=== PATIENT | male | born 1960 | race Caucasian/White ===

== ENCOUNTER 2022-12-20 10:49 | Emergency (ER) | payer MEDICAID ==
--- NOTE | 2022-12-20 10:59 | ERPHSYRPT ---
- History of Present Illness Time Seen by Provider: 12/20/22 10:59 Source: patient, EMS Exam Limitations: no limitations Physician History: This is a 62-year-old white male patient who has chronic back pain and degenerative disc disease as well as osteoarthritis in his back and presents with worsening back pain in the last 2 days. It is low back pain and there was no traumatic injury. Patient is on extended release morphine, Valium and gabapentin. He took those medications between 5 AM and 6 AM this morning. He does not have any urinary or bowel incontinence. He has no constipation and he has no numbness in his feet. He denies chest pain and he denies shortness of breath. He has no abdominal pain. Patient states that his pain in the last 2 days have worsened despite his treatment at home. Patient is an insulin- dependent diabetic, has hypertension, has hyperlipidemia, gastroesophageal reflux disease, COPD, and is taking Plavix. Timing/Duration: day(s) (2) Method of Injury: other (No acute traumatic injury) Quality: sharp, stabbing Back Pain Location: lumbar spine Severity of Pain-Max: moderate Severity of Pain-Current: moderate Modifying Factors: Improves With: movement Associated Symptoms: lower back pain, muscle spasms, No loss of bowel control, No constipation, No nausea, No vomiting, No numbness in legs/feet Previous symptoms: same symptoms as today, no recent treatment Allergies/Adverse Reactions: amitriptyline HCl [From Elavil] Allergy (Severe, Verified 12/20/22 11:08) Rapid Heart Beat hallucination tramadol HCl [From Ultram] Allergy (Severe, Verified 12/20/22 11:08) double vision alprazolam [From Xanax] Adverse Reaction (Severe, Verified 12/20/22 11:08) makes me aggitated Home Medications: Aspirin 81 mg PO HS 01/04/16 [History] Atorvastatin Calcium [Lipitor] 10 mg PO DAILY 01/04/16 [History] Bupropion HCl Xl 150 mg [Wellbutrin XL 150 MG] 150 mg PO HS 01/04/16 [History] Cholecalciferol (Vitamin D3) [Vitamin D3] 5,000 unit PO DAILY 01/04/16 [History] Clopidogrel Bisulfate [PLAVIX 75 MG Tablet] 75 mg PO DAILY 01/04/16 [History] Clorazepate Dipotassium 15 mg PO TID 01/04/16 [History] Dextran 70/Hypromellose [Artificial Tears Eye Drops] 1 drop OP BID 01/04/16 [History] Famotidine 40 mg PO BID 01/04/16 [History] Fluticasone/Salmeterol [Advair 250-50 Diskus] 1 each IH BID 01/04/16 [History] Gabapentin [Neurontin] 300 mg PO TID 01/04/16 [History] Insulin Aspart [NovoLOG Insulin] 5 unit SQ QPM 01/04/16 [History] Insulin Glargine [Lantus Insulin] 50 unit SQ DAILY 01/04/16 [History] Ipratropium [place] 0.5 mg [Atrovent 0.5MG NEBULE] 0.5 mg IH BID 01/04/16 [History] Meloxicam 15 mg [Meloxicam 15 MG] 15 mg PO DAILY 01/04/16 [History] Morphine Sulfate [Morphine Sulfate ER] 60 mg PO TID 01/04/16 [History] Nebivolol HCl [Bystolic] 5 mg PO QAM 01/04/16 [History] Nebivolol HCl [Bystolic] 10 mg PO HS 01/04/16 [History] Omeprazole 20 MG [Prilosec 20 mg] 40 mg PO BID 01/04/16 [History] Ranolazine 500 MG [Ranexa 500 MG] 1,000 mg PO BID 01/04/16 [History] Theophylline Anhydrous [Dmitriy-24] 300 mg PO BID 01/04/16 [History] Tizanidine HCl 4 mg [Zanaflex 4 MG] 4 mg PO TID 01/04/16 [History] raNITIdine HCl [Zantac] 300 mg PO DAILY 01/04/16 [History] Hx Tetanus, Diphtheria Vaccination/Date Given: (unknown) Hx Influenza Vaccination/Date Given: Yes Hx Pneumococcal Vaccination/Date Given: Yes Travel Risk - International Travel Have you traveled outside of the country in past 3 weeks: No - Coronavirus Screening Are you exhibiting any of the following symptoms?: No Close contact with a COVID-19 positive Pt in past 14-21 Days: No - Review of Systems Constitutional: No Symptoms Eyes: No Symptoms Ears, Nose, & Throat: No Symptoms Respiratory: No Symptoms Cardiac: No Symptoms Abdominal/Gastrointestinal: No Symptoms Genitourinary Symptoms: No Symptoms Musculoskeletal: Back Pain, No Fall Skin: No Symptoms Neurological: No Symptoms Psychological: No Symptoms Endocrine: No Symptoms Hematologic/Lymphatic: No Symptoms Immunological/Allergic: No Symptoms All Other Systems: Reviewed and Negative - Past Medical History Pertinent Past Medical History: Yes Neurological History: Migraines, Peripheral Neuropathy ENT History: Cataracts Cardiac History: Coronary Artery Disease, Hypertension Respiratory History: Asthma, COPD, Emphysema Endocrine Medical History: Diabetes Type II Musculoskeletal History: Arthritis, Degenerative Disk Disease, Osteoarthritis, Other GI Medical History: GERD History: No Pertinent History Psycho-Social History: Anxiety, Depression Male Reproductive Disorders: No Pertinent History Other Medical History: carpel tunnel - Past Surgical History Past Surgical History: Yes Neuro Surgical History: No Pertinent History Cardiac: Cardiac Stent Respiratory: Other Gastrointestinal: No Pertinent History Genitourinary: No Pertinent History Musculoskeletal: Other Male Surgical History: No Pertinent History Other Surgical History: finger surgery, - Social History Smoking Status: Former smoker How long have you smoked: 40 years Exposure to second hand smoke: No Alcohol Use: None Drug Use: none Patient Lives Alone: No Significant Family History: heart disease, diabetes, hypertension - Nursing Vital Signs Nursing Vital Signs: Initial Vital Signs Temperature 98.3 F 12/20/22 10:51 Pulse Rate 70 12/20/22 10:51 Blood Pressure 133/82 12/20/22 10:51 O2 Sat by Pulse Oximetry 97 12/20/22 10:51 Pain Scale Pain Intensity 4 - Physical Exam General Appearance: no apparent distress, alert, anxiety, other (Patient arrives by paramedics 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) Eye Exam: PERRL/EOMI, eyes nml inspection Ears, Nose, Throat Exam: normal ENT inspection, moist mucous membranes Neck Exam: normal inspection, non-tender, full range of motion Respiratory Exam: normal breath sounds, lungs clear, airway intact, No chest tenderness, No respiratory distress Cardiovascular Exam: regular rate/rhythm, normal heart sounds, normal peripheral pulses Gastrointestinal Exam: soft, normal bowel sounds, No tenderness Rectal Exam: not done Back Exam: normal inspection, normal range of motion, vertebral tenderness (Lumbar level), muscle spasm (Lumbar level), other (When I asked him to show me where his back pain is he was able to quickly and swiftly flex his back forward. He did not appear to be in severe discomfort while performing that maneuver), No CVA tenderness Extremity Exam: normal inspection, normal range of motion, pelvis stable Neurologic Exam: alert, oriented x 3, cooperative, rn care transition II-XII nml as tested, normal mood/affect Skin Exam: normal color, warm, dry Lymphatic Exam: No adenopathy SpO2 Interpretation: normal O2 Delivery: Room Air - Course Nursing assessment & vital signs reviewed: Yes Ordered Tests: Active Orders 24 hr Category Date Time Status LUMBAR SPINE W/O [CT] Stat Exams 12/20/22 11:08 Completed Medication Summary Discontinued Medications Generic Name Dose Route Start Last Admin Trade Name Freq PRN Reason Stop Dose Admin Methylprednisolone Sodium 0 mg 12/20/22 12:43 Succinate 125 mg/ Sterile IM 12/20/22 12:44 Water 2 ml STAT ONE Diazepam 2.5 mg 12/20/22 12:44 Diazepam 5 Mg Tablet PO 12/20/22 12:45 STAT ONE Hydromorphone HCl 1 mg 12/20/22 12:43 Hydromorphone 1 Mg/1ml Inj IM 12/20/22 12:44 STAT ONE Ondansetron HCl 4 mg 12/20/22 12:45 Zofran 4 Mg/Udtablet Orally Disintegrating PO 12/20/22 12:46 STAT ONE - Progress Progress: improved, pain not gone completely Progress Note: 12/20/22 11:51 CT scan of the lumbar spine was compared to a CT scan of the lumbar spine performed in 2013. There is worsening moderate to advanced multilevel degenerative disc changes/disease better evaluated by MRI. There is also interval worsening of markedly advanced bilateral hip degenerative changes. There are no acute compression fractures, dislocations or subluxations present. This patient's medical issue is 1 of low complexity. The level of complexity and the work-up performed is based on review of the patient's past medical history, review of the patient's medication list, review of the patient's drug allergy list, history present illness and physical findings on examination. ct scan lumbar spine contrast. I Reviewed the results of the studies. No acute, emergent medical issue. Will discuss with him how we can help him the best in the ED today. 12/20/22 11:59 07/03/23 12:47 The patient is focused on nerve pain control. The patient needs to get an outpatient referral from his primary care physician to a pain management physician. Today, I told him I would give him an injection of steroid 125 mg intramuscularly x1, Dilaudid 1 mg intramuscularly x1, oral Valium 2.5 mg x 1 and Zofran 4 mg ODT. Patient states that he is allergic to amitriptyline and he states that high-dose steroids and long-term steroids give him steroid rage and so we will avoid that long-term. Counseled pt/family regarding: diagnosis, need for follow-up, rad results Medical Desision Making - Independent Historian Additional History obtained from: [employer]/[facility] - Diagnostic Testing Diagnostic test were ordered, analyzed, and reviewed by me: Yes Radiological Interpretation: Reviewed by me, Teleradiologist Report - Risk of complications Low Risk: Low risk of morbidity from additional dx testing or treatment - Departure Departure Disposition: Home Clinical Impression: Acute exacerbation of chronic low back pain Condition: Stable Critical Care Time: No Referrals: DESIREE NGUYEN [ACTIVE STAFF] - Follow up/PCP as directed Additional Instructions: Call your primary care physician today and make arrangements for follow-up appointment and discuss possible referral to a pain specialist. Continue your other medication as prescribed
[2022-12-20 11:36] VITALS: PULSE 70
--- NOTE | 2022-12-20 11:42 | XRAY ---
Indication: Severe low back pain. No known injury. Multiple contiguous axial images obtained through the lumbar spine. Sagittal and coronal reformatted images obtained. Comparison: December 12, 2013 Osseous structures remain demineralized consistent with patient's age. Again moderate L4-S1 annular disc osteophyte complex with degenerative vacuum disc phenomena producing spinal canal narrowing and bilateral foraminal stenosis grossly unchanged. New L1-L4 broad-based disc bulge producing spinal canal narrowing and bilateral foraminal stenosis greatest at L3-L4. Also new L1-L2 degenerative vacuum disc phenomena. Facets remain symmetric. Again incidental 5 mm left sacral ala bone island. Visualized SI joints bilaterally symmetric. Sagittal and coronal reformatted images again demonstrate normal lumbar alignment/lordosis with L4-S1 disc space loss. New L1-L2 disc space narrowing. No acute compression fracture or subluxation. Visualized noncontrasted soft tissues now demonstrates minimal aortoiliac calcifications. Initial jonny scan demonstrates worsening markedly advanced bilateral hip degenerative changes, right greater than left. Impression: 1. Interval worsening moderate/advanced multilevel degenerative disc disease better evaluated with outpatient MRI. 2. Also interval worsening markedly advanced bilateral hip degenerative changes. 3. Chronic findings including osteopenia, tiny left sacral bone island, and arteriosclerotic disease.
[2022-12-20] MEDS ORDERED: solu-MEDROL 125 MG, Sterile H2O 10 ml 2 ML IM ONE ×2 (12:43)
[2022-12-20] MEDS ORDERED: Hydromorphone 1 mg/ml Injection IM ONE (12:43)
[2022-12-20] MEDS ORDERED: Valium 5 MG PO ONE (12:44)
[2022-12-20] MEDS ORDERED: ZOFRAN ODT 4 MG PO ONE (12:45)
[2022-12-20] MEDS ORDERED: Valium 5 MG ONE (12:55)
[2022-12-20] MEDS ORDERED: Sterile H2O 10 ml IJ ONE (12:55)
[2022-12-20] MEDS ORDERED: solu-MEDROL ONE (12:56)
[2022-12-20] MEDS ORDERED: ZOFRAN ODT 4 MG ONE (12:56)
[2022-12-20] MEDS ORDERED: Hydromorphone 1 mg/ml Injection ONE (12:56)
[2022-12-20 13:10] VITALS: BP 120/73; O2SAT 97
== END 2022-12-20 13:37 | disposition home or self-care (01) ==
LOC: ED 10:49
DX: G89.29 Other chronic pain (principal); M54.50 Low back pain, unspecified; E11.42 Type 2 diabetes mellitus with diabetic polyneuropathy; I10 Essential (primary) hypertension; E78.5 Hyperlipidemia, unspecified; Z79.02 Long term (current) use of antithrombotics/antiplatelets; Z79.4 Long term (current) use of insulin; Z79.891 Long term (current) use of opiate analgesic; Z79.899 Other long term (current) drug therapy
CPT/HCPCS: 72131; 96372; 99284; J1170; J2930; Q0162; A9270-GY

== ENCOUNTER 2023-08-24 09:00 | Observation (INO) | payer MEDICAID ==
--- NOTE | 2023-08-24 09:05 | ERPHSYRPT ---
- History of Present Illness Time Seen by Provider: 08/24/23 09:04 Source: patient, EMS, old records Exam Limitations: no limitations Physician History: This is an obese 63-year-old white male patient of Dr. Sanderson who is a resident from [facility] brought to us by the paramedics who provided additional, independent history secondary to the patient's confusion. In addition I reviewed the senior living notes. Patient was brought to us because of worsening shortness of breath over the last few days. Patient has a history of COPD and wears 4 L of oxygen via nasal cannula. In addition, the patient was not tracking well and is confused. He presents with a low-grade fever. His room air oxygen saturation levels on room air were 94%. Patient has a history of osteoarthritis and chronic low back pain. In addition he has a history of insulin-dependent diabetes, hypertension, hyperlipidemia, gastroesophageal reflux disease, coronary disease and peripheral neuropathy. Patient is on Plavix daily. Patient denies chest pain and he denies abdominal pain. He is mildly confused. Severity of Dyspnea-Max: mild Severity of Dyspnea-Current: mild Possible Cause: occasional episodes Modifying Factors: Improves With: activity Associated Symptoms: cough, No chest pain/discomfort Allergies/Adverse Reactions: amitriptyline HCl [From Elavil] Allergy (Severe, Verified 08/24/23 09:24) Rapid Heart Beat hallucination tramadol HCl [From Ultram] Allergy (Severe, Verified 08/24/23 09:24) double vision divalproex sodium [From Depakote] Allergy (Verified 08/24/23 09:24) alprazolam [From Xanax] Adverse Reaction (Severe, Verified 08/24/23 09:24) makes me aggitated Home Medications: Cholecalciferol (Vitamin D3) [Vitamin D3] 5,000 unit PO DAILY 01/04/16 [History] Clopidogrel Bisulfate [PLAVIX 75 MG Tablet] 75 mg PO DAILY 01/04/16 [History] Famotidine 40 mg PO BID 01/04/16 [History] Insulin Aspart [NovoLOG Insulin] 10 unit SQ AC 01/04/16 [History] Morphine Sulfate [Morphine Sulfate ER] 60 mg PO TID 01/04/16 [History] Ranolazine 500 MG [Ranexa 500 MG] 500 mg PO BID 01/04/16 [History] Baclofen 10 mg [Lioresal 10 mg] 10 mg PO BID 12/20/22 [History] Calcium Carbonate/Vitamin D3 [Calcium 600-Vit D3 200 Tablet] 1 each PO DAILY 12/20/22 [History] Diazepam [Valium] 2 mg PO BID 12/20/22 [History] Fluticasone Propionate [Flovent Diskus] 1 spray NS DAILY 12/20/22 [History] Fluticasone/Umeclidin/Vilanter [Trelegy Ellipta 200-62.5-25] 1 inh PO DAILY 12/20/22 [History] Folic Acid 1 mg [Folate 1 mg] 1 mg PO DAILY 12/20/22 [History] Linagliptin [Tradjenta] 5 mg PO DAILY 12/20/22 [History] Montelukast Sodium 10 mg [Singulair 10 MG] 10 mg PO QHS 12/20/22 [History] PANTOPRAZOLE 40 mg Tablet [Protonix 40MG Tablet] 40 mg PO BID 12/20/22 [History] Sertraline HCl 50 mg PO DAILY 12/20/22 [History] Sucralfate 1 gm [Carafate 1 GM] 1 gm PO BID 12/20/22 [History] guaiFENesin [Mucus ER] 600 mg PO Q12H 12/20/22 [History] Acetaminophen 325 mg [Tylenol 325 mg] 650 mg PO Q4H PRN PRN 08/24/23 [History] Albuterol Common Canister [Ventolin Common Canister] 2 puff IH Q4H PRN PRN 08/24/23 [History] Calcium Carbonate [Alexis-Gest] 400 mg PO Q6H PRN PRN 08/24/23 [History] Carboxymethylcellulose Sodium [Refresh Liquigel] 2 drop OP QID 08/24/23 [History] Gabapentin 400 mg PO QID 08/24/23 [History] Insulin Aspart [Insulin Aspart Flexpen] 1 unit SQ UD 08/24/23 [History] Insulin Detemir [Levemir] 60 unit SQ BID 08/24/23 [History] Latanoprost [Xalatan] 1 drop OP QHS 08/24/23 [History] Loperamide HCl 2 mg [Imodium 2 mg] 2 mg PO Q6H PRN PRN 08/24/23 [History] Mag Hydrox/Aluminum Hyd/Simeth [Mylanta Maximum Strength Liq] 10 ml PO QID 08/24/23 [History] Melatonin 10 mg PO QHS 08/24/23 [History] Metoclopramide HCl 5 mg PO BID 08/24/23 [History] Mineral Oil/Hydrophil Petrolat [Aquaphor Healing Ointment] 1 applic TOP Q12H PRN PRN 08/24/23 [History] Nitroglycerin 0.4 mg Tablet [Nitrostat 0.4 MG Tablet] 0.4 mg SL UD 08/24/23 [History] Non-Formulary Drug [Non-Formulary Item] 1 applic TOP TID 08/24/23 [History] Propranolol HCl 60 mg PO BID 08/24/23 [History] Rosuvastatin Calcium 20 mg PO QHS 08/24/23 [History] Sodium Chloride Nasal Gateway [OCEAN Nasal Gateway] 2 spray NS Q4H PRN PRN 08/24/23 [History] Sodium Chloride/Aloe Vera [Saline Nasal Gel] 1 applic NS Q2H/PRN PRN 08/24/23 [History] Topiramate [Topamax] 75 mg PO BID 08/24/23 [History] Zinc Gluconate [Zinc] 50 mg PO DAILY 08/24/23 [History] levalbuterol HCl [Xopenex 1.25 MG/0.5 ML UD NEBULE] 2 puff IH QID 08/24/23 [History] Hx Tetanus, Diphtheria Vaccination/Date Given: (unknown) Hx Influenza Vaccination/Date Given: Yes Hx Pneumococcal Vaccination/Date Given: Yes Travel Risk - International Travel Have you traveled outside of the country in past 3 weeks: No - Coronavirus Screening Are you exhibiting any of the following symptoms?: Yes Symptoms: Fever, Shortness of Breath Close contact with a COVID-19 positive Pt in past 14-21 Days: No - Vaccine Status Have you recieved a Covid-19 vaccination: No - Review of Systems Constitutional: Fever Eyes: No Symptoms Ears, Nose, & Throat: No Symptoms Respiratory: Dyspnea Cardiac: No Symptoms Abdominal/Gastrointestinal: No Symptoms Genitourinary Symptoms: No Symptoms Musculoskeletal: No Symptoms Skin: No Symptoms Neurological: Other (Mild confusion) Psychological: No Symptoms Endocrine: No Symptoms Hematologic/Lymphatic: No Symptoms Immunological/Allergic: No Symptoms All Other Systems: Reviewed and Negative - Past Medical History Pertinent Past Medical History: Yes Neurological History: Migraines, Peripheral Neuropathy ENT History: Cataracts Cardiac History: Coronary Artery Disease, Hypertension Respiratory History: Asthma, COPD, Emphysema Endocrine Medical History: Diabetes Type II Musculoskeletal History: Arthritis, Degenerative Disk Disease, Osteoarthritis, Other GI Medical History: GERD History: No Pertinent History Psycho-Social History: Anxiety, Depression Male Reproductive Disorders: No Pertinent History Other Medical History: carpel tunnel - Past Surgical History Past Surgical History: Yes Neuro Surgical History: No Pertinent History Cardiac: Cardiac Stent Respiratory: Other Gastrointestinal: No Pertinent History Genitourinary: No Pertinent History Musculoskeletal: Other Male Surgical History: No Pertinent History Other Surgical History: finger surgery, - Social History Smoking Status: Former smoker How long have you smoked: 40 years Exposure to second hand smoke: No Alcohol Use: None Drug Use: none Patient Lives Alone: No Significant Family History: heart disease, diabetes, hypertension - Nursing Vital Signs Nursing Vital Signs: Initial Vital Signs Temperature 101 F 08/24/23 09:06 Pulse Rate 95 H 08/24/23 09:06 Respiratory Rate 18 08/24/23 09:06 Blood Pressure 100/64 08/24/23 09:06 O2 Sat by Pulse Oximetry 93 L 08/24/23 09:06 Pain Scale Pain Intensity 0 - Physical Exam General Appearance: no apparent distress, alert, obese, other (Mildly confused) Eye Exam: PERRL/EOMI, eyes nml inspection Ears, Nose, Throat Exam: hearing grossly normal, normal ENT inspection, normal pharynx Neck Exam: normal inspection, non-tender, supple, full range of motion Respiratory Exam: airway intact, rhonchi (Mild on the left side), No respiratory distress, No wheezing Cardiovascular/Chest Exam: normal heart sounds, regular rate/rhythm, normal peripheral pulses Abdominal/Gastrointestinal Exam: soft, normal bowel sounds, No tenderness Rectal Exam: not done Extremity Exam: no pedal edema, pelvis stable Neurologic Exam: alert, cooperative, 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 Oriented to self and location. However not oriented to time) Skin Exam: normal color, warm, dry Lymphatic Exam: No adenopathy SpO2 Interpretation: borderline oxygenation O2 Delivery: Room Air - Course Nursing assessment & vital signs reviewed: Yes EKG Interpreted by Me: RATE (98), Sinus Rhythm, NORMAL AXIS, NORMAL INTERVALS, NORMAL QRS, NORMAL ST-T, Other (No acute ischemia on today's twelve-lead EKG.) Ordered Tests: Active Orders 24 hr Category Date Time Status New Accounts Banking Representative STAT Care 08/24/23 09:14 Active EKG-ER Only STAT Care 08/24/23 09:13 Active IV Insertion STAT Care 08/24/23 09:13 Active Oxygen-ED Only Nasal Cannula 4 lpm Care 08/24/23 09:13 Active CHEST 1 VIEW (PORTABLE) Stat Exams 08/24/23 09:14 Completed HEAD WITHOUT CONTRAST [CT] Stat Exams 08/24/23 09:15 Completed BLOOD CULTURE Stat Lab 08/24/23 10:05 Received CBC W DIFF Stat Lab 08/24/23 09:45 Completed CMP Stat Lab 08/24/23 09:45 Completed Lactic Acid Stat Lab 08/24/23 09:30 Completed MONO SCREEN Stat Lab 08/24/23 09:45 Completed NT PRO BNPII Stat Lab 08/24/23 09:45 Completed PROTIME WITH INR Stat Lab 08/24/23 09:45 Completed TROPONIN Q4H Lab 08/24/23 09:45 Completed TROPONIN Q4H Lab 08/24/23 13:15 Ordered TROPONIN Q4H Lab 08/24/23 17:15 Ordered UA W/RFX UR CULTURE Stat Lab 08/24/23 11:28 Completed Respiratory Therapy Assessment DAILY RT 08/24/23 09:26 Active Medication Summary Generic Name Dose Route Start Last Admin Trade Name Freq PRN Reason Stop Dose Admin Sodium Chloride 1,000 mls @ 100 mls/hr 08/24/23 09:15 08/24/23 10:00 Sodium Chloride 0.9% 1000 Ml IV 09/23/23 09:14 100 mls/hr .Q10H BRADLEY Administration Ceftriaxone Sodium 1 gm in 100 mls @ 200 mls/hr 08/24/23 11:55 08/24/23 12:00 Rocephin 1 Gm / 100 Ml Nacl IV 08/24/23 12:24 200 mls/hr STAT ONE 200 mls/hr Administration Discontinued Medications Generic Name Dose Route Start Last Admin Trade Name Mac PRN Reason Stop Dose Admin Acetaminophen 650 mg 08/24/23 12:00 Acetaminophen 325 Mg Tablet PO 08/24/23 12:01 STAT ONE Albuterol Sulfate 2.5 mg 08/24/23 09:13 08/24/23 09:23 Albuterol Sulfate 2.5 Mg/3 Ml Neb IH 08/24/23 09:14 2.5 mg STAT ONE Administration Albuterol Sulfate Confirm 08/24/23 09:21 Albuterol Sulfate 2.5 Mg/3 Ml Neb Administered 08/24/23 09:22 Dose 2.5 mg IH .STK-MED ONE Methylprednisolone Sodium 0 mg 08/24/23 09:13 08/24/23 10:00 Succinate 125 mg/ Sterile IV 08/24/23 09:14 125 mg Water 2 ml STAT ONE Administration Ceftriaxone Sodium Confirm 08/24/23 11:59 Rocephin 1 Gm / 100 Ml Nacl Administered 08/24/23 12:00 Dose 1 gm in 100 mls @ ud IV .STK-MED ONE Methylprednisolone Sodium Succinate Confirm 08/24/23 09:59 Methylprednis Sod Succ 125 Mg/2 Ml Vial Administered 08/24/23 10:00 Dose 125 mg .ROUTE .STK-MED ONE Sterile Water Confirm 08/24/23 09:59 Water For Injection,Sterile 10 Ml Vial Administered 08/24/23 10:00 Dose 10 ml IJ .STK-MED ONE Lab/Rad Data: Laboratory Result Diagrams 08/24/23 09:45 08/24/23 09:45 Laboratory Results 08/24/23 08/24/23 08/24/23 Range/Units 11:28 10:08 10:08 WBC (4.0-10.5) x10^3/uL RBC (4.1-5.6) x10^6/uL Hgb (12.5-18.0) g/dL Hct (42-50) % MCV (78-100) fL MCH (26-32) pg MCHC (32-36) g/dL RDW (11.5-14.0) % Plt Count (150-450) x10^3/uL MPV (7.5-11.0) fL Gran % (36.0-66.0) % Immature Gran % (Auto) (0.00-0.4) % Nucleat RBC Rel Count (0.00-0.1) % Eos # (Auto) (0-0.5) x10^3/uL Immature Gran # (Auto) (0.00-0.03) x10^3u/L Absolute Lymphs (auto) (1.0-4.6) x10^3/uL Absolute Monos (auto) (0.0-1.3) x10^3/uL Absolute Nucleated RBC (0.00-0.01) x10^3u/L Lymphocytes % (24.0-44.0) % Monocytes % (0.0-12.0) % Eosinophils % (0.00-5.0) % Basophils % (0.0-0.4) % Absolute Granulocytes (1.4-6.9) x10^3/uL Basophils # (0-0.4) x10^3/uL PT (9.4-12.5) SECONDS INR (0.8-3.0) Sodium (135-145) mmol/L Potassium (3.5-5.1) mmol/L Chloride (98-107) mmol/L Carbon Dioxide (22-30) mmol/L Anion Gap (5-15) MEQ/L BUN (9-20) mg/dL Creatinine (0.66-1.25) mg/dL Estimated GFR ML/MIN Glucose (74-106) mg/dL Lactic Acid (0.4-2.0) Calcium (8.4-10.2) mg/dL Total Bilirubin (0.2-1.3) mg/dL AST (17-59) U/L ALT (0-50) U/L Alkaline Phosphatase (38-126) U/L Ammonia (9-30) umol/L Troponin I (0.000-0.034) ng/mL NT-Pro-B Natriuret Pep (<300) pg/mL Serum Total Protein (6.3-8.2) g/dL Albumin (3.5-5.0) g/dL Urine Color Yellow (Yellow) Urine Appearance Clear (Clear) Urine pH 7.5 (4.6-8.0) Ur Specific Nucla 1.020 (1.005-1.030) Urine Protein Negative (Negative) Urine Glucose (UA) Negative (Negative) mg/dL Urine Ketones Negative (Negative) Urine Blood Negative (Negative) Urine Nitrite Negative (Negative) Urine Bilirubin Negative (Negative) Urine Urobilinogen 0.2 (0.2) mg/dL Ur Leukocyte Esterase Negative (Negative) U Hyaline Cast (Auto) NONE SEEN (0-2) /LPF Urine Microscopic RBC 0-2 (0-5) /HPF Urine Microscopic WBC 0-2 (0-5) /HPF Ur Epithelial Cells None Seen (None Seen) /HPF Urine Bacteria None Seen (None Seen) /HPF Urine Culture Reflexed NO (NO) Monoscreen (NEGATIVE) Influenza Type A Ag NEGATIVE (NEGATIVE) Influenza Type B Ag NEGATIVE (NEGATIVE) RSV (PCR) NEGATIVE (NEGATIVE) SARS-CoV-2 (PCR) NEGATIVE (NEGATIVE) Group A Strep Antibody NOT DETECTED (NEGATIVE) 08/24/23 08/24/23 08/24/23 Range/Units 09:45 09:45 09:45 WBC (4.0-10.5) x10^3/uL RBC (4.1-5.6) x10^6/uL Hgb (12.5-18.0) g/dL Hct (42-50) % MCV (78-100) fL MCH (26-32) pg MCHC (32-36) g/dL RDW (11.5-14.0) % Plt Count (150-450) x10^3/uL MPV (7.5-11.0) fL Gran % (36.0-66.0) % Immature Gran % (Auto) (0.00-0.4) % Nucleat RBC Rel Count (0.00-0.1) % Eos # (Auto) (0-0.5) x10^3/uL Immature Gran # (Auto) (0.00-0.03) x10^3u/L Absolute Lymphs (auto) (1.0-4.6) x10^3/uL Absolute Monos (auto) (0.0-1.3) x10^3/uL Absolute Nucleated RBC (0.00-0.01) x10^3u/L Lymphocytes % (24.0-44.0) % Monocytes % (0.0-12.0) % Eosinophils % (0.00-5.0) % Basophils % (0.0-0.4) % Absolute Granulocytes (1.4-6.9) x10^3/uL Basophils # (0-0.4) x10^3/uL PT (9.4-12.5) SECONDS INR (0.8-3.0) Sodium (135-145) mmol/L Potassium (3.5-5.1) mmol/L Chloride (98-107) mmol/L Carbon Dioxide (22-30) mmol/L Anion Gap (5-15) MEQ/L BUN (9-20) mg/dL Creatinine (0.66-1.25) mg/dL Estimated GFR ML/MIN Glucose (74-106) mg/dL Lactic Acid (0.4-2.0) Calcium (8.4-10.2) mg/dL Total Bilirubin (0.2-1.3) mg/dL AST (17-59) U/L ALT (0-50) U/L Alkaline Phosphatase (38-126) U/L Ammonia 9 (9-30) umol/L Troponin I < 0.012 (0.000-0.034) ng/mL NT-Pro-B Natriuret Pep (<300) pg/mL Serum Total Protein (6.3-8.2) g/dL Albumin (3.5-5.0) g/dL Urine Color (Yellow) Urine Appearance (Clear) Urine pH (4.6-8.0) Ur Specific Nucla (1.005-1.030) Urine Protein (Negative) Urine Glucose (UA) (Negative) mg/dL Urine Ketones (Negative) Urine Blood (Negative) Urine Nitrite (Negative) Urine Bilirubin (Negative) Urine Urobilinogen (0.2) mg/dL Ur Leukocyte Esterase (Negative) U Hyaline Cast (Auto) (0-2) /LPF Urine Microscopic RBC (0-5) /HPF Urine Microscopic WBC (0-5) /HPF Ur Epithelial Cells (None Seen) /HPF Urine Bacteria (None Seen) /HPF Urine Culture Reflexed (NO) Monoscreen NEGATIVE (NEGATIVE) Influenza Type A Ag (NEGATIVE) Influenza Type B Ag (NEGATIVE) RSV (PCR) (NEGATIVE) SARS-CoV-2 (PCR) (NEGATIVE) Group A Strep Antibody (NEGATIVE) 08/24/23 08/24/23 08/24/23 Range/Units 09:45 09:45 09:45 WBC 9.3 (4.0-10.5) x10^3/uL RBC 3.77 L (4.1-5.6) x10^6/uL Hgb 11.0 L (12.5-18.0) g/dL Hct 35.0 L (42-50) % MCV 92.8 (78-100) fL MCH 29.2 (26-32) pg MCHC 31.4 L (32-36) g/dL RDW 13.3 (11.5-14.0) % Plt Count 171 (150-450) x10^3/uL MPV 9.0 (7.5-11.0) fL Gran % 76.2 H (36.0-66.0) % Immature Gran % (Auto) 0.4 (0.00-0.4) % Nucleat RBC Rel Count 0.0 (0.00-0.1) % Eos # (Auto) 0.06 (0-0.5) x10^3/uL Immature Gran # (Auto) 0.04 H (0.00-0.03) x10^3u/L Absolute Lymphs (auto) 1.28 (1.0-4.6) x10^3/uL Absolute Monos (auto) 0.80 (0.0-1.3) x10^3/uL Absolute Nucleated RBC 0.00 (0.00-0.01) x10^3u/L Lymphocytes % 13.7 L (24.0-44.0) % Monocytes % 8.6 (0.0-12.0) % Eosinophils % 0.6 (0.00-5.0) % Basophils % 0.5 (0.0-0.4) % Absolute Granulocytes 7.09 H (1.4-6.9) x10^3/uL Basophils # 0.05 (0-0.4) x10^3/uL PT 11.4 (9.4-12.5) SECONDS INR 1.05 (0.8-3.0) Sodium 138 (135-145) mmol/L Potassium 4.0 (3.5-5.1) mmol/L Chloride 106 (98-107) mmol/L Carbon Dioxide 24 (22-30) mmol/L Anion Gap 12.6 (5-15) MEQ/L BUN 17 (9-20) mg/dL Creatinine 0.93 (0.66-1.25) mg/dL Estimated GFR 92.3 ML/MIN Glucose 109 H (74-106) mg/dL Lactic Acid (0.4-2.0) Calcium 8.4 (8.4-10.2) mg/dL Total Bilirubin 0.30 (0.2-1.3) mg/dL AST 23 (17-59) U/L ALT 20 (0-50) U/L Alkaline Phosphatase 86 (38-126) U/L Ammonia (9-30) umol/L Troponin I (0.000-0.034) ng/mL NT-Pro-B Natriuret Pep 205 (<300) pg/mL Serum Total Protein 6.4 (6.3-8.2) g/dL Albumin 3.6 (3.5-5.0) g/dL Urine Color (Yellow) Urine Appearance (Clear) Urine pH (4.6-8.0) Ur Specific Nucla (1.005-1.030) Urine Protein (Negative) Urine Glucose (UA) (Negative) mg/dL Urine Ketones (Negative) Urine Blood (Negative) Urine Nitrite (Negative) Urine Bilirubin (Negative) Urine Urobilinogen (0.2) mg/dL Ur Leukocyte Esterase (Negative) U Hyaline Cast (Auto) (0-2) /LPF Urine Microscopic RBC (0-5) /HPF Urine Microscopic WBC (0-5) /HPF Ur Epithelial Cells (None Seen) /HPF Urine Bacteria (None Seen) /HPF Urine Culture Reflexed (NO) Monoscreen (NEGATIVE) Influenza Type A Ag (NEGATIVE) Influenza Type B Ag (NEGATIVE) RSV (PCR) (NEGATIVE) SARS-CoV-2 (PCR) (NEGATIVE) Group A Strep Antibody (NEGATIVE) 08/24/23 Range/Units 09:30 WBC (4.0-10.5) x10^3/uL RBC (4.1-5.6) x10^6/uL Hgb (12.5-18.0) g/dL Hct (42-50) % MCV (78-100) fL MCH (26-32) pg MCHC (32-36) g/dL RDW (11.5-14.0) % Plt Count (150-450) x10^3/uL MPV (7.5-11.0) fL Gran % (36.0-66.0) % Immature Gran % (Auto) (0.00-0.4) % Nucleat RBC Rel Count (0.00-0.1) % Eos # (Auto) (0-0.5) x10^3/uL Immature Gran # (Auto) (0.00-0.03) x10^3u/L Absolute Lymphs (auto) (1.0-4.6) x10^3/uL Absolute Monos (auto) (0.0-1.3) x10^3/uL Absolute Nucleated RBC (0.00-0.01) x10^3u/L Lymphocytes % (24.0-44.0) % Monocytes % (0.0-12.0) % Eosinophils % (0.00-5.0) % Basophils % (0.0-0.4) % Absolute Granulocytes (1.4-6.9) x10^3/uL Basophils # (0-0.4) x10^3/uL PT (9.4-12.5) SECONDS INR (0.8-3.0) Sodium (135-145) mmol/L Potassium (3.5-5.1) mmol/L Chloride (98-107) mmol/L Carbon Dioxide (22-30) mmol/L Anion Gap (5-15) MEQ/L BUN (9-20) mg/dL Creatinine (0.66-1.25) mg/dL Estimated GFR ML/MIN Glucose (74-106) mg/dL Lactic Acid 1.3 (0.4-2.0) Calcium (8.4-10.2) mg/dL Total Bilirubin (0.2-1.3) mg/dL AST (17-59) U/L ALT (0-50) U/L Alkaline Phosphatase (38-126) U/L Ammonia (9-30) umol/L Troponin I (0.000-0.034) ng/mL NT-Pro-B Natriuret Pep (<300) pg/mL Serum Total Protein (6.3-8.2) g/dL Albumin (3.5-5.0) g/dL Urine Color (Yellow) Urine Appearance (Clear) Urine pH (4.6-8.0) Ur Specific Nucla (1.005-1.030) Urine Protein (Negative) Urine Glucose (UA) (Negative) mg/dL Urine Ketones (Negative) Urine Blood (Negative) Urine Nitrite (Negative) Urine Bilirubin (Negative) Urine Urobilinogen (0.2) mg/dL Ur Leukocyte Esterase (Negative) U Hyaline Cast (Auto) (0-2) /LPF Urine Microscopic RBC (0-5) /HPF Urine Microscopic WBC (0-5) /HPF Ur Epithelial Cells (None Seen) /HPF Urine Bacteria (None Seen) /HPF Urine Culture Reflexed (NO) Monoscreen (NEGATIVE) Influenza Type A Ag (NEGATIVE) Influenza Type B Ag (NEGATIVE) RSV (PCR) (NEGATIVE) SARS-CoV-2 (PCR) (NEGATIVE) Group A Strep Antibody (NEGATIVE) - Progress Progress: improved Air Movement: fair Progress Note: 08/24/23 09:21 This patient's medical issue is 1 of moderate to high complexity. Level complexity in the workup performed is based on review of the patient's past medical history, review of patient's medication list, review of patient drug allergy list, history present illness and physical findings on examination. Workup in this patient includes placement of intravenous line, obtaining twelve- lead EKG, obtaining a urine specimen for urinalysis, infusion of low rate and normal saline, BNP, troponin level, ammonia level, CBC, CMP, lactic acid level, and chest x-ray. We will also have respiratory therapy evaluate the patient and provide nebulizer with albuterol. I will also provide the patient with 125 mg intravenous Solu-Medrol. 08/24/23 11:56 I interpreted the patient's laboratory data results. The patient has no laboratory evidence to suggest an acute, emergent medical issue. However, the radiologist interpreted the patient's chest x-ray which shows new diffuse right lung and new left base infiltrates with small bibasilar effusions. The radiologist also interpreted the CT scan of the head without contrast. His interpretation is that this is a normal study. 08/24/23 12:[address] Chavez, the telehospitalist. I reviewed the patient history, I reviewed the patient's chief complaint, I reviewed the results of the laboratory data and radiographic studies. We agree that we will admit this patient in the hospital provide him with respiratory therapy care, intravenous antibiotics, antipyretics, low-dose IV fluids. Blood Culture(s) Obtained: Yes Antibiotics given: Yes Counseled pt/family regarding: lab results, diagnosis, rad results Medical Desision Making - Independent Historian Additional History obtained from: Wireline Operator/EMT - Discussion of managment Reviewed:: Test results, Need for additional workup Agreed on:: decision to admit Will see patient: in hospital - Diagnostic Testing Diagnostic test were ordered, analyzed, and reviewed by me: Yes Radiological Interpretation: Reviewed by me, Teleradiologist Report - Risk of complications The pt has a high risk of morbidity or mortality based on: Decision regarding hospitilization or escalation of hosp level of care - Departure Departure Disposition: In-patient Admission Clinical Impression: Pneumonia, Bilateral pleural effusion, Altered mental status, Fever Condition: Fair Critical Care Time: No Referrals: TERENCE SANDERSON MD [Primary Care Provider] - Follow up/PCP as directed
[2023-08-24] MEDS ORDERED: PROVENTIL 2.5 MG/3 ML NEB IH ONE ×2 (09:21→17:33)
[2023-08-24] MEDS: PROVENTIL 2.5 MG/3 ML NEB IH ONE (09:23)
[2023-08-24] MEDS ORDERED: Sterile H2O 10 ml IJ ONE (09:59)
[2023-08-24] MEDS ORDERED: solu-MEDROL ONE (09:59)
[2023-08-24] MEDS: Sodium Chloride 0.9% 1000 ML 1,000 ML IV SCH ×2 (10:00→17:44)
[2023-08-24] MEDS: solu-MEDROL 125 MG, Sterile H2O 10 ml 2 ML IV ONE (10:00)
--- NOTE | 2023-08-24 10:10 | XRAY ---
Indication: Fever and confusion. Comparison: January 04, 2016 Portable chest rotated demonstrating new diffuse right lung and new left base infiltrates/atelectasis with small bibasilar effusions. Heart not enlarged. Bony thorax intact again with osteopenia and degenerative changes.
[2023-08-24 10:20] LABS: Absolute Neutrophil Ct (ANC) 7.09 x10^3/uL (1.4-6.9); BASOPHIL % 0.5 % (0.0-0.4); Basophil (Absolute #) 0.05 x10^3/uL (0-0.4); Eosinophil % 0.6 % (0.00-5.0); Eosinophil (Absolute #) 0.06 x10^3/uL (0-0.5); IMMATURE GRAN # 0.04 x10^3u/L (0.00-0.03); IMMATURE GRAN % 0.4 % (0.00-0.4); Lymphocyte (Absolute #) 1.28 x10^3/uL (1.0-4.6); Lymphocytes % 13.7 % (24.0-44.0); Mean Cell Volume 92.8 fL (78-100); Mean Corpuscular Hemoglobin 29.2 pg (26-32); Mean Corpuscular Hgb Concent. 31.4 g/dL (32-36); Monocytes % 8.6 % (0.0-12.0); Neutrophil % 76.2 % (36.0-66.0); Platelet Count 171 x10^3/uL (150-450); Red Blood Count 3.77 x10^6/uL (4.1-5.6); Red Cell Distribution Width 13.3 % (11.5-14.0); White Blood Count 9.3 x10^3/uL (4.0-10.5)
[2023-08-24 10:31] LABS: INR 1.05 (0.8-3.0); PROTIME 11.4 SECONDS (9.4-12.5)
--- NOTE | 2023-08-24 10:41 | XRAY ---
Indication: Confusion, short of breath, and fever. Multiple contiguous axial images obtained through the head without contrast. Comparison: July 17, 2014. Normal appearing brain parenchyma, ventricles, and bony calvarium for patient's age. Visualized paranasal sinuses and mastoid air cells are clear. Impression: Continued normal CT head without contrast exam.
[2023-08-24 10:42] LABS: ALBUMIN 3.6 g/dL (3.5-5.0); ANION GAP 12.6 MEQ/L (5-15); BILIRUBIN,TOTAL 0.3 mg/dL (0.2-1.3); Calcium 8.4 mg/dL (8.4-10.2); Creatinine 1 0.93 mg/dL (0.66-1.25); EST GLOMERULAR FILTRATION RATE 92.3 ML/MIN; Total Protein 6.4 g/dL (6.3-8.2)
[2023-08-24 11:02] LABS: INFLUENZA A NEGATIVE (NEGATIVE); INFLUENZA B NEGATIVE (NEGATIVE); RESPIRATORY SYNCTIAL VIRUS NEGATIVE (NEGATIVE); SARS-CoV-2 Xpert Express NEGATIVE (NEGATIVE)
[2023-08-24 11:39] LABS: Appearance Clear (Clear); Bacteria None Seen /HPF (None Seen); Bilirubin Negative (Negative); Blood Negative (Negative); Epithelial Cells None Seen /HPF (None Seen); Glucose, Urine Negative (Negative); Hyaline Casts NONE SEEN /LPF (0-2); Ketones Negative (Negative); Leukocyte Esterase Negative (Negative); Nitrite Negative (Negative); Ph 7.5 (4.6-8.0); Protein,Urine Dip Negative (Negative); RBC 0-2 /HPF (0-5); Urobilinogen 0.2 mg/dL (0.2); WBC 0-2 /HPF (0-5)
[2023-08-24 11:40] LABS: ADD URINE CULTURE? NO (NO)
[2023-08-24] MEDS ORDERED: ROCEPHIN 1 GM / 100 ML NaCl 0 GM/0 ML IVPB IV ONE (11:59)
[2023-08-24] MEDS: ROCEPHIN 1 GM / 100 ML NaCl 1 GM/100 ML IVPB IV ONE (12:00)
[2023-08-24] MEDS ORDERED: ROCEPHIN 1 GM / 100 ML NaCl 1 GM/100 ML IVPB IV ONE (12:02)
[2023-08-24] MEDS ORDERED: TYLENOL 325 MG ONE (12:02)
[2023-08-24] MEDS: TYLENOL 325 MG PO ONE (12:07)
[2023-08-24] MEDS ORDERED: MORPHINE SULFATE 2 MG INJ ONE (12:22)
[2023-08-24] MEDS ORDERED: Zofran 4 MG/2 ML VIAL ONE (12:22)
[2023-08-24] MEDS: MORPHINE SULFATE 2 MG INJ IV ONE (12:23)
[2023-08-24] MEDS: Zofran 4 MG/2 ML VIAL IV ONE (12:23)
[2023-08-24] MEDS ORDERED: TYLENOL 325 MG PO PRN (13:20)
[2023-08-24] MEDS ORDERED: Zofran 4 MG/2 ML VIAL IV PRN (13:20)
--- NOTE | 2023-08-24 13:39 | PCM.HP ---
History of Present Illness - Chief Complaint Chief Complaint: Hypoxia/AMS Date: 08/24/23 History of Present Illness: is a 63 year old male pmhx of COPD (4L baseline oxygen), IDDM, HTN, DDD, OA, Depression, HLD, GERD, CAD, [place], emphysema, and peripheral neuropathy who presented to ED 08/24/23 via EMS from his nursing facility with complaints of fever TMax 101, increased shortness of breath, productive cough with green sputum, and reported confusion. He is A&O x 4 during interview. Patient states onset was approximately two weeks ago but his cough and shortness of breath have progressed. At baseline he is at 4L oxygen, he is now requiring 5L. He also has chronic back pain and reports that he is coughing so much this has increased his pain. Denies cp, abdominal pain, VANN, dizziness, N/V/D. In ED, patient febrile at 101, hypotensive, with spo2 @ 93% on 4L oxygen. EKG NS with no ST elevations/deviations. CXR demonstrating right and left lung infiltrates with small bibasilar effusions. Head CT with no acute findings. Lab findings remarkable for normocytic anemia with hgb at 11, BNP at 205. Urine and viral panel negative. Patient given ceftriaxone/solu-medrol/proventil in ED. Admitted for acute respiratory failure with hypoxia secondary to pneumonia/COPD exacerbation. Plan for treatment with IV abx/ steroids/ supportive care. - Review of Systems Constitutional: Fever, Weakness Respiratory: Cough, Short Of Breath Abdominal/Gastrointestinal: No Symptoms Genitourinary Symptoms: No Symptoms Musculoskeletal: Back Pain Neurological: No Symptoms Psychological: No Symptoms Endocrine: No Symptoms Hematologic/Lymphatic: No Symptoms Immunological/Allergic: No Symptoms Medications & Allergies Home Medications: Home Medication List Cholecalciferol (Vitamin D3) [Vitamin D3] 5,000 unit PO DAILY 01/04/16 [History Confirmed 08/24/23] Clopidogrel Bisulfate [PLAVIX 75 MG Tablet] 75 mg PO DAILY 01/04/16 [History Confirmed 08/24/23] Famotidine 40 mg PO BID 01/04/16 [History Confirmed 08/24/23] Insulin Aspart [NovoLOG Insulin] 10 unit SQ AC 01/04/16 [History Confirmed 08/24/23] Morphine Sulfate [Morphine Sulfate ER] 60 mg PO TID 01/04/16 [History Confirmed 08/24/23] Ranolazine 500 MG [Ranexa 500 MG] 500 mg PO BID 01/04/16 [History Confirmed 08/24/23] Baclofen 10 mg [Lioresal 10 mg] 10 mg PO BID 12/20/22 [History Confirmed 08/24/23] Calcium Carbonate/Vitamin D3 [Calcium 600-Vit D3 200 Tablet] 1 each PO DAILY 12/20/22 [History Confirmed 08/24/23] Diazepam [Valium] 2 mg PO BID 12/20/22 [History Confirmed 08/24/23] Fluticasone Propionate [Flovent Diskus] 1 spray NS DAILY 12/20/22 [History Confirmed 08/24/23] Fluticasone/Umeclidin/Vilanter [Trelegy Ellipta 200-62.5-25] 1 inh PO DAILY 12/20/22 [History Confirmed 08/24/23] Folic Acid 1 mg [Folate 1 mg] 1 mg PO DAILY 12/20/22 [History Confirmed 08/24/23] Linagliptin [Tradjenta] 5 mg PO DAILY 12/20/22 [History Confirmed 08/24/23] Montelukast Sodium 10 mg [Singulair 10 MG] 10 mg PO QHS 12/20/22 [History Confirmed 08/24/23] PANTOPRAZOLE 40 mg Tablet [Protonix 40MG Tablet] 40 mg PO BID 12/20/22 [History Confirmed 08/24/23] Sertraline HCl 50 mg PO DAILY 12/20/22 [History Confirmed 08/24/23] Sucralfate 1 gm [Carafate 1 GM] 1 gm PO BID 12/20/22 [History Confirmed 08/24/23] guaiFENesin [Mucus ER] 600 mg PO Q12H 12/20/22 [History Confirmed 08/24/23] Acetaminophen 325 mg [Tylenol 325 mg] 650 mg PO Q4H PRN PRN 08/24/23 [History Confirmed 08/24/23] Albuterol Common Canister [Ventolin Common Canister] 2 puff IH Q4H PRN PRN 08/24/23 [History Confirmed 08/24/23] Calcium Carbonate [Alexis-Gest] 400 mg PO Q6H PRN PRN 08/24/23 [History Confirmed 08/24/23] Carboxymethylcellulose Sodium [Refresh Liquigel] 2 drop OP QID 08/24/23 [History Confirmed 08/24/23] Gabapentin 400 mg PO QID 08/24/23 [History Confirmed 08/24/23] Insulin Aspart [Insulin Aspart Flexpen] 1 unit SQ UD 08/24/23 [History Confirmed 08/24/23] Insulin Detemir [Levemir] 60 unit SQ BID 08/24/23 [History Confirmed 08/24/23] Latanoprost [Xalatan] 1 drop OP QHS 08/24/23 [History Confirmed 08/24/23] Loperamide HCl 2 mg [Imodium 2 mg] 2 mg PO Q6H PRN PRN 08/24/23 [History Confirmed 08/24/23] Mag Hydrox/Aluminum Hyd/Simeth [Mylanta Maximum Strength Liq] 10 ml PO QID 08/24/23 [History Confirmed 08/24/23] Melatonin 10 mg PO QHS 08/24/23 [History Confirmed 08/24/23] Metoclopramide HCl 5 mg PO BID 08/24/23 [History Confirmed 08/24/23] Mineral Oil/Hydrophil Petrolat [Aquaphor Healing Ointment] 1 applic TOP Q12H PRN PRN 08/24/23 [History Confirmed 08/24/23] Nitroglycerin 0.4 mg Tablet [Nitrostat 0.4 MG Tablet] 0.4 mg UD 08/24/23 [History Confirmed 08/24/23] Non-Formulary Drug [Non-Formulary Item] 1 applic TOP TID 08/24/23 [History Confirmed 08/24/23] Propranolol HCl 60 mg PO BID 08/24/23 [History Confirmed 08/24/23] Rosuvastatin Calcium 20 mg PO QHS 08/24/23 [History Confirmed 08/24/23] Sodium Chloride Nasal [place] [OCEAN Nasal [place]] 2 spray NS Q4H PRN PRN 08/24/23 [History Confirmed 08/24/23] Sodium Chloride/Aloe Vera [Saline Nasal Gel] 1 applic NS Q2H/PRN PRN 08/24/23 [History Confirmed 08/24/23] Topiramate [Topamax] 75 mg PO BID 08/24/23 [History Confirmed 08/24/23] Zinc Gluconate [Zinc] 50 mg PO DAILY 08/24/23 [History Confirmed 08/24/23] levalbuterol HCl [Xopenex 1.25 MG/0.5 ML UD [place]BU[place]] 2 puff IH QID 08/24/23 [History Confirmed 08/24/23] Allergies/Adverse Reactions: Allergies Allergy/AdvReac Type Severity Reaction Status Date / Time amitriptyline HCl Allergy Severe Rapid Verified 08/24/23 09:24 [From Elavil] Heart Beat tramadol HCl [From Ultram] Allergy Severe Verified 08/24/23 09:24 divalproex sodium Allergy Verified 08/24/23 09:24 [From Depakote] alprazolam [From Xanax] AdvReac Severe Verified 08/24/23 09:24 - Past Medical History Past Medical History: Yes Neurological History: Migraines, Peripheral Neuropathy ENT History: Cataracts Cardiac History: Coronary Artery Disease, Hypertension, Myocardial Infarction ([place]) (x 3) Respiratory History: Asthma, COPD, Emphysema Endocrine Medical History: Diabetes Type II Musculoskelatal History: Arthritis, Degenerative Disk Disease, Osteoarthritis, Other GI Medical History: GERD History: No Pertinent History Pyscho-Social History: Anxiety, Depression Male Reproductive Disorders: No Pertinent History Comment: carpel tunnel - Past Surgical History Past Surgical History: Yes Neuro Surgical History: No Pertinent History Cardiac History: Cardiac Stent Respiratory Surgery: Other GI Surgical History: No Pertinent History Genitourinary Surgical Hx: No Pertinent History Musculskeletal Surgical Hx: Other Male Surgical History: No Pertinent History Other Surgical History: finger surgery, Significant Family History: heart disease, diabetes, hypertension - Social History Smoking Status: Former smoker How long have you smoked: 40 years Exposure to second hand smoke: No Alcohol: None Drug Use: none - Physical Exam Vital Signs: Vital Signs - 24 hr Temp Pulse Resp BP Pulse Ox 08/24/23 12:45 83 15 103/76 97 08/24/23 12:30 89 23 103/63 97 08/24/23 12:15 81 16 111/60 100 08/24/23 12:00 84 15 88/60 98 08/24/23 11:45 99.4 F 87 14 93/56 96 08/24/23 11:31 88 13 122/59 97 08/24/23 11:18 93 H 22 88/55 97 08/24/23 11:16 89 17 76/46 96 08/24/23 11:08 87 10 L 84/48 97 08/24/23 10:00 93 H 14 95/59 08/24/23 09:30 91 H 13 99/60 08/24/23 09:26 95 H 20 92 L 08/24/23 09:06 101 F 95 H 18 100/64 93 L General Appearance: no apparent distress Neurologic Exam: alert, oriented x 3, cooperative Eye Exam: PERRL/EOMI Ears, Nose, Throat Exam: normal ENT inspection Neck Exam: normal inspection Respiratory Exam: diminished breath sounds Cardiovascular Exam: regular rate/rhythm, normal heart sounds Rectal Exam: deferred Back Exam: normal inspection Extremity Exam: normal inspection Skin Exam: normal color Results - Labs Lab/Micro Results: Lab Results-Last 24 Hours 08/24/23 08/24/23 08/24/23 Range/Units 09:30 09:45 09:45 WBC 9.3 (4.0-10.5) x10^3/uL RBC 3.77 L (4.1-5.6) x10^6/uL Hgb 11.0 L (12.5-18.0) g/dL Hct 35.0 L (42-50) % MCV 92.8 (78-100) fL MCH 29.2 (26-32) pg MCHC 31.4 L (32-36) g/dL RDW 13.3 (11.5-14.0) % Plt Count 171 (150-450) x10^3/uL MPV 9.0 (7.5-11.0) fL Gran % 76.2 H (36.0-66.0) % Immature Gran % (Auto) 0.4 (0.00-0.4) % Nucleat RBC Rel Count 0.0 (0.00-0.1) % Eos # (Auto) 0.06 (0-0.5) x10^3/uL Immature Gran # (Auto) 0.04 H (0.00-0.03) x10^3u/L Absolute Lymphs (auto) 1.28 (1.0-4.6) x10^3/uL Absolute Monos (auto) 0.80 (0.0-1.3) x10^3/uL Absolute Nucleated RBC 0.00 (0.00-0.01) x10^3u/L Lymphocytes % 13.7 L (24.0-44.0) % Monocytes % 8.6 (0.0-12.0) % Eosinophils % 0.6 (0.00-5.0) % Basophils % 0.5 (0.0-0.4) % Absolute Granulocytes 7.09 H (1.4-6.9) x10^3/uL Basophils # 0.05 (0-0.4) x10^3/uL PT (9.4-12.5) SECONDS INR (0.8-3.0) Sodium 138 (135-145) mmol/L Potassium 4.0 (3.5-5.1) mmol/L Chloride 106 (98-107) mmol/L Carbon Dioxide 24 (22-30) mmol/L Anion Gap 12.6 (5-15) MEQ/L BUN 17 (9-20) mg/dL Creatinine 0.93 (0.66-1.25) mg/dL Estimated GFR 92.3 ML/MIN Glucose 109 H (74-106) mg/dL POC Glucometer (74 to 106) mg/dL Lactic Acid 1.3 (0.4-2.0) Calcium 8.4 (8.4-10.2) mg/dL Total Bilirubin 0.30 (0.2-1.3) mg/dL AST 23 (17-59) U/L ALT 20 (0-50) U/L Alkaline Phosphatase 86 (38-126) U/L Ammonia (9-30) umol/L Troponin I (0.000-0.034) ng/mL NT-Pro-B Natriuret Pep 205 (<300) pg/mL Serum Total Protein 6.4 (6.3-8.2) g/dL Albumin 3.6 (3.5-5.0) g/dL Urine Color (Yellow) Urine Appearance (Clear) Urine pH (4.6-8.0) Ur Specific [place] (1.005-1.030) Urine Protein (Negative) Urine Glucose (UA) (Negative) mg/dL Urine Ketones (Negative) Urine Blood (Negative) Urine Nitrite (Negative) Urine Bilirubin (Negative) Urine Urobilinogen (0.2) mg/dL Ur Leukocyte Esterase (Negative) U Hyaline Cast (Auto) (0-2) /LPF Urine Microscopic RBC (0-5) /HPF Urine Microscopic WBC (0-5) /HPF Ur Epithelial Cells (None Seen) /HPF Urine Bacteria (None Seen) /HPF Urine Culture Reflexed (NO) Monoscreen (NEGATIVE) Influenza Type A Ag (NEGATIVE) Influenza Type B Ag (NEGATIVE) RSV (PCR) (NEGATIVE) SARS-CoV-2 (PCR) (NEGATIVE) Group A Strep Antibody (NEGATIVE) 08/24/23 08/24/23 08/24/23 Range/Units 09:45 09:45 09:45 WBC (4.0-10.5) x10^3/uL RBC (4.1-5.6) x10^6/uL Hgb (12.5-18.0) g/dL Hct (42-50) % MCV (78-100) fL MCH (26-32) pg MCHC (32-36) g/dL RDW (11.5-14.0) % Plt Count (150-450) x10^3/uL MPV (7.5-11.0) fL Gran % (36.0-66.0) % Immature Gran % (Auto) (0.00-0.4) % Nucleat RBC Rel Count (0.00-0.1) % Eos # (Auto) (0-0.5) x10^3/uL Immature Gran # (Auto) (0.00-0.03) x10^3u/L Absolute Lymphs (auto) (1.0-4.6) x10^3/uL Absolute Monos (auto) (0.0-1.3) x10^3/uL Absolute Nucleated RBC (0.00-0.01) x10^3u/L Lymphocytes % (24.0-44.0) % Monocytes % (0.0-12.0) % Eosinophils % (0.00-5.0) % Basophils % (0.0-0.4) % Absolute Granulocytes (1.4-6.9) x10^3/uL Basophils # (0-0.4) x10^3/uL PT 11.4 (9.4-12.5) SECONDS INR 1.05 (0.8-3.0) Sodium (135-145) mmol/L Potassium (3.5-5.1) mmol/L Chloride (98-107) mmol/L Carbon Dioxide (22-30) mmol/L Anion Gap (5-15) MEQ/L BUN (9-20) mg/dL Creatinine (0.66-1.25) mg/dL Estimated GFR ML/MIN Glucose (74-106) mg/dL POC Glucometer (74 to 106) mg/dL Lactic Acid (0.4-2.0) Calcium (8.4-10.2) mg/dL Total Bilirubin (0.2-1.3) mg/dL AST (17-59) U/L ALT (0-50) U/L Alkaline Phosphatase (38-126) U/L Ammonia 9 (9-30) umol/L Troponin I < 0.012 (0.000-0.034) ng/mL NT-Pro-B Natriuret Pep (<300) pg/mL Serum Total Protein (6.3-8.2) g/dL Albumin (3.5-5.0) g/dL Urine Color (Yellow) Urine Appearance (Clear) Urine pH (4.6-8.0) Ur Specific [place] (1.005-1.030) Urine Protein (Negative) Urine Glucose (UA) (Negative) mg/dL Urine Ketones (Negative) Urine Blood (Negative) Urine Nitrite (Negative) Urine Bilirubin (Negative) Urine Urobilinogen (0.2) mg/dL Ur Leukocyte Esterase (Negative) U Hyaline Cast (Auto) (0-2) /LPF Urine Microscopic RBC (0-5) /HPF Urine Microscopic WBC (0-5) /HPF Ur Epithelial Cells (None Seen) /HPF Urine Bacteria (None Seen) /HPF Urine Culture Reflexed (NO) Monoscreen (NEGATIVE) Influenza Type A Ag (NEGATIVE) Influenza Type B Ag (NEGATIVE) RSV (PCR) (NEGATIVE) SARS-CoV-2 (PCR) (NEGATIVE) Group A Strep Antibody (NEGATIVE) 08/24/23 08/24/2324 Range/Units 09:45 10:08 10:08 WBC (4.0-10.5) x10^3/uL RBC (4.1-5.6) x10^6/uL Hgb (12.5-18.0) g/dL Hct (42-50) % MCV (78-100) fL MCH (26-32) pg MCHC (32-36) g/dL RDW (11.5-14.0) % Plt Count (150-450) x10^3/uL MPV (7.5-11.0) fL Gran % (36.0-66.0) % Immature Gran % (Auto) (0.00-0.4) % Nucleat RBC Rel Count (0.00-0.1) % Eos # (Auto) (0-0.5) x10^3/uL Immature Gran # (Auto) (0.00-0.03) x10^3u/L Absolute Lymphs (auto) (1.0-4.6) x10^3/uL Absolute Monos (auto) (0.0-1.3) x10^3/uL Absolute Nucleated RBC (0.00-0.01) x10^3u/L Lymphocytes % (24.0-44.0) % Monocytes % (0.0-12.0) % Eosinophils % (0.00-5.0) % Basophils % (0.0-0.4) % Absolute Granulocytes (1.4-6.9) x10^3/uL Basophils # (0-0.4) x10^3/uL PT (9.4-12.5) SECONDS INR (0.8-3.0) Sodium (135-145) mmol/L Potassium (3.5-5.1) mmol/L Chloride (98-107) mmol/L Carbon Dioxide (22-30) mmol/L Anion Gap (5-15) MEQ/L BUN (9-20) mg/dL Creatinine (0.66-1.25) mg/dL Estimated GFR ML/MIN Glucose (74-106) mg/dL POC Glucometer (74 to 106) mg/dL Lactic Acid (0.4-2.0) Calcium (8.4-10.2) mg/dL Total Bilirubin (0.2-1.3) mg/dL AST (17-59) U/L ALT (0-50) U/L Alkaline Phosphatase (38-126) U/L Ammonia (9-30) umol/L Troponin I (0.000-0.034) ng/mL NT-Pro-B Natriuret Pep (<300) pg/mL Serum Total Protein (6.3-8.2) g/dL Albumin (3.5-5.0) g/dL Urine Color (Yellow) Urine Appearance (Clear) Urine pH (4.6-8.0) Ur Specific [place] (1.005-1.030) Urine Protein (Negative) Urine Glucose (UA) (Negative) mg/dL Urine Ketones (Negative) Urine Blood (Negative) Urine Nitrite (Negative) Urine Bilirubin (Negative) Urine Urobilinogen (0.2) mg/dL Ur Leukocyte Esterase (Negative) U Hyaline Cast (Auto) (0-2) /LPF Urine Microscopic RBC (0-5) /HPF Urine Microscopic WBC (0-5) /HPF Ur Epithelial Cells (None Seen) /HPF Urine Bacteria (None Seen) /HPF Urine Culture Reflexed (NO) Monoscreen NEGATIVE (NEGATIVE) Influenza Type A Ag NEGATIVE (NEGATIVE) Influenza Type B Ag NEGATIVE (NEGATIVE) RSV (PCR) NEGATIVE (NEGATIVE) SARS-CoV-2 (PCR) NEGATIVE (NEGATIVE) Group A Strep Antibody NOT DETECTED (NEGATIVE) 08/24/23 08/24/23 Range/Units 11:28 13:28 WBC (4.0-10.5) x10^3/uL RBC (4.1-5.6) x10^6/uL Hgb (12.5-18.0) g/dL Hct (42-50) % MCV (78-100) fL MCH (26-32) pg MCHC (32-36) g/dL RDW (11.5-14.0) % Plt Count (150-450) x10^3/uL MPV (7.5-11.0) fL Gran % (36.0-66.0) % Immature Gran % (Auto) (0.00-0.4) % Nucleat RBC Rel Count (0.00-0.1) % Eos # (Auto) (0-0.5) x10^3/uL Immature Gran # (Auto) (0.00-0.03) x10^3u/L Absolute Lymphs (auto) (1.0-4.6) x10^3/uL Absolute Monos (auto) (0.0-1.3) x10^3/uL Absolute Nucleated RBC (0.00-0.01) x10^3u/L Lymphocytes % (24.0-44.0) % Monocytes % (0.0-12.0) % Eosinophils % (0.00-5.0) % Basophils % (0.0-0.4) % Absolute Granulocytes (1.4-6.9) x10^3/uL Basophils # (0-0.4) x10^3/uL PT (9.4-12.5) SECONDS INR (0.8-3.0) Sodium (135-145) mmol/L Potassium (3.5-5.1) mmol/L Chloride (98-107) mmol/L Carbon Dioxide (22-30) mmol/L Anion Gap (5-15) MEQ/L BUN (9-20) mg/dL Creatinine (0.66-1.25) mg/dL Estimated GFR ML/MIN Glucose (74-106) mg/dL POC Glucometer 137 H (74 to 106) mg/dL Lactic Acid (0.4-2.0) Calcium (8.4-10.2) mg/dL Total Bilirubin (0.2-1.3) mg/dL AST (17-59) U/L ALT (0-50) U/L Alkaline Phosphatase (38-126) U/L Ammonia (9-30) umol/L Troponin I (0.000-0.034) ng/mL NT-Pro-B Natriuret Pep (<300) pg/mL Serum Total Protein (6.3-8.2) g/dL Albumin (3.5-5.0) g/dL Urine Color Yellow (Yellow) Urine Appearance Clear (Clear) Urine pH 7.5 (4.6-8.0) Ur Specific [place] 1.020 (1.005-1.030) Urine Protein Negative (Negative) Urine Glucose (UA) Negative (Negative) mg/dL Urine Ketones Negative (Negative) Urine Blood Negative (Negative) Urine Nitrite Negative (Negative) Urine Bilirubin Negative (Negative) Urine Urobilinogen 0.2 (0.2) mg/dL Ur Leukocyte Esterase Negative (Negative) U Hyaline Cast (Auto) NONE SEEN (0-2) /LPF Urine Microscopic RBC 0-2 (0-5) /HPF Urine Microscopic WBC 0-2 (0-5) /HPF Ur Epithelial Cells None Seen (None Seen) /HPF Urine Bacteria None Seen (None Seen) /HPF Urine Culture Reflexed NO (NO) Monoscreen (NEGATIVE) Influenza Type A Ag (NEGATIVE) Influenza Type B Ag (NEGATIVE) RSV (PCR) (NEGATIVE) SARS-CoV-2 (PCR) (NEGATIVE) Group A Strep Antibody (NEGATIVE) - Radiology Impressions Radiology Exams & Impressions: Radiology Procedures Category Date Time Status CHEST 1 VIEW (PORTABLE) Stat Exams 08/24/23 09:14 Completed HEAD WITHOUT CONTRAST [CT] Stat Exams 08/24/23 09:15 Completed - Other Procedures and Tests Respiratory Therapy 08/24/23 13:20 EKG REPEAT IN AM Respiratory Therapy Consult ONCE Assessment/Plan (1) Acute respiratory failure with hypoxia Current Visit: Yes Status: Acute Assessment & Plan: -2/2 to pneumonia/copd exacerbation - continue ceftriaxone/azithromycin -CXR reviewed demonstrating right and left lung infiltrates with small bibasilar effusions. -RT consult -4L at baseline -Supplemental oxygen with goal spo2 88-92% -ABG PRN if significant hypoxia or lethargy Code(s): J96.01 - ACUTE RESPIRATORY FAILURE WITH HYPOXIA (2) Pneumonia Current Visit: Yes Status: Acute Assessment & Plan: -Supplemental oxygen with goal spo2 88-92% -ABG PRN if significant hypoxia or lethargy -LA - WNL -PCT, sputum culture, blood cultures pending -Resp viral panel negative -Ceftriaxone/azithromycin given in ED, will continue -Tylenol for fever Code(s): J18.9 - PNEUMONIA, UNSPECIFIED ORGANISM (3) COPD exacerbation Current Visit: Yes Status: Acute Assessment & Plan: -Supplemental oxygen with goal spo2 88-92% -ABG/BIPAP PRN -DuoNebs/INH -Solumedrol 40mg Q12H -titrate per clinical response -Consider CT/ pulm consult if no improvement Code(s): J44.1 - CHRONIC OBSTRUCTIVE PULMONARY DISEASE W (ACUTE) EXACERBATION (4) Altered mental status Current Visit: Yes Status: Acute Assessment & Plan: -Most likely secondary to pneumonia -UA negative/LA negative/blood glucose level stable/ ammonia level WNL -CXR showing pneumonia -TSH, B12, fol, coritisol-Blood cultures pending -CT head negative for acute findings -Consider MRI/neuro consult if no improvement /suspicion of central cause -minimize narcotics -Orientation protocol Code(s): R41.82 - ALTERED MENTAL STATUS, UNSPECIFIED (5) Coronary artery disease Current Visit: No Status: Chronic Assessment & Plan: -Noted, continue home medications Code(s): I25.10 - ATHSCL HEART DISEASE OF [place] CORONARY ARTERY W/O ANG PCTRS (6) Diabetes mellitus Current Visit: No Status: Chronic Assessment & Plan: -ADA diet -A1c -SSI/glargine, meal time insulin VTE: lovenox PPI: Protonix Dispo: 1-2 days Code(s): E11.9 - TYPE 2 DIABETES MELLITUS WITHOUT COMPLICATIONS
[2023-08-24] MEDS ORDERED: Robitussin-Dm Syrup PO PRN (14:42)
[2023-08-24] MEDS ORDERED: Nitrostat 0.4 MG Tablet SL PRN (14:45)
[2023-08-24 15:18] LABS: Hematocrit 35.7 % (42-50); Hemoglobin 11.2 g/dL (12.5-18.0); Mean Cell Volume 92.5 fL (78-100); Mean Corpuscular Hgb Concent. 31.4 g/dL (32-36); Platelet Count 186 x10^3/uL (150-450); Red Blood Count 3.86 x10^6/uL (4.1-5.6); Red Cell Distribution Width 13.5 % (11.5-14.0); White Blood Count 11.8 x10^3/uL (4.0-10.5)
[2023-08-24] MEDS ORDERED: Tums EX 750 MG PO PRN (15:18)
[2023-08-24 15:34] LABS: Folate (Folic Acid) > 20.0 ng/mL (2.76 - >20); PROCALCITONIN 0.379 ng/mL (0.030-0.080); TSH, 3RD Generation 0.527 mIU/L (0.47-4.68); Vitamin B12 766 pg/mL (239-931)
[2023-08-24 15:35] LABS: ANION GAP 13.4 MEQ/L (5-15); Calcium 8.6 mg/dL (8.4-10.2); Creatinine 1 0.84 mg/dL (0.66-1.25); PREALBUMIN 13.47 mg/dL (17.6-36.0); Potassium 4.3 mmol/L (3.5-5.1)
[2023-08-24] MEDS: Protonix 40MG Tablet PO SCH (15:37)
[2023-08-24] MEDS: ENOXAPARIN SODIUM SQ SCH (15:37)
[2023-08-24] MEDS: Ms Contin 15 MG PO SCH (15:38)
[2023-08-24] MEDS: PIPERACILLIN/TAZOBACTAM 3.375 GM in Sodium Chloride 100ML MINI-BAG PLUS 100 ML IV SCH (17:12)
[2023-08-24] MEDS: Artificial Tears 15 ML OP SCH (17:14)
[2023-08-24] MEDS: Reglan 10 MG PO SCH (17:14)
[2023-08-24] MEDS: Carafate 1 GM PO SCH (17:15)
[2023-08-24] MEDS: HUMALOG SQ SCH (17:16)
[2023-08-24] MEDS: Neurontin PO SCH (17:16)
[2023-08-24] MEDS: Zithromax 500 MG/ 250 ML NaCl Premix 500 MG/250 ML IVPB IV SCH (17:45)
[2023-08-24] MEDS: Advair Hfa 115/21 Common canister IH SCH (17:45)
[2023-08-24] MEDS: PROVENTIL 2.5 MG/3 ML NEB IH SCH (17:46)
[2023-08-24] MEDS: MORPHINE SULFATE ER PO SCH (17:47)
[2023-08-24] MEDS: Ranexa 500 MG PO SCH (21:34)
[2023-08-24] MEDS: Lantus Insulin SQ SCH (21:34)
[2023-08-24] MEDS: TOPIRAMATE PO SCH (21:35)
[2023-08-24] MEDS: Singulair 10 MG PO SCH (21:35)
[2023-08-24] MEDS: Inderal PO SCH (21:35)
[2023-08-24] MEDS: Xalatan OP SCH (21:38)
[2023-08-24] MEDS: LIORESAL 10 MG PO SCH (21:39)
[2023-08-24] MEDS: Pepcid 20 MG PO SCH (21:39)
[2023-08-24] MEDS: ZOCOR 20MG PO SCH (21:39)
[2023-08-24] MEDS: solu-MEDROL 20 MG, Sterile H2O 10 ml 1 ML IV SCH (21:42)
[2023-08-24] MEDS ORDERED: NON-FORMULARY ITEM (Insulin Detemir [Levemir] 100 UNIT/ML Vial) SQ SCH (22:00)
[2023-08-24] MEDS ORDERED: NON-FORMULARY ITEM (Insulin Detemir [Levemir] 40 UNIT) SQ SCH (22:00)
[2023-08-24] MEDS ORDERED: solu-MEDROL 40 MG, Sterile H2O 10 ml 1 ML IV SCH (22:00)
--- NOTE | 2023-08-25 05:10 | PCM.NOTE ---
Date and Time: 08/25/23 0505 Subjective Assessment: HPI: is a 63 year old male pmhx of COPD (4L baseline oxygen), IDDM, HTN, DDD, OA, Depression, HLD, GERD, CAD, [place], emphysema, and peripheral neuropathy who presented to ED 08/24/23 via EMS from his nursing facility with complaints of fever TMax 101, increased shortness of breath, productive cough with green sputum, and reported confusion. Admitted for acute respiratory failure with hypoxia secondary to pneumonia/COPD exacerbation. Plan for treatment with IV abx/ steroids/ supportive care. In ED, patient febrile at 101, hypotensive, with spo2 @ 93% on 4L oxygen. EKG NS with no ST elevations/deviations. CXR demonstrating right and left lung infiltrates with small bibasilar effusions. Head CT with no acute findings. Lab findings remarkable for normocytic anemia with hgb at 11, BNP at 205. Urine and viral panel negative. Patient given ceftriaxone/solu-medrol/proventil in ED. Started on Zosyn due to concern for aspiration and risk factors of COPD and residing in a nursing facility. 08/25/23: Met with patient bedside. A&O x 4 on exam. No overnight events or further episodes of confusion noted. Endorses improvement in shortness of breath. Does continue to have cough, states sputum was green this morning. On baseline oxygen of 4L. Plan to continue treatment with abx/steroids, most likely will discharge tomorrow. - Review of Systems Constitutional: No Symptoms Eyes: No Symptoms Ears, Nose, & Throat: No Symptoms Respiratory: Cough, Short Of Breath Cardiac: No Symptoms Abdominal/Gastrointestinal: No Symptoms Genitourinary Symptoms: No Symptoms Musculoskeletal: Back Pain (chronic) Skin: No Symptoms Neurological: No Symptoms Psychological: No Symptoms Endocrine: No Symptoms Hematologic/Lymphatic: No Symptoms Immunological/Allergic: No Symptoms Objective Exam General Appearance: no apparent distress Neurologic Exam: alert, oriented x 3, cooperative Skin Exam: pale Wound Assessment: Skin/Wound Assessment Wound/Incision Assessment Start: 08/24/23 1 4:26 Text: Status: Active Freq: Q6H Protocol: Document 08/25/23 02:00 MP (Rec: 08/25/23 02:31 MP [id number]) Wound/Incision Assessment Right Posterior Buttock Wound Assessment Shift Assessment Wound Stage Stage I Dressing Status Dry & Intact Drainage Amount None Comment PT HAS REDDENED BUTTOCK, DOES NOT JACKIE, NOT OPEN AREAS, WILL APPLY BARRIER CREAM Wound Photo Photo Taken No Eye Exam: PERRL Ears, Nose, Throat Exam: normal ENT inspection Neck Exam: normal inspection Respiratory Exam: diminished breath sounds Cardiovascular Exam: regular rate/rhythm, normal heart sounds Gastrointestinal/Abdomen Exam: soft, normal bowel sounds Extremity Exam: normal inspection Back Exam: normal inspection Male Genitalia Exam: deferred Rectal Exam: deferred OBJECTIVE DATA Vital Signs: Vital Signs - 24 hr Temp Pulse Resp BP BP Pulse Ox 08/25/23 04:00 97.1 F 38 L 20 104/59 97 08/25/23 00:00 98.6 F 81 19 108/57 97 08/24/23 19:50 97.8 F 96 H 19 114/57 98 08/24/23 17:50 80 16 97 08/24/23 16:22 98.0 F 77 18 124/59 94 L 08/24/23 13:55 97 08/24/23 13:50 80 22 97 08/24/23 13:32 98.3 F 83 17 125/56 97 08/24/23 13:20 97 08/24/23 12:45 83 15 103/76 97 08/24/23 12:30 89 23 103/63 97 08/24/23 12:15 81 16 111/60 100 08/24/23 12:00 84 15 88/60 98 08/24/23 11:45 99.4 F 87 14 93/56 96 08/24/23 11:31 88 13 122/59 97 08/24/23 11:18 93 H 22 88/55 97 08/24/23 11:16 89 17 76/46 96 08/24/23 11:08 87 10 L 84/48 97 08/24/23 10:00 93 H 14 95/59 08/24/23 09:30 91 H 13 99/60 08/24/23 09:26 95 H 20 92 L 08/24/23 09:06 101 F 95 H 18 100/64 93 L Pain Assessment - Last Documented Pain Intensity 8 Pain Scale Used 0-10 Pain Scale Intake and Output: Intake & Output 08/22/23 08/23/23 08/24/23 08/25/23 11:59 11:59 11:59 11:59 Intake Total 720 Output Total 650 Balance 70 Weight 108.7 kg 109 kg Lab Results: Lab Results-Last 24 Hours 08/24/23 08/24/23 08/24/23 Range/Units 09:30 09:30 09:45 WBC 9.3 (4.0-10.5) x10^3/uL RBC 3.77 L (4.1-5.6) x10^6/uL Hgb 11.0 L (12.5-18.0) g/dL Hct 35.0 L (42-50) % MCV 92.8 (78-100) fL MCH 29.2 (26-32) pg MCHC 31.4 L (32-36) g/dL RDW 13.3 (11.5-14.0) % Plt Count 171 (150-450) x10^3/uL MPV 9.0 (7.5-11.0) fL Gran % 76.2 H (36.0-66.0) % Immature Gran % (Auto) 0.4 (0.00-0.4) % Nucleat RBC Rel Count 0.0 (0.00-0.1) % Eos # (Auto) 0.06 (0-0.5) x10^3/uL Immature Gran # (Auto) 0.04 H (0.00-0.03) x10^3u/L Absolute Lymphs (auto) 1.28 (1.0-4.6) x10^3/uL Absolute Monos (auto) 0.80 (0.0-1.3) x10^3/uL Absolute Nucleated RBC 0.00 (0.00-0.01) x10^3u/L Lymphocytes % 13.7 L (24.0-44.0) % Monocytes % 8.6 (0.0-12.0) % Eosinophils % 0.6 (0.00-5.0) % Basophils % 0.5 (0.0-0.4) % Absolute Granulocytes 7.09 H (1.4-6.9) x10^3/uL Basophils # 0.05 (0-0.4) x10^3/uL PT (9.4-12.5) SECONDS INR (0.8-3.0) Sodium (135-145) mmol/L Potassium (3.5-5.1) mmol/L Chloride (98-107) mmol/L Carbon Dioxide (22-30) mmol/L Anion Gap (5-15) MEQ/L BUN (9-20) mg/dL Creatinine (0.66-1.25) mg/dL Estimated GFR ML/MIN Glucose (74-106) mg/dL POC Glucometer (74 to 106) mg/dL Hemoglobin A1c (4.5-6.0) % Lactic Acid 1.3 (0.4-2.0) Calcium (8.4-10.2) mg/dL Total Bilirubin (0.2-1.3) mg/dL AST (17-59) U/L ALT (0-50) U/L Alkaline Phosphatase (38-126) U/L Ammonia (9-30) umol/L Troponin I (0.000-0.034) ng/mL NT-Pro-B Natriuret Pep (<300) pg/mL Serum Total Protein (6.3-8.2) g/dL Albumin (3.5-5.0) g/dL Prealbumin (17.6-36.0) mg/dL Vitamin B12 766 (239-931) pg/mL Folic Acid > 20.0 (2.76 - >20) ng/mL Procalcitonin 0.379 H (0.030-0.080) ng/mL TSH 3rd Generation 0.527 (0.47-4.68) mIU/L Urine Color (Yellow) Urine Appearance (Clear) Urine pH (4.6-8.0) Ur Specific [place] (1.005-1.030) Urine Protein (Negative) Urine Glucose (UA) (Negative) mg/dL Urine Ketones (Negative) Urine Blood (Negative) Urine Nitrite (Negative) Urine Bilirubin (Negative) Urine Urobilinogen (0.2) mg/dL Ur Leukocyte Esterase (Negative) U Hyaline Cast (Auto) (0-2) /LPF Urine Microscopic RBC (0-5) /HPF Urine Microscopic WBC (0-5) /HPF Ur Epithelial Cells (None Seen) /HPF Urine Bacteria (None Seen) /HPF Urine Culture Reflexed (NO) Monoscreen (NEGATIVE) Influenza Type A Ag (NEGATIVE) Influenza Type B Ag (NEGATIVE) RSV (PCR) (NEGATIVE) SARS-CoV-2 (PCR) (NEGATIVE) Group A Strep Antibody (NEGATIVE) 08/24/23 08/24/23 08/24/23 Range/Units 09:45 09:45 09:45 WBC (4.0-10.5) x10^3/uL RBC (4.1-5.6) x10^6/uL Hgb (12.5-18.0) g/dL Hct (42-50) % MCV (78-100) fL MCH (26-32) pg MCHC (32-36) g/dL RDW (11.5-14.0) % Plt Count (150-450) x10^3/uL MPV (7.5-11.0) fL Gran % (36.0-66.0) % Immature Gran % (Auto) (0.00-0.4) % Nucleat RBC Rel Count (0.00-0.1) % Eos # (Auto) (0-0.5) x10^3/uL Immature Gran # (Auto) (0.00-0.03) x10^3u/L Absolute Lymphs (auto) (1.0-4.6) x10^3/uL Absolute Monos (auto) (0.0-1.3) x10^3/uL Absolute Nucleated RBC (0.00-0.01) x10^3u/L Lymphocytes % (24.0-44.0) % Monocytes % (0.0-12.0) % Eosinophils % (0.00-5.0) % Basophils % (0.0-0.4) % Absolute Granulocytes (1.4-6.9) x10^3/uL Basophils # (0-0.4) x10^3/uL PT 11.4 (9.4-12.5) SECONDS INR 1.05 (0.8-3.0) Sodium 138 (135-145) mmol/L Potassium 4.0 (3.5-5.1) mmol/L Chloride 106 (98-107) mmol/L Carbon Dioxide 24 (22-30) mmol/L Anion Gap 12.6 (5-15) MEQ/L BUN 17 (9-20) mg/dL Creatinine 0.93 (0.66-1.25) mg/dL Estimated GFR 92.3 ML/MIN Glucose 109 H (74-106) mg/dL POC Glucometer (74 to 106) mg/dL Hemoglobin A1c (4.5-6.0) % Lactic Acid (0.4-2.0) Calcium 8.4 (8.4-10.2) mg/dL Total Bilirubin 0.30 (0.2-1.3) mg/dL AST 23 (17-59) U/L ALT 20 (0-50) U/L Alkaline Phosphatase 86 (38-126) U/L Ammonia (9-30) umol/L Troponin I < 0.012 (0.000-0.034) ng/mL NT-Pro-B Natriuret Pep 205 (<300) pg/mL Serum Total Protein 6.4 (6.3-8.2) g/dL Albumin 3.6 (3.5-5.0) g/dL Prealbumin (17.6-36.0) mg/dL Vitamin B12 (239-931) pg/mL Folic Acid (2.76 - >20) ng/mL Procalcitonin (0.030-0.080) ng/mL TSH 3rd Generation (0.47-4.68) mIU/L Urine Color (Yellow) Urine Appearance (Clear) Urine pH (4.6-8.0) Ur Specific [place] (1.005-1.030) Urine Protein (Negative) Urine Glucose (UA) (Negative) mg/dL Urine Ketones (Negative) Urine Blood (Negative) Urine Nitrite (Negative) Urine Bilirubin (Negative) Urine Urobilinogen (0.2) mg/dL Ur Leukocyte Esterase (Negative) U Hyaline Cast (Auto) (0-2) /LPF Urine Microscopic RBC (0-5) /HPF Urine Microscopic WBC (0-5) /HPF Ur Epithelial Cells (None Seen) /HPF Urine Bacteria (None Seen) /HPF Urine Culture Reflexed (NO) Monoscreen (NEGATIVE) Influenza Type A Ag (NEGATIVE) Influenza Type B Ag (NEGATIVE) RSV (PCR) (NEGATIVE) SARS-CoV-2 (PCR) (NEGATIVE) Group A Strep Antibody (NEGATIVE) 08/24/23 08/24/23 08/24/23 Range/Units 09:45 09:45 10:08 WBC (4.0-10.5) x10^3/uL RBC (4.1-5.6) x10^6/uL Hgb (12.5-18.0) g/dL Hct (42-50) % MCV (78-100) fL MCH (26-32) pg MCHC (32-36) g/dL RDW (11.5-14.0) % Plt Count (150-450) x10^3/uL MPV (7.5-11.0) fL Gran % (36.0-66.0) % Immature Gran % (Auto) (0.00-0.4) % Nucleat RBC Rel Count (0.00-0.1) % Eos # (Auto) (0-0.5) x10^3/uL Immature Gran # (Auto) (0.00-0.03) x10^3u/L Absolute Lymphs (auto) (1.0-4.6) x10^3/uL Absolute Monos (auto) (0.0-1.3) x10^3/uL Absolute Nucleated RBC (0.00-0.01) x10^3u/L Lymphocytes % (24.0-44.0) % Monocytes % (0.0-12.0) % Eosinophils % (0.00-5.0) % Basophils % (0.0-0.4) % Absolute Granulocytes (1.4-6.9) x10^3/uL Basophils # (0-0.4) x10^3/uL PT (9.4-12.5) SECONDS INR (0.8-3.0) Sodium (135-145) mmol/L Potassium (3.5-5.1) mmol/L Chloride (98-107) mmol/L Carbon Dioxide (22-30) mmol/L Anion Gap (5-15) MEQ/L BUN (9-20) mg/dL Creatinine (0.66-1.25) mg/dL Estimated GFR ML/MIN Glucose (74-106) mg/dL POC Glucometer (74 to 106) mg/dL Hemoglobin A1c (4.5-6.0) % Lactic Acid (0.4-2.0) Calcium (8.4-10.2) mg/dL Total Bilirubin (0.2-1.3) mg/dL AST (17-59) U/L ALT (0-50) U/L Alkaline Phosphatase (38-126) U/L Ammonia 9 (9-30) umol/L Troponin I (0.000-0.034) ng/mL NT-Pro-B Natriuret Pep (<300) pg/mL Serum Total Protein (6.3-8.2) g/dL Albumin (3.5-5.0) g/dL Prealbumin (17.6-36.0) mg/dL Vitamin B12 (239-931) pg/mL Folic Acid (2.76 - >20) ng/mL Procalcitonin (0.030-0.080) ng/mL TSH 3rd Generation (0.47-4.68) mIU/L Urine Color (Yellow) Urine Appearance (Clear) Urine pH (4.6-8.0) Ur Specific [place] (1.005-1.030) Urine Protein (Negative) Urine Glucose (UA) (Negative) mg/dL Urine Ketones (Negative) Urine Blood (Negative) Urine Nitrite (Negative) Urine Bilirubin (Negative) Urine Urobilinogen (0.2) mg/dL Ur Leukocyte Esterase (Negative) U Hyaline Cast (Auto) (0-2) /LPF Urine Microscopic RBC (0-5) /HPF Urine Microscopic WBC (0-5) /HPF Ur Epithelial Cells (None Seen) /HPF Urine Bacteria (None Seen) /HPF Urine Culture Reflexed (NO) Monoscreen NEGATIVE (NEGATIVE) Influenza Type A Ag (NEGATIVE) Influenza Type B Ag (NEGATIVE) RSV (PCR) (NEGATIVE) SARS-CoV-2 (PCR) (NEGATIVE) Group A Strep Antibody NOT DETECTED (NEGATIVE) 08/24/23 08/24/23 08/24/23 Range/Units 10:08 11:28 13:20 WBC (4.0-10.5) x10^3/uL RBC (4.1-5.6) x10^6/uL Hgb (12.5-18.0) g/dL Hct (42-50) % MCV (78-100) fL MCH (26-32) pg MCHC (32-36) g/dL RDW (11.5-14.0) % Plt Count (150-450) x10^3/uL MPV (7.5-11.0) fL Gran % (36.0-66.0) % Immature Gran % (Auto) (0.00-0.4) % Nucleat RBC Rel Count (0.00-0.1) % Eos # (Auto) (0-0.5) x10^3/uL Immature Gran # (Auto) (0.00-0.03) x10^3u/L Absolute Lymphs (auto) (1.0-4.6) x10^3/uL Absolute Monos (auto) (0.0-1.3) x10^3/uL Absolute Nucleated RBC (0.00-0.01) x10^3u/L Lymphocytes % (24.0-44.0) % Monocytes % (0.0-12.0) % Eosinophils % (0.00-5.0) % Basophils % (0.0-0.4) % Absolute Granulocytes (1.4-6.9) x10^3/uL Basophils # (0-0.4) x10^3/uL PT (9.4-12.5) SECONDS INR (0.8-3.0) Sodium (135-145) mmol/L Potassium (3.5-5.1) mmol/L Chloride (98-107) mmol/L Carbon Dioxide (22-30) mmol/L Anion Gap (5-15) MEQ/L BUN (9-20) mg/dL Creatinine (0.66-1.25) mg/dL Estimated GFR ML/MIN Glucose (74-106) mg/dL POC Glucometer (74 to 106) mg/dL Hemoglobin A1c (4.5-6.0) % Lactic Acid (0.4-2.0) Calcium (8.4-10.2) mg/dL Total Bilirubin (0.2-1.3) mg/dL AST (17-59) U/L ALT (0-50) U/L Alkaline Phosphatase (38-126) U/L Ammonia (9-30) umol/L Troponin I < 0.012 (0.000-0.034) ng/mL NT-Pro-B Natriuret Pep (<300) pg/mL Serum Total Protein (6.3-8.2) g/dL Albumin (3.5-5.0) g/dL Prealbumin (17.6-36.0) mg/dL Vitamin B12 (239-931) pg/mL Folic Acid (2.76 - >20) ng/mL Procalcitonin (0.030-0.080) ng/mL TSH 3rd Generation (0.47-4.68) mIU/L Urine Color Yellow (Yellow) Urine Appearance Clear (Clear) Urine pH 7.5 (4.6-8.0) Ur Specific [place] 1.020 (1.005-1.030) Urine Protein Negative (Negative) Urine Glucose (UA) Negative (Negative) mg/dL Urine Ketones Negative (Negative) Urine Blood Negative (Negative) Urine Nitrite Negative (Negative) Urine Bilirubin Negative (Negative) Urine Urobilinogen 0.2 (0.2) mg/dL Ur Leukocyte Esterase Negative (Negative) U Hyaline Cast (Auto) NONE SEEN (0-2) /LPF Urine Microscopic RBC 0-2 (0-5) /HPF Urine Microscopic WBC 0-2 (0-5) /HPF Ur Epithelial Cells None Seen (None Seen) /HPF Urine Bacteria None Seen (None Seen) /HPF Urine Culture Reflexed NO (NO) Monoscreen (NEGATIVE) Influenza Type A Ag NEGATIVE (NEGATIVE) Influenza Type B Ag NEGATIVE (NEGATIVE) RSV (PCR) NEGATIVE (NEGATIVE) SARS-CoV-2 (PCR) NEGATIVE (NEGATIVE) Group A Strep Antibody (NEGATIVE) 08/24/23 08/24/23 08/24/23 Range/Units 13:28 15:00 15:00 WBC 11.8 H (4.0-10.5) x10^3/uL RBC 3.86 L (4.1-5.6) x10^6/uL Hgb 11.2 L (12.5-18.0) g/dL Hct 35.7 L (42-50) % MCV 92.5 (78-100) fL MCH 29.0 (26-32) pg MCHC 31.4 L (32-36) g/dL RDW 13.5 (11.5-14.0) % Plt Count 186 (150-450) x10^3/uL MPV 9.0 (7.5-11.0) fL Gran % (36.0-66.0) % Immature Gran % (Auto) (0.00-0.4) % Nucleat RBC Rel Count (0.00-0.1) % Eos # (Auto) (0-0.5) x10^3/uL Immature Gran # (Auto) (0.00-0.03) x10^3u/L Absolute Lymphs (auto) (1.0-4.6) x10^3/uL Absolute Monos (auto) (0.0-1.3) x10^3/uL Absolute Nucleated RBC (0.00-0.01) x10^3u/L Lymphocytes % (24.0-44.0) % Monocytes % (0.0-12.0) % Eosinophils % (0.00-5.0) % Basophils % (0.0-0.4) % Absolute Granulocytes (1.4-6.9) x10^3/uL Basophils # (0-0.4) x10^3/uL PT (9.4-12.5) SECONDS INR (0.8-3.0) Sodium (135-145) mmol/L Potassium (3.5-5.1) mmol/L Chloride (98-107) mmol/L Carbon Dioxide (22-30) mmol/L Anion Gap (5-15) MEQ/L BUN (9-20) mg/dL Creatinine (0.66-1.25) mg/dL Estimated GFR ML/MIN Glucose (74-106) mg/dL POC Glucometer 137 H (74 to 106) mg/dL Hemoglobin A1c 7.25 H (4.5-6.0) % Lactic Acid (0.4-2.0) Calcium (8.4-10.2) mg/dL Total Bilirubin (0.2-1.3) mg/dL AST (17-59) U/L ALT (0-50) U/L Alkaline Phosphatase (38-126) U/L Ammonia (9-30) umol/L Troponin I (0.000-0.034) ng/mL NT-Pro-B Natriuret Pep (<300) pg/mL Serum Total Protein (6.3-8.2) g/dL Albumin (3.5-5.0) g/dL Prealbumin (17.6-36.0) mg/dL Vitamin B12 (239-931) pg/mL Folic Acid (2.76 - >20) ng/mL Procalcitonin (0.030-0.080) ng/mL TSH 3rd Generation (0.47-4.68) mIU/L Urine Color (Yellow) Urine Appearance (Clear) Urine pH (4.6-8.0) Ur Specific [place] (1.005-1.030) Urine Protein (Negative) Urine Glucose (UA) (Negative) mg/dL Urine Ketones (Negative) Urine Blood (Negative) Urine Nitrite (Negative) Urine Bilirubin (Negative) Urine Urobilinogen (0.2) mg/dL Ur Leukocyte Esterase (Negative) U Hyaline Cast (Auto) (0-2) /LPF Urine Microscopic RBC (0-5) /HPF Urine Microscopic WBC (0-5) /HPF Ur Epithelial Cells (None Seen) /HPF Urine Bacteria (None Seen) /HPF Urine Culture Reflexed (NO) Monoscreen (NEGATIVE) Influenza Type A Ag (NEGATIVE) Influenza Type B Ag (NEGATIVE) RSV (PCR) (NEGATIVE) SARS-CoV-2 (PCR) (NEGATIVE) Group A Strep Antibody (NEGATIVE) 08/24/23 08/24/23 08/24/23 Range/Units 15:00 16:08 17:20 WBC (4.0-10.5) x10^3/uL RBC (4.1-5.6) x10^6/uL Hgb (12.5-18.0) g/dL Hct (42-50) % MCV (78-100) fL MCH (26-32) pg MCHC (32-36) g/dL RDW (11.5-14.0) % Plt Count (150-450) x10^3/uL MPV (7.5-11.0) fL Gran % (36.0-66.0) % Immature Gran % (Auto) (0.00-0.4) % Nucleat RBC Rel Count (0.00-0.1) % Eos # (Auto) (0-0.5) x10^3/uL Immature Gran # (Auto) (0.00-0.03) x10^3u/L Absolute Lymphs (auto) (1.0-4.6) x10^3/uL Absolute Monos (auto) (0.0-1.3) x10^3/uL Absolute Nucleated RBC (0.00-0.01) x10^3u/L Lymphocytes % (24.0-44.0) % Monocytes % (0.0-12.0) % Eosinophils % (0.00-5.0) % Basophils % (0.0-0.4) % Absolute Granulocytes (1.4-6.9) x10^3/uL Basophils # (0-0.4) x10^3/uL PT (9.4-12.5) SECONDS INR (0.8-3.0) Sodium 138 (135-145) mmol/L Potassium 4.3 (3.5-5.1) mmol/L Chloride 105 (98-107) mmol/L Carbon Dioxide 23 (22-30) mmol/L Anion Gap 13.4 (5-15) MEQ/L BUN 18 (9-20) mg/dL Creatinine 0.84 (0.66-1.25) mg/dL Estimated GFR 98.0 ML/MIN Glucose 162 H (74-106) mg/dL POC Glucometer 179 H (74 to 106) mg/dL Hemoglobin A1c (4.5-6.0) % Lactic Acid (0.4-2.0) Calcium 8.6 (8.4-10.2) mg/dL Total Bilirubin (0.2-1.3) mg/dL AST (17-59) U/L ALT (0-50) U/L Alkaline Phosphatase (38-126) U/L Ammonia (9-30) umol/L Troponin I < 0.012 (0.000-0.034) ng/mL NT-Pro-B Natriuret Pep (<300) pg/mL Serum Total Protein (6.3-8.2) g/dL Albumin (3.5-5.0) g/dL Prealbumin 13.47 L (17.6-36.0) mg/dL Vitamin B12 (239-931) pg/mL Folic Acid (2.76 - >20) ng/mL Procalcitonin (0.030-0.080) ng/mL TSH 3rd Generation (0.47-4.68) mIU/L Urine Color (Yellow) Urine Appearance (Clear) Urine pH (4.6-8.0) Ur Specific [place] (1.005-1.030) Urine Protein (Negative) Urine Glucose (UA) (Negative) mg/dL Urine Ketones (Negative) Urine Blood (Negative) Urine Nitrite (Negative) Urine Bilirubin (Negative) Urine Urobilinogen (0.2) mg/dL Ur Leukocyte Esterase (Negative) U Hyaline Cast (Auto) (0-2) /LPF Urine Microscopic RBC (0-5) /HPF Urine Microscopic WBC (0-5) /HPF Ur Epithelial Cells (None Seen) /HPF Urine Bacteria (None Seen) /HPF Urine Culture Reflexed (NO) Monoscreen (NEGATIVE) Influenza Type A Ag (NEGATIVE) Influenza Type B Ag (NEGATIVE) RSV (PCR) (NEGATIVE) SARS-CoV-2 (PCR) (NEGATIVE) Group A Strep Antibody (NEGATIVE) 08/24/23 Range/Units 20:30 WBC (4.0-10.5) x10^3/uL RBC (4.1-5.6) x10^6/uL Hgb (12.5-18.0) g/dL Hct (42-50) % MCV (78-100) fL MCH (26-32) pg MCHC (32-36) g/dL RDW (11.5-14.0) % Plt Count (150-450) x10^3/uL MPV (7.5-11.0) fL Gran % (36.0-66.0) % Immature Gran % (Auto) (0.00-0.4) % Nucleat RBC Rel Count (0.00-0.1) % Eos # (Auto) (0-0.5) x10^3/uL Immature Gran # (Auto) (0.00-0.03) x10^3u/L Absolute Lymphs (auto) (1.0-4.6) x10^3/uL Absolute Monos (auto) (0.0-1.3) x10^3/uL Absolute Nucleated RBC (0.00-0.01) x10^3u/L Lymphocytes % (24.0-44.0) % Monocytes % (0.0-12.0) % Eosinophils % (0.00-5.0) % Basophils % (0.0-0.4) % Absolute Granulocytes (1.4-6.9) x10^3/uL Basophils # (0-0.4) x10^3/uL PT (9.4-12.5) SECONDS INR (0.8-3.0) Sodium (135-145) mmol/L Potassium (3.5-5.1) mmol/L Chloride (98-107) mmol/L Carbon Dioxide (22-30) mmol/L Anion Gap (5-15) MEQ/L BUN (9-20) mg/dL Creatinine (0.66-1.25) mg/dL Estimated GFR ML/MIN Glucose (74-106) mg/dL POC Glucometer 247 H (74 to 106) mg/dL Hemoglobin A1c (4.5-6.0) % Lactic Acid (0.4-2.0) Calcium (8.4-10.2) mg/dL Total Bilirubin (0.2-1.3) mg/dL AST (17-59) U/L ALT (0-50) U/L Alkaline Phosphatase (38-126) U/L Ammonia (9-30) umol/L Troponin I (0.000-0.034) ng/mL NT-Pro-B Natriuret Pep (<300) pg/mL Serum Total Protein (6.3-8.2) g/dL Albumin (3.5-5.0) g/dL Prealbumin (17.6-36.0) mg/dL Vitamin B12 (239-931) pg/mL Folic Acid (2.76 - >20) ng/mL Procalcitonin (0.030-0.080) ng/mL TSH 3rd Generation (0.47-4.68) mIU/L Urine Color (Yellow) Urine Appearance (Clear) Urine pH (4.6-8.0) Ur Specific [place] (1.005-1.030) Urine Protein (Negative) Urine Glucose (UA) (Negative) mg/dL Urine Ketones (Negative) Urine Blood (Negative) Urine Nitrite (Negative) Urine Bilirubin (Negative) Urine Urobilinogen (0.2) mg/dL Ur Leukocyte Esterase (Negative) U Hyaline Cast (Auto) (0-2) /LPF Urine Microscopic RBC (0-5) /HPF Urine Microscopic WBC (0-5) /HPF Ur Epithelial Cells (None Seen) /HPF Urine Bacteria (None Seen) /HPF Urine Culture Reflexed (NO) Monoscreen (NEGATIVE) Influenza Type A Ag (NEGATIVE) Influenza Type B Ag (NEGATIVE) RSV (PCR) (NEGATIVE) SARS-CoV-2 (PCR) (NEGATIVE) Group A Strep Antibody (NEGATIVE) Radiology Exams: Radiology Procedures Category Date Time Status CHEST 1 VIEW (PORTABLE) Stat Exams 08/24/23 09:14 Completed HEAD WITHOUT CONTRAST [CT] Stat Exams 08/24/23 09:15 Completed Assessment/Plan (1) Acute respiratory failure with hypoxia Current Visit: Yes Status: Acute Assessment & Plan: (1) Acute respiratory failure with hypoxia Current Visit: Yes Status: Acute Assessment & Plan: -2/2 to pneumonia/copd exacerbation - continue ceftriaxone/azithromycin -CXR reviewed demonstrating right and left lung infiltrates with small bibasilar effusions. -RT consult -4L at baseline -Supplemental oxygen with goal spo2 88-92% -ABG PRN if significant hypoxia or lethargy Code(s): J96.01 - ACUTE RESPIRATORY FAILURE WITH HYPOXIA (2) Pneumonia Current Visit: Yes Status: Acute Assessment & Plan: -Supplemental oxygen with goal spo2 88-92% -ABG PRN if significant hypoxia or lethargy -LA - WNL -PCT, sputum culture, blood cultures pending -Resp viral panel negative -Ceftriaxone/azithromycin given in ED, will continue -Tylenol for fever 08/24: -Antibiotics changed to Zosyn due to risk factors and concern for aspiration -PCT elevated at 0.379 -WBC mildly elevated -Bcult pending Code(s): J18.9 - PNEUMONIA, UNSPECIFIED ORGANISM (3) COPD exacerbation Current Visit: Yes Status: Acute Assessment & Plan: -Supplemental oxygen with goal spo2 88-92% -ABG/BIPAP PRN -DuoNebs/INH -Solumedrol 40mg Q12H -titrate per clinical response -Consider CT/ pulm consult if no improvement 08/25/23: -Improved aeration, now at baseline oxygen of 4L -Solumedrol 20mg daily Code(s): J44.1 - CHRONIC OBSTRUCTIVE PULMONARY DISEASE W (ACUTE) EXACERBATION (4) Altered mental status Current Visit: Yes Status: Acute Assessment & Plan: -Most likely secondary to pneumonia -UA negative/LA negative/blood glucose level stable/ ammonia level WNL -CXR showing pneumonia -TSH, B12, fol, coritisol-Blood cultures pending -CT head negative for acute findings -Consider MRI/neuro consult if no improvement /suspicion of central cause -minimize narcotics -Orientation protocol 08/24: -TSH, B12/fol WNL -Confusion resolved Code(s): R41.82 - ALTERED MENTAL STATUS, UNSPECIFIED (5) Coronary artery disease Current Visit: No Status: Chronic Assessment & Plan: -Noted, continue home medications Code(s): I25.10 - ATHSCL HEART DISEASE OF [place] CORONARY ARTERY W/O ANG PCTRS (6) Diabetes mellitus Current Visit: No Status: Chronic Assessment & Plan: -ADA diet -A1c 7.25 -SSI/glargine, meal time insulin - will adjust as appropriate for steroid use (7) Acidosis -no N/V/D, euvolemic, most likely secondary to infection, will give oral bicarb, continue to monitor VTE: lovenox PPI: Protonix Dispo: 1-2 days Code(s): J96.01 - ACUTE RESPIRATORY FAILURE WITH HYPOXIA (2) Pneumonia Current Visit: Yes Status: Acute Code(s): J18.9 - PNEUMONIA, UNSPECIFIED ORGANISM (3) COPD exacerbation Current Visit: Yes Status: Acute Code(s): J44.1 - CHRONIC OBSTRUCTIVE PULMONARY DISEASE W (ACUTE) EXACERBATION (4) Altered mental status Current Visit: Yes Status: Acute Code(s): R41.82 - ALTERED MENTAL STATUS, UNSPECIFIED (5) Coronary artery disease Current Visit: No Status: Chronic Code(s): I25.10 - ATHSCL HEART DISEASE OF [place] CORONARY ARTERY W/O ANG PCTRS (6) Diabetes mellitus Current Visit: No Status: Chronic Code(s): E11.9 - TYPE 2 DIABETES MELLITUS WITHOUT COMPLICATIONS (7) Acidosis, unspecified Current Visit: Yes Status: Acute Code(s): E87.20 - ACIDOSIS, UNSPECIFIED
[2023-08-25 05:20] LABS: ALBUMIN 3.6 g/dL (3.5-5.0); ANION GAP 14.2 MEQ/L (5-15); BILIRUBIN,TOTAL 0.5 mg/dL (0.2-1.3); Calcium 8.6 mg/dL (8.4-10.2); Creatinine 1 0.67 mg/dL (0.66-1.25); EST GLOMERULAR FILTRATION RATE 104.9 ML/MIN; Total Protein 6.6 g/dL (6.3-8.2)
[2023-08-25] MEDS ORDERED: PROVENTIL Solution 2.5 MG/0.5 ML IH ONE ×2 (05:34→19:15)
[2023-08-25] MEDS: HUMALOG SQ PRN (08:29)
[2023-08-25] MEDS: VITAMIN D PO SCH (08:29)
[2023-08-25] MEDS: Januvia 50 MG PO SCH (08:30)
[2023-08-25] MEDS: ZOLOFT 50 MG TABLET PO SCH (08:33)
[2023-08-25] MEDS: Calcium 500MG W/Vit D Tablet PO SCH (08:35)
[2023-08-25] MEDS: FOLATE 1 MG PO SCH (08:35)
[2023-08-25] MEDS: PLAVIX Tablet PO SCH (08:35)
[2023-08-25] MEDS: SODIUM BICARBONATE PO SCH (08:36)
[2023-08-25] MEDS: Zinc Gluconate 50 MG PO SCH (08:36)
[2023-08-25 10:00] LABS: Absolute Neutrophil Ct (ANC) 9.53 x10^3/uL (1.4-6.9); BASOPHIL % 0.1 % (0.0-0.4); Basophil (Absolute #) 0.01 x10^3/uL (0-0.4); Eosinophil (Absolute #) 0 x10^3/uL (0-0.5); Hematocrit 33.5 % (42-50); Hemoglobin 10.5 g/dL (12.5-18.0); IMMATURE GRAN # 0.11 x10^3u/L (0.00-0.03); IMMATURE GRAN % 0.9 % (0.00-0.4); Lymphocyte (Absolute #) 1.64 x10^3/uL (1.0-4.6); Lymphocytes % 13.8 % (24.0-44.0); Mean Cell Volume 92.3 fL (78-100); Mean Corpuscular Hemoglobin 28.9 pg (26-32); Mean Corpuscular Hgb Concent. 31.3 g/dL (32-36); Mean Platelet Volume 8.9 fL (7.5-11.0); Monocyte (Absolute #) 0.59 x10^3/uL (0.0-1.3); Neutrophil % 80.2 % (36.0-66.0); Platelet Count 173 x10^3/uL (150-450); Red Blood Count 3.63 x10^6/uL (4.1-5.6); Red Cell Distribution Width 13.5 % (11.5-14.0); White Blood Count 11.9 x10^3/uL (4.0-10.5)
[2023-08-25] MEDS ORDERED: CHOLECALCIFEROL 5000 UNIT PO SCH (10:00)
[2023-08-25] MEDS ORDERED: ROCEPHIN 1 GM / 100 ML NaCl 1 GM/100 ML IVPB IV SCH (10:00)
[2023-08-25] MEDS: HUMALOG SQ SCH (17:46)
[2023-08-25] MEDS: Lantus Insulin SQ SCH (21:40)
[2023-08-26 04:55] LABS: Hemoglobin 10.5 g/dL (12.5-18.0); Mean Cell Volume 92.4 fL (78-100); Mean Corpuscular Hemoglobin 28.5 pg (26-32); Mean Corpuscular Hgb Concent. 30.9 g/dL (32-36); Mean Platelet Volume 9.2 fL (7.5-11.0); Platelet Count 195 x10^3/uL (150-450); Red Blood Count 3.68 x10^6/uL (4.1-5.6); Red Cell Distribution Width 13.3 % (11.5-14.0); White Blood Count 10.9 x10^3/uL (4.0-10.5)
[2023-08-26 05:16] LABS: ALBUMIN 3.5 g/dL (3.5-5.0); ANION GAP 12.7 MEQ/L (5-15); BILIRUBIN,TOTAL 0.3 mg/dL (0.2-1.3); Calcium 8.7 mg/dL (8.4-10.2); Creatinine 1 0.86 mg/dL (0.66-1.25); EST GLOMERULAR FILTRATION RATE 97.3 ML/MIN; Potassium 3.8 mmol/L (3.5-5.1); Total Protein 6.3 g/dL (6.3-8.2)
[2023-08-26] MEDS ORDERED: PROVENTIL Solution 2.5 MG/0.5 ML IH ONE (05:22)
--- NOTE | 2023-08-26 05:28 | PCM.NOTE ---
Date and Time: 08/26/23 05 Subjective Assessment: HPI: is a 63 year old male pmhx of COPD (4L baseline oxygen), IDDM, HTN, DDD, OA, Depression, HLD, GERD, CAD, [place], emphysema, and peripheral neuropathy who presented to ED 08/24/23 via EMS from his nursing facility with complaints of fever TMax 101, increased shortness of breath, productive cough with green sputum, and reported confusion. Admitted for acute respiratory failure with hypoxia secondary to pneumonia/COPD exacerbation. Plan for treatment with IV abx/ steroids/ supportive care. In ED, patient febrile at 101, hypotensive, with spo2 @ 93% on 4L oxygen. EKG NS with no ST elevations/deviations. CXR demonstrating right and left lung infiltrates with small bibasilar effusions. Head CT with no acute findings. Lab findings remarkable for normocytic anemia with hgb at 11, BNP at 205. Urine and viral panel negative. Patient given ceftriaxone/solu-medrol/proventil in ED. Started on Zosyn due to concern for aspiration and risk factors of COPD and residing in a nursing facility. 08/25/23: Objective Exam Wound Assessment: Skin/Wound Assessment Wound/Incision Assessment Start: 08/24/23 14:26 Text: Status: Active Freq: Q6H Protocol: Document 08/26/23 02:00 LB (Rec: 08/26/23 02:54 LB [id number]) Wound/Incision Assessment Right Posterior Buttock Wound Assessment Shift Assessment Wound Type Pressure Ulcer Wound Stage Stage I Dressing Status Dry & Intact Drainage Amount None Comment PT HAS REDDENED BUTTOCK, DOES NOT JACKIE, NO OPEN AREAS, BARRIER CREAM APPLIED- continues to be true Wound Photo Photo Taken No Objective Data Vital Signs: Vital Signs - 24 hr Temp Pulse Resp BP Pulse Ox 08/26/23 03:50 98.1 F 71 22 127/66 98 08/26/23 00:00 20 08/25/23 20:47 76 16 97 08/25/23 19:49 97.8 F 74 21 118/64 94 L 08/25/23 16:00 96.9 F 75 16 122/66 97 08/25/23 12:00 96.7 F 115 H 20 114/59 96 08/25/23 08:00 97.9 F 71 20 103/61 91 L 08/25/23 07:05 97 08/25/23 05:47 83 16 97 Pain Assessment - Last Documented Pain Intensity 8 Pain Scale Used 0-10 Pain Scale Intake and Output: Intake & Output 08/23/23 08/24/23 08/25/23 08/26/23 11:59 11:59 11:59 11:59 Intake Total 840 1220 Output Total 650 Balance 190 1220 Weight 108.7 kg 108.2 kg Lab Results: Lab Results-Last 24 Hours 08/24/23 08/25/23 08/25/23 Range/Units 09:30 04:45 04:45 WBC 11.9 H (4.0-10.5) x10^3/uL RBC 3.63 L (4.1-5.6) x10^6/uL Hgb 10.5 L (12.5-18.0) g/dL Hct 33.5 L (42-50) % MCV 92.3 (78-100) fL MCH 28.9 (26-32) pg MCHC 31.3 L (32-36) g/dL RDW 13.5 (11.5-14.0) % Plt Count 173 (150-450) x10^3/uL MPV 8.9 (7.5-11.0) fL Gran % 80.2 H (36.0-66.0) % Immature Gran % (Auto) 0.9 H (0.00-0.4) % Nucleat RBC Rel Count 0.0 (0.00-0.1) % Eos # (Auto) 0 (0-0.5) x10^3/uL Immature Gran # (Auto) 0.11 H (0.00-0.03) x10^3u/L Absolute Lymphs (auto) 1.64 (1.0-4.6) x10^3/uL Absolute Monos (auto) 0.59 (0.0-1.3) x10^3/uL Absolute Nucleated RBC 0.00 (0.00-0.01) x10^3u/L Lymphocytes % 13.8 L (24.0-44.0) % Monocytes % 5.0 (0.0-12.0) % Eosinophils % 0.0 (0.00-5.0) % Basophils % 0.1 (0.0-0.4) % Absolute Granulocytes 9.53 H (1.4-6.9) x10^3/uL Basophils # 0.01 (0-0.4) x10^3/uL Sodium 136 (135-145) mmol/L Potassium 4.0 (3.5-5.1) mmol/L Chloride 108 H (98-107) mmol/L Carbon Dioxide 17 L (22-30) mmol/L Anion Gap 14.2 (5-15) MEQ/L BUN 19 (9-20) mg/dL Creatinine 0.67 (0.66-1.25) mg/dL Estimated GFR 104.9 ML/MIN Glucose 217 H (74-106) mg/dL POC Glucometer (74 to 106) mg/dL Calcium 8.6 (8.4-10.2) mg/dL Total Bilirubin 0.50 (0.2-1.3) mg/dL AST 21 (17-59) U/L ALT 17 (0-50) U/L Alkaline Phosphatase 80 (38-126) U/L Serum Total Protein 6.6 (6.3-8.2) g/dL Albumin 3.6 (3.5-5.0) g/dL Cortisol 17.0 (6.2-19.4) ug/dL 08/25/23 08/25/23 08/25/23 Range/Units 06:46 11:30 16:16 WBC (4.0-10.5) x10^3/uL RBC (4.1-5.6) x10^6/uL Hgb (12.5-18.0) g/dL Hct (42-50) % MCV (78-100) fL MCH (26-32) pg MCHC (32-36) g/dL RDW (11.5-14.0) % Plt Count (150-450) x10^3/uL MPV (7.5-11.0) fL Gran % (36.0-66.0) % Immature Gran % (Auto) (0.00-0.4) % Nucleat RBC Rel Count (0.00-0.1) % Eos # (Auto) (0-0.5) x10^3/uL Immature Gran # (Auto) (0.00-0.03) x10^3u/L Absolute Lymphs (auto) (1.0-4.6) x10^3/uL Absolute Monos (auto) (0.0-1.3) x10^3/uL Absolute Nucleated RBC (0.00-0.01) x10^3u/L Lymphocytes % (24.0-44.0) % Monocytes % (0.0-12.0) % Eosinophils % (0.00-5.0) % Basophils % (0.0-0.4) % Absolute Granulocytes (1.4-6.9) x10^3/uL Basophils # (0-0.4) x10^3/uL Sodium (135-145) mmol/L Potassium (3.5-5.1) mmol/L Chloride (98-107) mmol/L Carbon Dioxide (22-30) mmol/L Anion Gap (5-15) MEQ/L BUN (9-20) mg/dL Creatinine (0.66-1.25) mg/dL Estimated GFR ML/MIN Glucose (74-106) mg/dL POC Glucometer 217 H 274 H 260 H (74 to 106) mg/dL Calcium (8.4-10.2) mg/dL Total Bilirubin (0.2-1.3) mg/dL AST (17-59) U/L ALT (0-50) U/L Alkaline Phosphatase (38-126) U/L Serum Total Protein (6.3-8.2) g/dL Albumin (3.5-5.0) g/dL Cortisol (6.2-19.4) ug/dL 08/25/23 08/26/23 08/26/23 Range/Units 20:42 04:25 04:25 WBC 10.9 H (4.0-10.5) x10^3/uL RBC 3.68 L (4.1-5.6) x10^6/uL Hgb 10.5 L (12.5-18.0) g/dL Hct 34.0 L (42-50) % MCV 92.4 (78-100) fL MCH 28.5 (26-32) pg MCHC 30.9 L (32-36) g/dL RDW 13.3 (11.5-14.0) % Plt Count 195 (150-450) x10^3/uL MPV 9.2 (7.5-11.0) fL Gran % (36.0-66.0) % Immature Gran % (Auto) (0.00-0.4) % Nucleat RBC Rel Count (0.00-0.1) % Eos # (Auto) (0-0.5) x10^3/uL Immature Gran # (Auto) (0.00-0.03) x10^3u/L Absolute Lymphs (auto) (1.0-4.6) x10^3/uL Absolute Monos (auto) (0.0-1.3) x10^3/uL Absolute Nucleated RBC (0.00-0.01) x10^3u/L Lymphocytes % (24.0-44.0) % Monocytes % (0.0-12.0) % Eosinophils % (0.00-5.0) % Basophils % (0.0-0.4) % Absolute Granulocytes (1.4-6.9) x10^3/uL Basophils # (0-0.4) x10^3/uL Sodium 141 (135-145) mmol/L Potassium 3.8 (3.5-5.1) mmol/L Chloride 108 H (98-107) mmol/L Carbon Dioxide 25 (22-30) mmol/L Anion Gap 12.7 (5-15) MEQ/L BUN 22 H (9-20) mg/dL Creatinine 0.86 (0.66-1.25) mg/dL Estimated GFR 97.3 ML/MIN Glucose 117 H (74-106) mg/dL POC Glucometer 182 H (74 to 106) mg/dL Calcium 8.7 (8.4-10.2) mg/dL Total Bilirubin 0.30 (0.2-1.3) mg/dL AST 17 (17-59) U/L ALT 17 (0-50) U/L Alkaline Phosphatase 70 (38-126) U/L Serum Total Protein 6.3 (6.3-8.2) g/dL Albumin 3.5 (3.5-5.0) g/dL Cortisol (6.2-19.4) ug/dL Radiology Exams: Radiology Procedures Category Date Time Status CHEST 1 VIEW (PORTABLE) Stat Exams 08/24/23 09:14 Completed HEAD WITHOUT CONTRAST [CT] Stat Exams 08/24/23 09:15 Completed Assessment/Plan (1) Acute respiratory failure with hypoxia Current Visit: Yes Status: Acute Assessment & Plan: -2/2 to pneumonia/copd exacerbation - continue ceftriaxone/azithromycin -CXR reviewed demonstrating right and left lung infiltrates with small bibasilar effusions. -RT consult -4L at baseline -Supplemental oxygen with goal spo2 88-92% -ABG PRN if significant hypoxia or lethargy Code(s): J96.01 - ACUTE RESPIRATORY FAILURE WITH HYPOXIA (2) Pneumonia Current Visit: Yes Status: Acute Assessment & Plan: -Supplemental oxygen with goal spo2 88-92% -ABG PRN if significant hypoxia or lethargy -LA - WNL -PCT, sputum culture, blood cultures pending -Resp viral panel negative -Ceftriaxone/azithromycin given in ED, will continue -Tylenol for fever 08/24: -Antibiotics changed to Zosyn due to risk factors and concern for aspiration -PCT elevated at 0.379 -WBC mildly elevated -Bcult pending Code(s): J18.9 - PNEUMONIA, UNSPECIFIED ORGANISM (3) COPD exacerbation Current Visit: Yes Status: Acute Assessment & Plan: -Supplemental oxygen with goal spo2 88-92% -ABG/BIPAP PRN -DuoNebs/INH -Solumedrol 40mg Q12H -titrate per clinical response -Consider CT/ pulm consult if no improvement 08/25/23: -Improved aeration, now at baseline oxygen of 4L -Solumedrol 20mg daily Code(s): J44.1 - CHRONIC OBSTRUCTIVE PULMONARY DISEASE W (ACUTE) EXACERBATION (4) Altered mental status Current Visit: Yes Status: Acute Assessment & Plan: -Most likely secondary to pneumonia -UA negative/LA negative/blood glucose level stable/ ammonia level WNL -CXR showing pneumonia -TSH, B12, fol, coritisol-Blood cultures pending -CT head negative for acute findings -Consider MRI/neuro consult if no improvement /suspicion of central cause -minimize narcotics -Orientation protocol 08/24: -TSH, B12/fol WNL -Confusion resolved Code(s): R41.82 - ALTERED MENTAL STATUS, UNSPECIFIED (5) Coronary artery disease Current Visit: No Status: Chronic Assessment & Plan: -Noted, continue home medications Code(s): I25.10 - ATHSCL HEART DISEASE OF [place] CORONARY ARTERY W/O [facility] PCTRS (6) Diabetes mellitus Current Visit: No Status: Chronic Assessment & Plan: -ADA diet -A1c 7.25 -SSI/glargine, meal time insulin - will adjust as appropriate for steroid use (7) Acidosis -no N/V/D, euvolemic, most likely secondary to infection, will give oral bicarb, continue to monitor VTE: lovenox PPI: Protonix Dispo: 1-2 days Code(s): J96.01 - ACUTE RESPIRATORY FAILURE WITH HYPOXIA (2) Pneumonia Current Visit: Yes Status: Acute Code(s): J18.9 - PNEUMONIA, UNSPECIFIED ORGANISM (3) COPD exacerbation Current Visit: Yes Status: Acute Code(s): J44.1 - CHRONIC OBSTRUCTIVE PULMONARY DISEASE W (ACUTE) EXACERBATION (4) Altered mental status Current Visit: Yes Status: Acute Code(s): R41.82 - ALTERED MENTAL STATUS, UNSPECIFIED (5) Coronary artery disease Current Visit: No Status: Chronic Code(s): I25.10 - ATHSCL HEART DISEASE OF [place] CORONARY ARTERY W/O [facility] PCTRS (6) Diabetes mellitus Current Visit: No Status: Chronic Code(s): E11.9 - TYPE 2 DIABETES MELLITUS WITHOUT COMPLICATIONS (7) Acidosis, unspecified Current Visit: Yes Status: Acute Code(s): E87.20 - ACIDOSIS, UNSPECIFIED
[2023-08-26] MEDS: solu-MEDROL 20 MG, Sterile H2O 10 ml 1 ML IV SCH (08:40)
--- NOTE | 2023-08-26 11:17 | PCM.DS ---
Discharge Summary Date of Admission: 08/24/23 13:07 Date of Discharge: 08/26/23 Admitting Physician: FARIHA ASHLEY MD Primary Care Provider: TERENCE GIBBS Allergies Allergies amitriptyline HCl [From Elavil] Allergy (Severe, Verified 08/24/23 09:24) Rapid Heart Beat hallucination tramadol HCl [From Ultram] Allergy (Severe, Verified 08/24/23 09:24) double vision divalproex sodium [From Depakote] Allergy (Verified 08/24/23 09:24) alprazolam [From Xanax] Adverse Reaction (Severe, Verified 08/24/23 09:24) makes me aggitated Hospital Summary - Hospital Course Hospital Course: is a 63 year old male pmhx of COPD (4L baseline oxygen), IDDM, HTN, DDD, OA, Depression, HLD, GERD, CAD, [place], emphysema, and peripheral neuropathy who presented to ED 08/24/23 via EMS from his nursing facility with complaints of fever TMax 101, increased shortness of breath, productive cough with green sputum, and reported confusion. Admitted for acute respiratory failure with hypoxia secondary to pneumonia/COPD exacerbation. Plan for treatment with IV abx/ steroids/ supportive care. In ED, patient febrile at 101, hypotensive, with spo2 @ 93% on 4L oxygen. EKG NS with no ST elevations/deviations. CXR demonstrating right and left lung infiltrates with small bibasilar effusions. Head CT with no acute findings. Lab findings remarkable for normocytic anemia with hgb at 11, BNP at 205. Urine and viral panel negative. Patient given ceftriaxone/solu-medrol/proventil in ED. Started on Zosyn due to concern for aspiration and risk factors of COPD and residing in a nursing facility. Patient tolerates food with no choking or aspiration. Dyspnea and cough have improved. Patient now at baseline oxygen of 4L. Confusion resolved. He has remained afebr ile. labs have improved. Will discharge patient with medrol dose pack and cefpodoxime. Discharge Note New Diagnosis: Pneumonia New Medications: cefpodoxime/medrol dosepack Follow Up: PCP/pulm Latest Assessment & Plan (1) Acute respiratory failure with hypoxia Current Visit: Yes Status: Acute Assessment & Plan: -2/2 to pneumonia/copd exacerbation - continue ceftriaxone/azithromycin -CXR reviewed demonstrating right and left lung infiltrates with small bibasilar effusions. -RT consult -4L at baseline -Supplemental oxygen with goal spo2 88-92% -ABG PRN if significant hypoxia or lethargy Code(s): J96.01 - ACUTE RESPIRATORY FAILURE WITH HYPOXIA (2) Pneumonia Current Visit: Yes Status: Acute Assessment & Plan: -Supplemental oxygen with goal spo2 88-92% -ABG PRN if significant hypoxia or lethargy -LA - WNL -PCT, sputum culture, blood cultures pending -Resp viral panel negative -Ceftriaxone/azithromycin given in ED, will continue -Tylenol for fever 08/24: -Antibiotics changed to Zosyn due to risk factors and concern for aspiration -PCT elevated at 0.379 -WBC mildly elevated -Bcult pending Code(s): J18.9 - PNEUMONIA, UNSPECIFIED ORGANISM (3) COPD exacerbation Current Visit: Yes Status: Acute Assessment & Plan: -Supplemental oxygen with goal spo2 88-92% -ABG/BIPAP PRN -DuoNebs/INH -Solumedrol 40mg Q12H -titrate per clinical response -Consider CT/ pulm consult if no improvement 08/25/23: -Improved aeration, now at baseline oxygen of 4L -Solumedrol 20mg daily Code(s): J44.1 - CHRONIC OBSTRUCTIVE PULMONARY DISEASE W (ACUTE) EXACERBATION (4) Altered mental status Current Visit: Yes Status: Acute Assessment & Plan: -Most likely secondary to pneumonia -UA negative/LA negative/blood glucose level stable/ ammonia level WNL -CXR showing pneumonia -TSH, B12, fol, coritisol-Blood cultures pending -CT head negative for acute findings -Consider MRI/neuro consult if no improvement /suspicion of central cause -minimize narcotics -Orientation protocol 08/24: -TSH, B12/fol WNL -Confusion resolved Code(s): R41.82 - ALTERED MENTAL STATUS, UNSPECIFIED (5) Coronary artery disease Current Visit: No Status: Chronic Assessment & Plan: -Noted, continue home medications Code(s): I25.10 - ATHSCL HEART DISEASE OF [place] CORONARY ARTERY W/O ANG PCTRS (6) Diabetes mellitus Current Visit: No Status: Chronic Assessment & Plan: -ADA diet -A1c 7.25 -SSI/glargine, meal time insulin - will adjust as appropriate for steroid use (7) Acidosis -no N/V/D, euvolemic, most likely secondary to infection, will give oral bicarb, continue to monitor I spent 35 minutes [id number] with the patient on the day of discharge performing discharge exam, discussing hospital stay and discharge instructions with patient and caregivers, preparation of discharge records, prescriptions & referral forms and addressing any questions/concerns the patient had as documented above. - Vitals & Intake/Output Vital Signs: Vital Signs Temperature 97.6 F 08/26/23 07:01 Pulse Rate 62 08/26/23 07:01 Respiratory Rate 18 08/26/23 07:01 Blood Pressure 115/72 08/26/23 07:01 O2 Sat by Pulse Oximetry 97 08/26/23 07:01 Intake & Output: Intake & Output 08/23/23 08/24/23 08/25/23 08/26/23 11:59 11:59 11:59 11:59 Intake Total 840 1620 Output Total 650 Balance 190 1620 Weight 108.7 kg 108.2 kg 108.2 kg - Lab Result Diagrams: 08/26/23 04:25 08/26/23 04:25 Lab Results-Last 24 Hrs: Lab Results-Last 24 Hours 08/24/23 08/25/23 08/25/23 Range/Units 09:30 11:30 16:16 WBC (4.0-10.5) x10^3/uL RBC (4.1-5.6) x10^6/uL Hgb (12.5-18.0) g/dL Hct (42-50) % MCV (78-100) fL MCH (26-32) pg MCHC (32-36) g/dL RDW (11.5-14.0) % Plt Count (150-450) x10^3/uL MPV (7.5-11.0) fL Sodium (135-145) mmol/L Potassium (3.5-5.1) mmol/L Chloride (98-107) mmol/L Carbon Dioxide (22-30) mmol/L Anion Gap (5-15) MEQ/L BUN (9-20) mg/dL Creatinine (0.66-1.25) mg/dL Estimated GFR ML/MIN Glucose (74-106) mg/dL POC Glucometer 274 H 260 H (74 to 106) mg/dL Calcium (8.4-10.2) mg/dL Total Bilirubin (0.2-1.3) mg/dL AST (17-59) U/L ALT (0-50) U/L Alkaline Phosphatase (38-126) U/L Serum Total Protein (6.3-8.2) g/dL Albumin (3.5-5.0) g/dL Cortisol 17.0 (6.2-19.4) ug/dL 08/25/23 08/26/23 08/26/23 Range/Units 20:42 04:25 04:25 WBC 10.9 H (4.0-10.5) x10^3/uL RBC 3.68 L (4.1-5.6) x10^6/uL Hgb 10.5 L (12.5-18.0) g/dL Hct 34.0 L (42-50) % MCV 92.4 (78-100) fL MCH 28.5 (26-32) pg MCHC 30.9 L (32-36) g/dL RDW 13.3 (11.5-14.0) % Plt Count 195 (150-450) x10^3/uL MPV 9.2 (7.5-11.0) fL Sodium 141 (135-145) mmol/L Potassium 3.8 (3.5-5.1) mmol/L Chloride 108 H (98-107) mmol/L Carbon Dioxide 25 (22-30) mmol/L Anion Gap 12.7 (5-15) MEQ/L BUN 22 H (9-20) mg/dL Creatinine 0.86 (0.66-1.25) mg/dL Estimated GFR 97.3 ML/MIN Glucose 117 H (74-106) mg/dL POC Glucometer 182 H (74 to 106) mg/dL Calcium 8.7 (8.4-10.2) mg/dL Total Bilirubin 0.30 (0.2-1.3) mg/dL AST 17 (17-59) U/L ALT 17 (0-50) U/L Alkaline Phosphatase 70 (38-126) U/L Serum Total Protein 6.3 (6.3-8.2) g/dL Albumin 3.5 (3.5-5.0) g/dL Cortisol (6.2-19.4) ug/dL 08/26/23 Range/Units 06:42 WBC (4.0-10.5) x10^3/uL RBC (4.1-5.6) x10^6/uL Hgb (12.5-18.0) g/dL Hct (42-50) % MCV (78-100) fL MCH (26-32) pg MCHC (32-36) g/dL RDW (11.5-14.0) % Plt Count (150-450) x10^3/uL MPV (7.5-11.0) fL Sodium (135-145) mmol/L Potassium (3.5-5.1) mmol/L Chloride (98-107) mmol/L Carbon Dioxide (22-30) mmol/L Anion Gap (5-15) MEQ/L BUN (9-20) mg/dL Creatinine (0.66-1.25) mg/dL Estimated GFR ML/MIN Glucose (74-106) mg/dL POC Glucometer 98 (74 to 106) mg/dL Calcium (8.4-10.2) mg/dL Total Bilirubin (0.2-1.3) mg/dL AST (17-59) U/L ALT (0-50) U/L Alkaline Phosphatase (38-126) U/L Serum Total Protein (6.3-8.2) g/dL Albumin (3.5-5.0) g/dL Cortisol (6.2-19.4) ug/dL Micro Results-Entire Visit: Microbiology 08/24/23 09:45 Blood Culture - Preliminary Blood 08/24/23 10:05 Blood Culture - Preliminary Blood Accuchecks Date 08/26/23 Date 08/25/23 Date 08/25/23 Date 08/25/23 Time 07:02 Time 20:30 - Procedures and Test Procedures and Tests throughout Hospitalization: Therapy Orders & Screens 08/24/23 09:26 Respiratory Therapy Assessment DAILY Comment: 08/24/23 13:20 EKG REPEAT IN AM Comment: Respiratory Therapy Consult ONCE Comment: Reason For Exam: 08/24/23 14:58 Oxygen Nasal Cannula 4 lpm Comment: Diagnosis: Hypoxia/AMS 08/24/23 14:59 Respiratory Therapy Assessment DAILY Comment: Diagnosis: Hypoxia/AMS 08/24/23 15:00 Respiratory MDI BID Comment: Diagnosis: Hypoxia/AMS Discharge Exam General Appearance: no apparent distress Neurologic Exam: alert, oriented x 3, cooperative Eye Exam: PERRL Ears, Nose, Throat Exam: normal ENT inspection Neck Exam: normal inspection Respiratory Exam: diminished breath sounds Cardiovascular Exam: regular rate/rhythm, normal heart sounds Gastrointestinal/Abdomen Exam: soft, normal bowel sounds Male Genitalia Exam: deferred Rectal Exam: deferred Back Exam: normal inspection Extremity Exam: normal inspection Skin Exam: normal color Wound Assessment: Skin/Wound Assessment Wound/Incision Assessment Start: 08/24/23 14:26 Text: Status: Active Freq: Q6H Protocol: Document 08/26/23 08:00 RB (Rec: 08/26/23 09:04 RB [id number]) Wound/Incision Assessment Right Posterior Buttock Wound Assessment Shift Assessment Wound Type Pressure Ulcer Wound Stage Stage I Dressing Status Dry & Intact Drainage Amount None Comment reddened . does not vandana Wound Photo Photo Taken No Final Diagnosis/Problem List - Final Discharge Diagnosis/Problem (1) Acute respiratory failure with hypoxia Current Visit: Yes Status: Resolved Code(s): J96.01 - ACUTE RESPIRATORY FAILURE WITH HYPOXIA (2) Pneumonia Current Visit: Yes Status: Acute Code(s): J18.9 - PNEUMONIA, UNSPECIFIED ORGANISM (3) COPD exacerbation Current Visit: Yes Status: Acute Code(s): J44.1 - CHRONIC OBSTRUCTIVE PULMONARY DISEASE W (ACUTE) EXACERBATION (4) Altered mental status Current Visit: Yes Status: Resolved Code(s): R41.82 - ALTERED MENTAL STATUS, UNSPECIFIED (5) Coronary artery disease Current Visit: No Status: Chronic Code(s): I25.10 - ATHSCL HEART DISEASE OF [place] CORONARY ARTERY W/O ANG PCTRS (6) Diabetes mellitus Current Visit: No Status: Chronic Code(s): E11.9 - TYPE 2 DIABETES MELLITUS WITHOUT COMPLICATIONS (7) Acidosis, unspecified Current Visit: Yes Status: Resolved Code(s): E87.20 - ACIDOSIS, UNSPECIFIED - Discharge Disposition: DC TO [facility] Condition: Stable Prescriptions: New Cefpodoxime Proxetil 200 mg [Vantin 200 mg] 200 mg PO BID 7 Days #14 tablet Methylprednisolone Packet [Medrol Dosepack] 4 mg PO UD #30 packet Continue Cholecalciferol (Vitamin D3) [Vitamin D3] 5,000 unit PO DAILY Ranolazine 500 MG [Ranexa 500 MG] 500 mg PO BID Morphine Sulfate [Morphine Sulfate ER] 60 mg PO TID Famotidine 40 mg PO BID Clopidogrel Bisulfate [PLAVIX Tablet] 75 mg PO DAILY Insulin Aspart [NovoLOG Insulin] 10 unit SQ AC Baclofen 10 mg [Lioresal 10 mg] 10 mg PO BID Calcium Carbonate/Vitamin D3 [Calcium 600-Vit D3 200 Tablet] 1 each PO DAILY Diazepam [Valium] 2 mg PO BID Fluticasone Propionate [Flovent Diskus] 1 spray NS DAILY Fluticasone/Umeclidin/Vilanter [Trelegy Ellipta 200-62.5-25] 1 inh PO DAILY Folic Acid 1 mg [Folate 1 mg] 1 mg PO DAILY guaiFENesin [Mucus ER] 600 mg PO Q12H Linagliptin [Tradjenta] 5 mg PO DAILY Montelukast Sodium 10 mg [Singulair 10 MG] 10 mg PO QHS PANTOPRAZOLE 40 mg Tablet [Protonix 40MG Tablet] 40 mg PO BID Sertraline HCl 50 mg PO DAILY Sucralfate 1 gm [Carafate 1 GM] 1 gm PO BID levalbuterol HCl [Xopenex 1.25 MG/0.5 ML UD NEBULE] 2 puff IH QID Albuterol Common Canister [Ventolin Common Canister] 2 puff IH Q4H PRN PRN PRN Reason: Shortness Of Breath Acetaminophen 325 mg [Tylenol 325 mg] 650 mg PO Q4H PRN PRN PRN Reason: Pain And/Or Fever Topiramate [Topamax] 75 mg PO BID Rosuvastatin Calcium 20 mg PO QHS Carboxymethylcellulose Sodium [Refresh Liquigel] 2 drop OP QID Propranolol HCl 60 mg PO BID Nitroglycerin 0.4 mg Tablet [Nitrostat 0.4 MG Tablet] 0.4 mg SL UD Mag Hydrox/Aluminum Hyd/Simeth [Mylanta Maximum Strength Liq] 10 ml PO QID Metoclopramide HCl 5 mg PO BID Melatonin 10 mg PO QHS Loperamide HCl 2 mg [Imodium 2 mg] 2 mg PO Q6H PRN PRN PRN Reason: Diarrhea Latanoprost [Xalatan] 1 drop OP QHS Insulin Detemir [Levemir] 60 unit SQ BID Insulin Aspart [Insulin Aspart Flexpen] 1 unit SQ UD Gabapentin 400 mg PO QID Calcium Carbonate [Alexis-Gest] 400 mg PO Q6H PRN PRN PRN Reason: heartburn Sodium Chloride/Aloe Vera [Saline Nasal Gel] 1 applic NS Q2H/PRN PRN PRN Reason: nasal dryness Sodium Chloride Nasal [place] [OCEAN Nasal [place]] 2 spray NS Q4H PRN PRN PRN Reason: nasal dryness Mineral Oil/Hydrophil Petrolat [Aquaphor Healing Ointment] 1 applic TOP Q12H PRN PRN PRN Reason: dry, cracked skin Non-Formulary Drug [Non-Formulary Item] 1 applic TOP TID Zinc Gluconate [Zinc] 50 mg PO DAILY Guaifenesin/Dextromethorphan [Robitussin Xvzux-Qxnzl-Nzgb Dm] 1 each PO Q4H PRN PRN PRN Reason: Sinus Congestion Carbamide Peroxide [Debrox] 4 drop OT Q12H PRN PRN PRN Reason: Severe Pain Menthol [Cough Drops] 5.8 mg MM Q4H PRN PRN PRN Reason: Cough Lanolin Alcohol/Mo/W.pet/[place] [Eucerin Cream] 1 gm TP Q8H PRN PRN PRN Reason: Redness/Irritation Follow up with: TERENCE GIBBS MD [Primary Care Provider] -
[2023-08-26 12:14] VITALS: BP 126/67; PULSE 66; RESP 18; TEMP 96.4; O2SAT 93
== END 2023-08-26 13:33 ==
LOC: ED 09:00 → INTOOBSV 13:07 → MED SURG 13:07
PROVIDERS: ADMIT Internal Medicine; ATTEND Internal Medicine
DX: J96.01 Acute respiratory failure with hypoxia (principal); J18.9 Pneumonia, unspecified organism; J44.1 Chronic obstructive pulmonary disease with (acute) exacerbation; R41.82 Altered mental status, unspecified; I25.10 Atherosclerotic heart disease of native coronary artery without angina pectoris; E11.9 Type 2 diabetes mellitus without complications; E87.20 Acidosis, unspecified; J44.9 Chronic obstructive pulmonary disease, unspecified; L89.311 Pressure ulcer of right buttock, stage 1; I25.2 Old myocardial infarction; M54.9 Dorsalgia, unspecified; Z79.01 Long term (current) use of anticoagulants; Z79.899 Other long term (current) drug therapy; Z20.828 Contact with and (suspected) exposure to other viral communicable diseases; Z99.81 Dependence on supplemental oxygen
CPT/HCPCS: 0241U; 36000; 36415; 70450; 71045; 80048; 80053; 81001; 82140; 82533; 82607; 82746; 82947; 83036; 83605; 83880; 84134; 84145; 84443; 84484; 85025; 85027; 85610; 86308; 87040; 87651; 93005; 93041; 94640; 94760; 96374; 96375; 99285; Q3014; G0378; J0696; J1650; J1817; J2270; J2405; J2920; J2930; J7609; A9270-GY

== ENCOUNTER 2023-10-01 06:43 | Observation (INO) | payer MEDICAID ==
--- NOTE | 2023-10-01 07:15 | XRAY ---
CLINICAL HISTORY: weakness COMPARISON: 08/24/2023. TECHNIQUE: CT scan of the brain without contrast administration. Images were acquired in axial cuts with coronal and sagittal reformation. One of the following dose reduction techniques was utilized for this exam: Automated exposure control, adjustment of the mA and/or kV according to patient size, and use of iterative reconstruction. FINDINGS: No area of abnormally low or high attenuation value was seen. Age-matched central and cortical involutional brain changes as evident by prominent cortical sulci, widened basal cisterns, and mild ventricular dilatation. No CT evidence of established territorial infarct was noted. No shift of the midline structures. No evidence of intra or extra axial recent hematoma. Normal appearance of the posterior fossa structures including the brainstem and cerebellum. Bone window settings showed no evidence of fractures or destructive lesions. Deviated nasal septum to the left side. IMPRESSION: 1. No intracranial hemorrhage, established major territorial infarct, or mass effect was noted. 2. Age-matched involutional brain changes. 3. No interval changes. [facility] was called at [phone] at 06:11 AM PROFESSIONAL SERVICES CONSULTANT, 10/01/2023 and results were verbally communicated to Roque Goncalves. Electronically Signed by: Ekta Storey MD. (10/01/2023 07:12:03 EDT)
--- NOTE | 2023-10-01 07:22 | ERPHSYRPT ---
- History of Present Illness Time Seen by Provider: 10/01/23 07:15 Source: patient, EMS Exam Limitations: no limitations Physician History: 63yo m presents via EMS after being found on floor by detention staff. EMS reports detention saw pt in his bed at 0400 so fall occurred between 0400 and 0600. Pt is AxO x 3 on exam, is slow to answer questions. Pt complains of low back pain that he states is chronic. Pt reports he does not know how he ended up on the floor. Pt also complains of some right hip discomfort. Temp 100.2F orally on arrival. Pt currently denies cp, soa, n/v/abdominal pain, no recent infections documented by detention. Pt takes clopidogrel. Occurred: this morning Reason for Fall: unknown Injuries/Pain Location: no injury Loss of Consciousness: unsure Quality: aching Severity of Pain-Max: mild Severity of Pain-Current: mild Modifying Factors: Improves With: nothing Associated Symptoms (Fall): back pain, No abdominal pain, No confusion, No chest pain, No extremity injury, No headache, No nausea, No neck pain, No shortness of breath, No slurred speech Allergies/Adverse Reactions: amitriptyline HCl [From Elavil] Allergy (Severe, Verified 10/01/23 06:54) Rapid Heart Beat hallucination tramadol HCl [From Ultram] Allergy (Severe, Verified 10/01/23 06:54) double vision divalproex sodium [From Depakote] Allergy (Verified 10/01/23 06:54) alprazolam [From Xanax] Adverse Reaction (Severe, Verified 10/01/23 06:54) makes me aggitated Home Medications: Cholecalciferol (Vitamin D3) [Vitamin D3] 5,000 unit PO DAILY 01/04/16 [History] Clopidogrel Bisulfate [PLAVIX Tablet] 75 mg PO DAILY 01/04/16 [History] Famotidine 40 mg PO BID 01/04/16 [History] Insulin Aspart [NovoLOG Insulin] 10 unit SQ AC 01/04/16 [History] Morphine Sulfate [Morphine Sulfate ER] 60 mg PO TID 01/04/16 [History] Ranolazine 500 MG [Ranexa 500 MG] 500 mg PO BID 01/04/16 [History] Baclofen 10 mg [Lioresal 10 mg] 10 mg PO BID 12/20/22 [History] Calcium Carbonate/Vitamin D3 [Calcium 600-Vit D3 200 Tablet] 1 each PO DAILY 12/20/22 [History] Diazepam [Valium] 2 mg PO BID 12/20/22 [History] Fluticasone Propionate [Flovent Diskus] 1 spray NS DAILY 12/20/22 [History] Fluticasone/Umeclidin/Vilanter [Trelegy Ellipta 200-62.5-25] 1 inh PO DAILY 12/20/22 [History] Folic Acid 1 mg [Folate 1 mg] 1 mg PO DAILY 12/20/22 [History] Linagliptin [Tradjenta] 5 mg PO DAILY 12/20/22 [History] Montelukast Sodium 10 mg [Singulair 10 MG] 10 mg PO QHS 12/20/22 [History] PANTOPRAZOLE 40 mg Tablet [Protonix 40MG Tablet] 40 mg PO BID 12/20/22 [History] Sertraline HCl 50 mg PO DAILY 12/20/22 [History] Sucralfate 1 gm [Carafate 1 GM] 1 gm PO BID 12/20/22 [History] guaiFENesin [Mucus ER] 600 mg PO Q12H 12/20/22 [History] Acetaminophen 325 mg [Tylenol 325 mg] 650 mg PO Q4H PRN PRN 08/24/23 [History] Albuterol Common Canister [Ventolin Common Canister] 2 puff IH Q4H PRN PRN 08/24/23 [History] Calcium Carbonate [Alexis-Gest] 400 mg PO Q6H PRN PRN 08/24/23 [History] Carbamide Peroxide [Debrox] 4 drop OT Q12H PRN PRN 08/24/23 [History] Carboxymethylcellulose Sodium [Refresh Liquigel] 2 drop OP QID 08/24/23 [History] Gabapentin 400 mg PO QID 08/24/23 [History] Guaifenesin/Dextromethorphan [Robitussin Socat-Nneon-Vrts Dm] 1 each PO Q4H PRN PRN 08/24/23 [History] Insulin Aspart [Insulin Aspart Flexpen] 1 unit SQ UD 08/24/23 [History] Insulin Detemir [Levemir] 60 unit SQ BID 08/24/23 [History] Lanolin Alcohol/Mo/W.pet/Linden [Eucerin Cream] 1 gm TP Q8H PRN PRN 08/24/23 [History] Latanoprost [Xalatan] 1 drop OP QHS 08/24/23 [History] Loperamide HCl 2 mg [Imodium 2 mg] 2 mg PO Q6H PRN PRN 08/24/23 [History] Mag Hydrox/Aluminum Hyd/Simeth [Mylanta Maximum Strength Liq] 10 ml PO QID 08/24/23 [History] Melatonin 10 mg PO QHS 08/24/23 [History] Menthol [Cough Drops] 5.8 mg MM Q4H PRN PRN 08/24/23 [History] Metoclopramide HCl 5 mg PO BID 08/24/23 [History] Mineral Oil/Hydrophil Petrolat [Aquaphor Healing Ointment] 1 applic TOP Q12H PRN PRN 08/24/23 [History] Nitroglycerin 0.4 mg Tablet [Nitrostat 0.4 MG Tablet] 0.4 mg SL UD 08/24/23 [History] Non-Formulary Drug [Non-Formulary Item] 1 applic TOP TID 08/24/23 [History] Propranolol HCl 60 mg PO BID 08/24/23 [History] Rosuvastatin Calcium 20 mg PO QHS 08/24/23 [History] Sodium Chloride Nasal [place] [OCEAN Nasal [place]] 2 spray NS Q4H PRN PRN 08/24/23 [History] Sodium Chloride/Aloe Vera [Saline Nasal Gel] 1 applic NS Q2H/PRN PRN 08/24/23 [History] Topiramate [Topamax] 75 mg PO BID 08/24/23 [History] Zinc Gluconate [Zinc] 50 mg PO DAILY 08/24/23 [History] levalbuterol HCl [Xopenex 1.25 MG/0.5 ML UD NEBULE] 2 puff IH QID 03/06/24 [History] Hx Tetanus, Diphtheria Vaccination/Date Given: (unknown) Hx Influenza Vaccination/Date Given: Yes Hx Pneumococcal Vaccination/Date Given: Yes - Review of Systems Constitutional: Weakness, No Fever, No Chills Eyes: No Eye Pain, No Photophobia, No Vision Changes Ears, Nose, & Throat: No Symptoms Respiratory: No Symptoms Cardiac: No Symptoms Abdominal/Gastrointestinal: No Symptoms Musculoskeletal: Back Pain, Joint Pain Neurological: Tremors (at baseline for patient), No Focal Weakness, No Headache, No Paralysis, No Parasthesia, No Sensory Changes, No Speech Changes - Past Medical History Pertinent Past Medical History: Yes Neurological History: Migraines, Peripheral Neuropathy ENT History: Cataracts Cardiac History: Coronary Artery Disease, Hypertension, Myocardial Infarction (DC) (x 3) Respiratory History: Asthma, COPD, Emphysema Endocrine Medical History: Diabetes Type II Musculoskeletal History: Arthritis, Degenerative Disk Disease, Osteoarthritis, Other GI Medical History: GERD History: No Pertinent History Psycho-Social History: Anxiety, Depression Male Reproductive Disorders: No Pertinent History Other Medical History: carpel tunnel - Past Surgical History Past Surgical History: Yes Neuro Surgical History: No Pertinent History Cardiac: Cardiac Stent Respiratory: Other Gastrointestinal: No Pertinent History Genitourinary: No Pertinent History Musculoskeletal: Other Male Surgical History: No Pertinent History Other Surgical History: finger surgery, Significant Family History: heart disease, diabetes, hypertension - Social History Smoking Status: Former smoker How long have you smoked: 40 years Exposure to second hand smoke: No Alcohol Use: None Drug Use: none Patient Lives Alone: No - Nursing Vital Signs Nursing Vital Signs: Initial Vital Signs Temperature 100.2 F 10/01/23 06:56 Pulse Rate 104 H 10/01/23 06:56 Respiratory Rate 20 10/01/23 06:56 Blood Pressure 95/70 10/01/23 06:56 O2 Sat by Pulse Oximetry 98 10/01/23 06:56 Pain Scale Pain Intensity 4 - [place] Coma Score Best Eye Response ([place]): (4) open spontaneously Best Verbal Response ([place]): (5) oriented Best Motor Response ([place]): (6) obeys commands [place] Total: 15 - Physical Exam General Appearance: no apparent distress, alert Head Injury: no evidence of injury, No Velez's Sign, No contusions, No lacerations, No raccoon eyes, No swelling, No tenderness Eye Exam: PERRL/EOMI, eyes nml inspection, No photophobia ENT Exam: airway nml, No evidence of ENT injury Neck Exam: supple, normal alignment, normal inspection, No focal neuro deficit Respiratory/Chest Exam: normal breath sounds, No chest tenderness, No respiratory distress, No ecchymosis, No crepitus, No decreased breath sounds, No rales, No rhonchi, No wheezing Cardiovascular Exam: normal heart sounds, normal peripheral pulses, tachycardia, No edema Gastrointestinal Exam: soft, normal bowel sounds, No tenderness, No distention Back Exam: muscle spasm, point tenderness (TTP over lumbar paraspinal musculature) Extremity Exam: normal inspection, capillary refill <3 sec, pelvis stable, pain with movement (right hip - hx of hip replacement), No deformities, No lacerations, No penetrations, No parasthesia, No paralysis, No joint swelling, No bony point tenderness, No evidence of injury, No hip tenderness, No joint effusion Neurologic Exam: alert, oriented x 3, cooperative, 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, normal mood/affect, sensation nml, No sensory deficit SpO2 Interpretation: normal SpO2: 95 O2 Delivery: Nasal Cannula (4L - baseline) - Course EKG Interpreted by Me: RATE (108), Sinus Tach, Other (OK 196; qtcb 436; not suggestive of ischemia) Ordered Tests: Active Orders 24 hr Category Date Time Status CHEST 1 VIEW (PORTABLE) Stat Exams 10/01/23 07:22 Taken HEAD WITHOUT CONTRAST [CT] Stat Exams 10/01/23 06:45 Completed HIP UNI (2V) INCL PEL IF DONE Stat Exams 10/01/23 07:22 Completed THORACOLUMBAR SPINE Stat Exams 10/01/23 07:31 Taken CBC W DIFF Stat Lab 10/01/23 07:10 Completed CK-Creatinine Phosphokinase Stat Lab 10/01/23 07:10 Completed CMP Stat Lab 10/01/23 07:10 Completed Lactic Acid Stat Lab 10/01/23 07:40 Completed Lactic Acid Stat Lab 10/01/23 09:43 Completed TROPONIN Q4H Lab 10/01/23 07:10 Completed TROPONIN Q4H Lab 10/01/23 11:30 Ordered TROPONIN Q4H Lab 10/01/23 15:30 Ordered UA W/RFX UR CULTURE Stat Lab 10/01/23 07:26 Completed Medication Summary Generic Name Dose Route Start Last Admin Trade Name Mac PRN Reason Stop Dose Admin Sodium Chloride 1,000 mls @ 999 mls/hr 10/01/23 09:31 10/01/23 09:55 Sodium Chloride 0.9% 1000 Ml IV 10/01/23 10:31 999 mls/hr .Q1H1M STA Administration Discontinued Medications Generic Name Dose Route Start Last Admin Trade Name Mac PRN Reason Stop Dose Admin Sodium Chloride 1,000 mls @ 999 mls/hr 10/01/23 07:22 10/01/23 08:39 Sodium Chloride 0.9% 1000 Ml IV 10/01/23 08:22 Infused .Q1H1M STA Infusion Sodium Chloride Confirm 10/01/23 07:28 Sodium Chloride 0.9% 1000 Ml Administered 10/01/23 07:29 Dose 1,000 mls @ ud .ROUTE .STK-MED ONE Ceftriaxone Sodium 1 gm in 100 mls @ 200 mls/hr 10/01/23 08:45 10/01/23 09:46 Rocephin 1 Gm / 100 Ml Nacl IV 10/01/23 09:14 Infused STAT ONE Infusion Ceftriaxone Sodium Confirm 10/01/23 08:52 Rocephin 1 Gm / 100 Ml Nacl Administered 10/01/23 08:53 Dose 1 gm in 100 mls @ ud IV .STK-MED ONE Sodium Chloride Confirm 10/01/23 09:52 Sodium Chloride 0.9% 1000 Ml Administered 10/01/23 09:53 Dose 1,000 mls @ ud .ROUTE .STK-MED ONE Lab/Rad Data: Laboratory Result Diagrams 10/01/23 07:10 10/01/23 07:10 Laboratory Results 10/01/23 10/01/23 10/01/23 Range/Units 09:43 07:40 07:26 WBC (4.0-10.5) x10^3/uL RBC (4.1-5.6) x10^6/uL Hgb (12.5-18.0) g/dL Hct (42-50) % MCV (78-100) fL MCH (26-32) pg MCHC (32-36) g/dL RDW (11.5-14.0) % Plt Count (150-450) x10^3/uL MPV (7.5-11.0) fL Gran % (36.0-66.0) % Immature Gran % (Auto) (0.00-0.4) % Nucleat RBC Rel Count (0.00-0.1) % Eos # (Auto) (0-0.5) x10^3/uL Immature Gran # (Auto) (0.00-0.03) x10^3u/L Absolute Lymphs (auto) (1.0-4.6) x10^3/uL Absolute Monos (auto) (0.0-1.3) x10^3/uL Absolute Nucleated RBC (0.00-0.01) x10^3u/L Lymphocytes % (24.0-44.0) % Monocytes % (0.0-12.0) % Eosinophils % (0.00-5.0) % Basophils % (0.0-0.4) % Absolute Granulocytes (1.4-6.9) x10^3/uL Basophils # (0-0.4) x10^3/uL Sodium (135-145) mmol/L Potassium (3.5-5.1) mmol/L Chloride (98-107) mmol/L Carbon Dioxide (22-30) mmol/L Anion Gap (5-15) MEQ/L BUN (9-20) mg/dL Creatinine (0.66-1.25) mg/dL Estimated GFR ML/MIN Glucose (74-106) mg/dL Lactic Acid 2.1 H 2.3 H (0.4-2.0) Calcium (8.4-10.2) mg/dL Total Bilirubin (0.2-1.3) mg/dL AST (17-59) U/L ALT (0-50) U/L Alkaline Phosphatase (38-126) U/L Creatine Kinase (55-170) U/L Troponin I (0.000-0.033) ng/mL Serum Total Protein (6.3-8.2) g/dL Albumin (3.5-5.0) g/dL Urine Color Yellow (Yellow) Urine Appearance Turbid A (Clear) Urine pH 8.0 (4.6-8.0) Ur Specific [place] 1.015 (1.005-1.030) Urine Protein Negative (Negative) Urine Glucose (UA) Negative (Negative) mg/dL Urine Ketones Negative (Negative) Urine Blood Negative (Negative) Urine Nitrite Negative (Negative) Urine Bilirubin Negative (Negative) Urine Urobilinogen 0.2 (0.2) mg/dL Ur Leukocyte Esterase Negative (Negative) U Hyaline Cast (Auto) NONE SEEN (0-2) /LPF Urine Microscopic RBC 0-2 (0-5) /HPF Urine Microscopic WBC 0-2 (0-5) /HPF Ur Epithelial Cells None Seen (None Seen) /HPF Urine Bacteria None Seen (None Seen) /HPF Urine Culture Reflexed NO (NO) 10/01/23 10/01/23 10/01/23 Range/Units 07:10 07:10 07:10 WBC 9.0 (4.0-10.5) x10^3/uL RBC 4.54 (4.1-5.6) x10^6/uL Hgb 13.2 (12.5-18.0) g/dL Hct 41.5 L (42-50) % MCV 91.4 (78-100) fL MCH 29.1 (26-32) pg MCHC 31.8 L (32-36) g/dL RDW 13.9 (11.5-14.0) % Plt Count 170 (150-450) x10^3/uL MPV 8.8 (7.5-11.0) fL Gran % 80.7 H (36.0-66.0) % Immature Gran % (Auto) 0.3 (0.00-0.4) % Nucleat RBC Rel Count 0.0 (0.00-0.1) % Eos # (Auto) 0.02 (0-0.5) x10^3/uL Immature Gran # (Auto) 0.03 (0.00-0.03) x10^3u/L Absolute Lymphs (auto) 1.01 (1.0-4.6) x10^3/uL Absolute Monos (auto) 0.65 (0.0-1.3) x10^3/uL Absolute Nucleated RBC 0.00 (0.00-0.01) x10^3u/L Lymphocytes % 11.2 L (24.0-44.0) % Monocytes % 7.2 (0.0-12.0) % Eosinophils % 0.2 (0.00-5.0) % Basophils % 0.4 (0.0-0.4) % Absolute Granulocytes 7.25 H (1.4-6.9) x10^3/uL Basophils # 0.04 (0-0.4) x10^3/uL Sodium 139 (135-145) mmol/L Potassium 3.8 (3.5-5.1) mmol/L Chloride 107 (98-107) mmol/L Carbon Dioxide 23 (22-30) mmol/L Anion Gap 12.3 (5-15) MEQ/L BUN 21 H (9-20) mg/dL Creatinine 0.95 (0.66-1.25) mg/dL Estimated GFR 89.9 ML/MIN Glucose 163 H (74-106) mg/dL Lactic Acid (0.4-2.0) Calcium 9.2 (8.4-10.2) mg/dL Total Bilirubin 0.70 (0.2-1.3) mg/dL AST 23 (17-59) U/L ALT 18 (0-50) U/L Alkaline Phosphatase 104 (38-126) U/L Creatine Kinase 128 (55-170) U/L Troponin I < 0.012 (0.000-0.033) ng/mL Serum Total Protein 6.8 (6.3-8.2) g/dL Albumin 3.8 (3.5-5.0) g/dL Urine Color (Yellow) Urine Appearance (Clear) Urine pH (4.6-8.0) Ur Specific [place] (1.005-1.030) Urine Protein (Negative) Urine Glucose (UA) (Negative) mg/dL Urine Ketones (Negative) Urine Blood (Negative) Urine Nitrite (Negative) Urine Bilirubin (Negative) Urine Urobilinogen (0.2) mg/dL Ur Leukocyte Esterase (Negative) U Hyaline Cast (Auto) (0-2) /LPF Urine Microscopic RBC (0-5) /HPF Urine Microscopic WBC (0-5) /HPF Ur Epithelial Cells (None Seen) /HPF Urine Bacteria (None Seen) /HPF Urine Culture Reflexed (NO) - Progress Progress: improved Progress Note: 10/01/23 08:26 labs grossly normal - no suggestion of acute infection CT head negative for acute hemorrhage pelvic imaging pending pt resting comfortably on re-examination 10/01/23 08:44 RLL pneumonia found on xray - will give dose of IV rocephin 10/01/23 08:52 Pt has not met SIRS criteria, no indication for high volume fluid resuscitation or broad spec abx pending hip xray read 10/01/23 09:29 pelvis xray: 1. No acute osseous abnormality seen in the pelvis and right hip joint. 2. Osteopenia and moderate to severe osteoarthritis in both hip joints. 3. Both hip joints are deformed possible AVM cannot be excluded, needs clinical correlation. 4. Bilateral sacroiliitis. L spine xray showed not acute fracture plan for admission to hospital in setting of mild hypotension, RLL pneumonia 10/01/23 10:24 discussed admission for observation w/ hospitalist Dr Chavez who accepts Will see patient in: hospital (observation) Counseled pt/family regarding: lab results, diagnosis, need for follow-up, rad results Medical Desision Making - Discussion of managment Care discussed with:: hospitalist Reviewed:: Test results Agreed on:: place in obs Will see patient: in hospital - Diagnostic Testing Diagnostic test were ordered, analyzed, and reviewed by me: Yes Radiological Interpretation: Interpreted by me, Reviewed by me, Teleradiologist Report - Risk of complications The pt has a high risk of morbidity or mortality based on: Decision regarding hospitilization or escalation of hosp level of care - Departure Departure Disposition: Observation Clinical Impression: Right lower lobe pneumonia Qualifiers: Pneumonia type: due to unspecified organism Qualified Code(s): J18.9 - Pneumonia, unspecified organism Hypotension Qualifiers: Hypotension type: unspecified hypotension type Qualified Code(s): I95.9 - Hypotension, unspecified Fall Qualifiers: Encounter type: initial encounter Qualified Code(s): W19.XXXA - Unspecified fall, initial encounter Condition: Stable Critical Care Time: No Referrals: TERENCE GIBBS MD [Primary Care Provider] - Follow up/PCP as directed
[2023-10-01] MEDS ORDERED: Sodium Chloride 0.9% 1000 ML 1,000 ML ONE ×2 (07:28→09:52)
[2023-10-01] MEDS: Sodium Chloride 0.9% 1000 ML 1,000 ML IV STA ×2 (07:29→09:55)
[2023-10-01 07:33] LABS: Absolute Neutrophil Ct (ANC) 7.25 x10^3/uL (1.4-6.9); BASOPHIL % 0.4 % (0.0-0.4); Basophil (Absolute #) 0.04 x10^3/uL (0-0.4); Eosinophil % 0.2 % (0.00-5.0); Eosinophil (Absolute #) 0.02 x10^3/uL (0-0.5); Hematocrit 41.5 % (42-50); Hemoglobin 13.2 g/dL (12.5-18.0); IMMATURE GRAN # 0.03 x10^3u/L (0.00-0.03); IMMATURE GRAN % 0.3 % (0.00-0.4); Lymphocyte (Absolute #) 1.01 x10^3/uL (1.0-4.6); Lymphocytes % 11.2 % (24.0-44.0); Mean Cell Volume 91.4 fL (78-100); Mean Corpuscular Hemoglobin 29.1 pg (26-32); Mean Corpuscular Hgb Concent. 31.8 g/dL (32-36); Mean Platelet Volume 8.8 fL (7.5-11.0); Monocyte (Absolute #) 0.65 x10^3/uL (0.0-1.3); Monocytes % 7.2 % (0.0-12.0); Neutrophil % 80.7 % (36.0-66.0); Platelet Count 170 x10^3/uL (150-450); Red Blood Count 4.54 x10^6/uL (4.1-5.6); Red Cell Distribution Width 13.9 % (11.5-14.0)
[2023-10-01 07:38] LABS: Appearance Turbid (Clear); Bacteria None Seen /HPF (None Seen); Bilirubin Negative (Negative); Blood Negative (Negative); Epithelial Cells None Seen /HPF (None Seen); Glucose, Urine Negative (Negative); Hyaline Casts NONE SEEN /LPF (0-2); Ketones Negative (Negative); Leukocyte Esterase Negative (Negative); Nitrite Negative (Negative); Protein,Urine Dip Negative (Negative); RBC 0-2 /HPF (0-5); Specific Gravity 1.015 (1.005-1.030); Urobilinogen 0.2 mg/dL (0.2); WBC 0-2 /HPF (0-5)
[2023-10-01 07:39] LABS: ALBUMIN 3.8 g/dL (3.5-5.0); ANION GAP 12.3 MEQ/L (5-15); BILIRUBIN,TOTAL 0.7 mg/dL (0.2-1.3); Calcium 9.2 mg/dL (8.4-10.2); Creatinine 1 0.95 mg/dL (0.66-1.25); EST GLOMERULAR FILTRATION RATE 89.9 ML/MIN; Potassium 3.8 mmol/L (3.5-5.1); Total Protein 6.8 g/dL (6.3-8.2)
[2023-10-01 07:41] LABS: ADD URINE CULTURE? NO (NO)
[2023-10-01] MEDS ORDERED: ROCEPHIN 1 GM / 100 ML NaCl 1 GM/100 ML IVPB IV ONE (08:52)
[2023-10-01] MEDS: ROCEPHIN 1 GM / 100 ML NaCl 1 GM/100 ML IVPB IV ONE (08:53)
--- NOTE | 2023-10-01 08:55 | XRAY ---
CLINICAL HISTORY: fall COMPARISON: None. TECHNIQUE: X-ray pelvis showing AP view and X-ray of the right hip showing AP and lateral views (2 views). FINDINGS: No acute fracture or dislocation is seen. Generalized reduced bone density. Moderate to severe degenerative changes are seen in the right hip joint as evident by osteophytes, reduced right hip joint space, subchondral cystic changes and sclerosis. Moderate to severe degenerative changes are also seen in the left hip joint. Both hip joints are deformed possible AVM cannot be excluded, needs clinical correlation. Bilateral sacroiliitis seen. Moderate degenerative changes are seen in the lumbar spine. Soft tissues appear unremarkable. IMPRESSION: 1. No acute osseous abnormality seen in the pelvis and right hip joint. 2. Osteopenia and moderate to severe osteoarthritis in both hip joints. 3. Both hip joints are deformed possible AVM cannot be excluded, needs clinical correlation. 4. Bilateral sacroiliitis. DISCLAIMER:A subtle bone abnormality or fracture may not be readily apparent on x-rays, thus clinical correlation and further imaging including follow up CT, MRI, or follow up x-rays are advised as needed Electronically Signed by: Ekta Storey MD. (10/01/2023 08:51:46 EDT)
[2023-10-01] MEDS ORDERED: TYLENOL 325 MG PO PRN ×2 (12:26→12:59)
--- NOTE | 2023-10-01 12:30 | PCM.HP ---
History of Present Illness - Chief Complaint Chief Complaint: pneumonia Date: 10/01/23 History of Present Illness: Mr. Joya is a 63yo m with PMHX of mIgraines, peripheral neuropathy, cataracts, CAD, HTN, CT, asthma, COPD, emphysema, type II DM, arthritis, DDD, OA, GERD, anxiety and depression. He lives at a longterm. He has had cardiac stents placed and takes clopidogrel. He presented via EMS to ER after being found on floor by longterm staff. EMS reports longterm saw pt in his bed at 0400 so fall occurred between 0400 and 0600. Pt is AxO x 3 on exam, was slow to answer questions in ER. Pt complains of low back pain that he states is chronic. Pt reports he does not know how he ended up on the floor. Pt also complains of some right hip discomfort. XR shows no acute concerns. CT head negative for acute concerns as well. SPine XR pending. Temp 100.2F orally on arrival. CXR shows RLL pneumonia. Pt is septic with LA of 2.3 on admission. NS 1 L bouls x2 gave in ER. Repat LA 2.1 at 9:43. Pt is hypotensive. He is on baseline oxygen of 4lNC @ 94% . Rocephin started for pneumonia in ER- will continue. He denies CP, Abd. pain, N/V/D. - Review of Systems Constitutional: No Fever, No Chills Eyes: No Symptoms Ears, Nose, & Throat: No Symptoms Respiratory: Short Of Breath, No Cough Cardiac: No Chest Pain, No Edema, No Syncope Abdominal/Gastrointestinal: No Abdominal Pain, No Nausea, No Vomiting, No Diarrhea Genitourinary Symptoms: No Dysuria Musculoskeletal: No Back Pain, No Neck Pain Skin: Other (pale), No Rash Neurological: Other (slow to answer questions), No Dizziness, No Focal Weakness, No Sensory Changes Psychological: No Symptoms Endocrine: No Symptoms Hematologic/Lymphatic: No Symptoms Immunological/Allergic: No Symptoms Medications & Allergies Home Medications: Home Medication List Cholecalciferol (Vitamin D3) [Vitamin D3] 5,000 unit PO DAILY 01/04/16 [History Confirmed 10/01/23] Clopidogrel Bisulfate [PLAVIX Tablet] 75 mg PO DAILY 01/04/16 [History Confirmed 10/01/23] Famotidine 40 mg PO BID 01/04/16 [History Confirmed 10/01/23] Morphine Sulfate [Morphine Sulfate ER] 60 mg PO TID 01/04/16 [History Confirmed 10/01/23] Ranolazine 500 MG [Ranexa 500 MG] 500 mg PO BID 01/04/16 [History Confir med 10/01/23] Baclofen 10 mg [Lioresal 10 mg] 10 mg PO BID 12/20/22 [History Confirmed 10/01/23] Calcium Carbonate/Vitamin D3 [Calcium 600-Vit D3 200 Tablet] 1 each PO DAILY 12/20/22 [History Confirmed 10/01/23] Diazepam [Valium] 2 mg PO BID 12/20/22 [History Confirmed 10/01/23] Fluticasone Propionate [Flovent Diskus] 1 spray NS DAILY 12/20/22 [History Confirmed 10/01/23] Fluticasone/Umeclidin/Vilanter [Trelegy Ellipta 200-62.5-25] 1 inh PO DAILY 12/20/22 [History Confirmed 10/01/23] Folic Acid 1 mg [Folate 1 mg] 1 mg PO DAILY 12/20/22 [History Confirmed 10/01/23] Linagliptin [Tradjenta] 5 mg PO DAILY 12/20/22 [History Confirmed 10/01/23] Montelukast Sodium 10 mg [Singulair 10 MG] 10 mg PO QHS 12/20/22 [History Confirmed 10/01/23] PANTOPRAZOLE 40 mg Tablet [Protonix 40MG Tablet] 40 mg PO BID 12/20/22 [History Confirmed 10/01/23] Sertraline HCl 50 mg PO DAILY 12/20/22 [History Confirmed 10/01/23] Sucralfate 1 gm [Carafate 1 GM] 1 gm PO BID 12/20/22 [History Confirmed 10/01/23] guaiFENesin [Mucus ER] 600 mg PO Q12H 12/20/22 [History Confirmed 10/01/23] Acetaminophen 325 mg [Tylenol 325 mg] 650 mg PO Q4H PRN PRN 08/24/23 [History Confirmed 10/01/23] Albuterol Common Canister [Ventolin Common Canister] 2 puff IH Q4H PRN PRN 08/24/23 [History Confirmed 10/01/23] Calcium Carbonate [Alexis-Gest] 1,000 mg PO Q6H PRN PRN 08/24/23 [History Confirmed 10/01/23] Carbamide Peroxide [Debrox] 4 drop OT Q12H PRN PRN 08/24/23 [History Confirmed 10/01/23] Carboxymethylcellulose Sodium [Refresh Liquigel] 2 drop OP QID 08/24/23 [History Confirmed 10/01/23] Gabapentin 400 mg PO QID 08/24/23 [History Confirmed 10/01/23] Guaifenesin/Dextromethorphan [Robitussin Cveuh-Pubvg-Swev Dm] 1 each PO Q4H PRN PRN 08/24/23 [History Confirmed 10/01/23] Insulin Aspart [Insulin Aspart Flexpen] 1 unit SQ UD 08/24/23 [History Confirmed 10/01/23] Insulin Detemir [Levemir] 50 unit SQ BID 08/24/23 [History Confirmed 10/01/23] Lanolin Alcohol/Mo/W.pet/[place] [Eucerin Cream] 1 gm TP Q8H PRN PRN 08/24/23 [History Confirmed 10/01/23] Latanoprost [Xalatan] 1 drop OP QHS 08/24/23 [History Confirmed 10/01/23] Loperamide HCl 2 mg [Imodium 2 mg] 2 mg PO Q6H PRN PRN 08/24/23 [History Confirmed 10/01/23] Mag Hydrox/Aluminum Hyd/Simeth [Mylanta Maximum Strength Liq] 10 ml PO QID 08/24/23 [History Confirmed 10/01/23] Melatonin 10 mg PO QHS 08/24/23 [History Confirmed 10/01/23] Menthol [Cough Drops] 5.8 mg MM Q4H PRN PRN 08/24/23 [History Confirmed 10/01/23] Metoclopramide HCl 5 mg PO BID 08/24/23 [History Confirmed 10/01/23] Mineral Oil/Hydrophil Petrolat [Aquaphor Healing Ointment] 1 applic TOP Q12H PRN PRN 08/24/23 [History Confirmed 10/01/23] Nitroglycerin 0.4 mg Tablet [Nitrostat 0.4 MG Tablet] 0.4 mg SL UD 08/24/23 [History Confirmed 10/01/23] Propranolol HCl 60 mg PO BID 08/24/23 [History Confirmed 10/01/23] Rosuvastatin Calcium 20 mg PO QHS 08/24/23 [History Confirmed 10/01/23] Sodium Chloride Nasal [place] [OCEAN Nasal [place]] 2 spray NS Q4H PRN PRN 08/24/23 [History Confirmed 10/01/23] Sodium Chloride/Aloe Vera [Saline Nasal Gel] 1 applic NS Q2H/PRN PRN 08/24/23 [History Confirmed 10/01/23] Topiramate [Topamax] 75 mg PO BID 08/24/23 [History Confirmed 10/01/23] Zinc Gluconate [Zinc] 50 mg PO DAILY 08/24/23 [History Confirmed 10/01/23] levalbuterol HCl [Xopenex 1.25 MG/0.5 ML UD NEBULE] 2 puff IH BID 08/24/23 [History Confirmed 10/01/23] Allergies/Adverse Reactions: Allergies Allergy/AdvReac Type Severity Reaction Status Date / Time amitriptyline HCl Allergy Severe Rapid Verified 10/01/23 06:54 [From Elavil] Heart Beat tramadol HCl [From Ultram] Allergy Severe Verified 10/01/23 06:54 divalproex sodium Allergy Verified 10/01/23 06:54 [From Depakote] alprazolam [From Xanax] AdvReac Severe Verified 10/01/23 06:54 - Past Medical History Past Medical History: Yes Neurological History: Migraines, Peripheral Neuropathy ENT History: Cataracts Cardiac History: Coronary Artery Disease, Hypertension, Myocardial Infarction (CT) (x 3) Respiratory History: Asthma, COPD, Emphysema Endocrine Medical History: Diabetes Type II Musculoskelatal History: Arthritis, Degenerative Disk Disease, Osteoarthritis, Other GI Medical History: GERD History: No Pertinent History Pyscho-Social History: Anxiety, Depression Male Reproductive Disorders: No Pertinent History Comment: carpel tunnel - Past Surgical History Past Surgical History: Yes Neuro Surgical History: No Pertinent History Cardiac History: Cardiac Stent Respiratory Surgery: Other GI Surgical History: No Pertinent History Genitourinary Surgical Hx: No Pertinent History Musculskeletal Surgical Hx: Other Male Surgical History: No Pertinent History Other Surgical History: finger surgery, Significant Family History: heart disease, diabetes, hypertension - Social History Smoking Status: Former smoker How long have you smoked: 40 years Exposure to second hand smoke: No Alcohol: None Drug Use: none - Social Determinants of Health Will the patient participate in the screening: Yes Do you worry about a steady place to live?: No Do you have any problems with any of the following?: No known problems In the past 12 months,have you had to go without utilities?: No Have you or anyone in your house had to go without enough: No Transportation Issues: No Has anyone in your support network made you feel unsafe?: No Does the patient want assistance with any of the above?: No Comment: Patient lives in [facility] - Physical Exam Vital Signs: Vital Signs - 24 hr Temp Pulse Resp BP BP Pulse Ox 10/01/23 12:00 93 H 8 L 88/55 91 L 10/01/23 11:30 93 H 9 L 87/53 91 L 10/01/23 11:00 95 H 16 88/57 93 L 10/01/23 10:30 94 H 14 89/49 93 L 10/01/23 10:26 95 10/01/23 10:00 96 H 15 103/59 93 L 10/01/23 09:30 95 H 15 86/55 10/01/23 09:17 94 H 12 115/63 97 10/01/23 09:00 94 H 10 L 80/53 95 10/01/23 08:31 95 H 16 107/60 94 L 10/01/23 08:30 100 H 17 82/60 94 L 10/01/23 08:27 98 H 16 109/69 94 L 10/01/23 08:17 101 H 19 109/69 95 10/01/23 08:15 104 H 12 97 10/01/23 07:30 102/69 10/01/23 07:03 103 H 17 93/66 91 L 10/01/23 06:56 100.2 F 104 H 20 95/70 98 General Appearance: no apparent distress, alert, obese Neurologic Exam: alert, oriented x 3, cooperative, normal mood/affect, nml cerebellar function, nml station & gait, sensation nml, other (slow to answer questions, states he feel foggy.), No motor deficits Eye Exam: PERRL/EOMI, eyes nml inspection Ears, Nose, Throat Exam: normal ENT inspection, TMs normal, pharynx normal, moist mucous membranes Neck Exam: normal inspection, non-tender, supple, full range of motion Respiratory Exam: diminished breath sounds (BLLL), No respiratory distress Cardiovascular Exam: regular rate/rhythm, normal heart sounds, normal peripheral pulses, tachycardia Gastrointestinal/Abdomen Exam: soft, normal bowel sounds, No tenderness, No mass Back Exam: decreased range of motion (lumbar- chronic), No CVA tenderness, No vertebral tenderness Extremity Exam: normal inspection, normal range of motion, pelvis stable Skin Exam: warm, dry, pale, No rash Lymphatic Exam: No adenopathy Results - Labs Lab/Micro Results: Lab Results-Last 24 Hours 10/01/23 10/01/23 10/01/23 Range/Units 07:10 07:10 07:10 WBC 9.0 (4.0-10.5) x10^3/uL RBC 4.54 (4.1-5.6) x10^6/uL Hgb 13.2 (12.5-18.0) g/dL Hct 41.5 L (42-50) % MCV 91.4 (78-100) fL MCH 29.1 (26-32) pg MCHC 31.8 L (32-36) g/dL RDW 13.9 (11.5-14.0) % Plt Count 170 (150-450) x10^3/uL MPV 8.8 (7.5-11.0) fL Gran % 80.7 H (36.0-66.0) % Immature Gran % (Auto) 0.3 (0.00-0.4) % Nucleat RBC Rel Count 0.0 (0.00-0.1) % Eos # (Auto) 0.02 (0-0.5) x10^3/uL Immature Gran # (Auto) 0.03 (0.00-0.03) x10^3u/L Absolute Lymphs (auto) 1.01 (1.0-4.6) x10^3/uL Absolute Monos (auto) 0.65 (0.0-1.3) x10^3/uL Absolute Nucleated RBC 0.00 (0.00-0.01) x10^3u/L Lymphocytes % 11.2 L (24.0-44.0) % Monocytes % 7.2 (0.0-12.0) % Eosinophils % 0.2 (0.00-5.0) % Basophils % 0.4 (0.0-0.4) % Absolute Granulocytes 7.25 H (1.4-6.9) x10^3/uL Basophils # 0.04 (0-0.4) x10^3/uL Sodium 139 (135-145) mmol/L Potassium 3.8 (3.5-5.1) mmol/L Chloride 107 (98-107) mmol/L Carbon Dioxide 23 (22-30) mmol/L Anion Gap 12.3 (5-15) MEQ/L BUN 21 H (9-20) mg/dL Creatinine 0.95 (0.66-1.25) mg/dL Estimated GFR 89.9 ML/MIN Glucose 163 H (74-106) mg/dL Lactic Acid (0.4-2.0) Calcium 9.2 (8.4-10.2) mg/dL Total Bilirubin 0.70 (0.2-1.3) mg/dL AST 23 (17-59) U/L ALT 18 (0-50) U/L Alkaline Phosphatase 104 (38-126) U/L Creatine Kinase 128 (55-170) U/L Troponin I < 0.012 (0.000-0.033) ng/mL Serum Total Protein 6.8 (6.3-8.2) g/dL Albumin 3.8 (3.5-5.0) g/dL Urine Color (Yellow) Urine Appearance (Clear) Urine pH (4.6-8.0) Ur Specific [place] (1.005-1.030) Urine Protein (Negative) Urine Glucose (UA) (Negative) mg/dL Urine Ketones (Negative) Urine Blood (Negative) Urine Nitrite (Negative) Urine Bilirubin (Negative) Urine Urobilinogen (0.2) mg/dL Ur Leukocyte Esterase (Negative) U Hyaline Cast (Auto) (0-2) /LPF Urine Microscopic RBC (0-5) /HPF Urine Microscopic WBC (0-5) /HPF Ur Epithelial Cells (None Seen) /HPF Urine Bacteria (None Seen) /HPF Urine Culture Reflexed (NO) 10/01/23 10/01/23 10/01/23 Range/Units 07:26 07:40 09:43 WBC (4.0-10.5) x10^3/uL RBC (4.1-5.6) x10^6/uL Hgb (12.5-18.0) g/dL Hct (42-50) % MCV (78-100) fL MCH (26-32) pg MCHC (32-36) g/dL RDW (11.5-14.0) % Plt Count (150-450) x10^3/uL MPV (7.5-11.0) fL Gran % (36.0-66.0) % Immature Gran % (Auto) (0.00-0.4) % Nucleat RBC Rel Count (0.00-0.1) % Eos # (Auto) (0-0.5) x10^3/uL Immature Gran # (Auto) (0.00-0.03) x10^3u/L Absolute Lymphs (auto) (1.0-4.6) x10^3/uL Absolute Monos (auto) (0.0-1.3) x10^3/uL Absolute Nucleated RBC (0.00-0.01) x10^3u/L Lymphocytes % (24.0-44.0) % Monocytes % (0.0-12.0) % Eosinophils % (0.00-5.0) % Basophils % (0.0-0.4) % Absolute Granulocytes (1.4-6.9) x10^3/uL Basophils # (0-0.4) x10^3/uL Sodium (135-145) mmol/L Potassium (3.5-5.1) mmol/L Chloride (98-107) mmol/L Carbon Dioxide (22-30) mmol/L Anion Gap (5-15) MEQ/L BUN (9-20) mg/dL Creatinine (0.66-1.25) mg/dL Estimated GFR ML/MIN Glucose (74-106) mg/dL Lactic Acid 2.3 H 2.1 H (0.4-2.0) Calcium (8.4-10.2) mg/dL Total Bilirubin (0.2-1.3) mg/dL AST (17-59) U/L ALT (0-50) U/L Alkaline Phosphatase (38-126) U/L Creatine Kinase (55-170) U/L Troponin I (0.000-0.033) ng/mL Serum Total Protein (6.3-8.2) g/dL Albumin (3.5-5.0) g/dL Urine Color Yellow (Yellow) Urine Appearance Turbid A (Clear) Urine pH 8.0 (4.6-8.0) Ur Specific [place] 1.015 (1.005-1.030) Urine Protein Negative (Negative) Urine Glucose (UA) Negative (Negative) mg/dL Urine Ketones Negative (Negative) Urine Blood Negative (Negative) Urine Nitrite Negative (Negative) Urine Bilirubin Negative (Negative) Urine Urobilinogen 0.2 (0.2) mg/dL Ur Leukocyte Esterase Negative (Negative) U Hyaline Cast (Auto) NONE SEEN (0-2) /LPF Urine Microscopic RBC 0-2 (0-5) /HPF Urine Microscopic WBC 0-2 (0-5) /HPF Ur Epithelial Cells None Seen (None Seen) /HPF Urine Bacteria None Seen (None Seen) /HPF Urine Culture Reflexed NO (NO) 10/01/23 Range/Units 11:35 WBC (4.0-10.5) x10^3/uL RBC (4.1-5.6) x10^6/uL Hgb (12.5-18.0) g/dL Hct (42-50) % MCV (78-100) fL MCH (26-32) pg MCHC (32-36) g/dL RDW (11.5-14.0) % Plt Count (150-450) x10^3/uL MPV (7.5-11.0) fL Gran % (36.0-66.0) % Immature Gran % (Auto) (0.00-0.4) % Nucleat RBC Rel Count (0.00-0.1) % Eos # (Auto) (0-0.5) x10^3/uL Immature Gran # (Auto) (0.00-0.03) x10^3u/L Absolute Lymphs (auto) (1.0-4.6) x10^3/uL Absolute Monos (auto) (0.0-1.3) x10^3/uL Absolute Nucleated RBC (0.00-0.01) x10^3u/L Lymphocytes % (24.0-44.0) % Monocytes % (0.0-12.0) % Eosinophils % (0.00-5.0) % Basophils % (0.0-0.4) % Absolute Granulocytes (1.4-6.9) x10^3/uL Basophils # (0-0.4) x10^3/uL Sodium (135-145) mmol/L Potassium (3.5-5.1) mmol/L Chloride (98-107) mmol/L Carbon Dioxide (22-30) mmol/L Anion Gap (5-15) MEQ/L BUN (9-20) mg/dL Creatinine (0.66-1.25) mg/dL Estimated GFR ML/MIN Glucose (74-106) mg/dL Lactic Acid (0.4-2.0) Calcium (8.4-10.2) mg/dL Total Bilirubin (0.2-1.3) mg/dL AST (17-59) U/L ALT (0-50) U/L Alkaline Phosphatase (38-126) U/L Creatine Kinase (55-170) U/L Troponin I < 0.012 (0.000-0.033) ng/mL Serum Total Protein (6.3-8.2) g/dL Albumin (3.5-5.0) g/dL Urine Color (Yellow) Urine Appearance (Clear) Urine pH (4.6-8.0) Ur Specific [place] (1.005-1.030) Urine Protein (Negative) Urine Glucose (UA) (Negative) mg/dL Urine Ketones (Negative) Urine Blood (Negative) Urine Nitrite (Negative) Urine Bilirubin (Negative) Urine Urobilinogen (0.2) mg/dL Ur Leukocyte Esterase (Negative) U Hyaline Cast (Auto) (0-2) /LPF Urine Microscopic RBC (0-5) /HPF Urine Microscopic WBC (0-5) /HPF Ur Epithelial Cells (None Seen) /HPF Urine Bacteria (None Seen) /HPF Urine Culture Reflexed (NO) - Radiology Impressions Radiology Exams & Impressions: Radiology Procedures Category Date Time Status CHEST 1 VIEW (PORTABLE) Stat Exams 10/01/23 07:22 Taken HEAD WITHOUT CONTRAST [CT] Stat Exams 10/01/23 06:45 Completed HIP UNI (2V) INCL PEL IF DONE Stat Exams 10/01/23 07:22 Completed THORACOLUMBAR SPINE Stat Exams 10/01/23 07:31 Taken Assessment/Plan (1) Sepsis Current Visit: Yes Status: Acute Assessment & Plan: - + hypotension, HR > 90, temp of 100.2 on admission, lactate > 2, + pneumonia - 2:2 RLL pneumonia - BCx2 - Lactic acid 2.3 @ 07:40, 2.1@ 09:43- trend- 1L fluid bolus x2 gave in ER - Continue IVF - tele (2) Fall Current Visit: Yes Status: Acute Qualifiers: Encounter type: initial encounter Qualified Code(s): W19.XXXA - Unspecified fall, initial encounter Assessment & Plan: - unknown cause of fall - Possibly 2:2 [address] - [address] head 09/30 IMPRESSION: 1. No intracranial hemorrhage, established major territorial infarct, or mass effect was noted. 2. Age-matched involutional brain changes. 3. No interval changes. - HIP XR 09/30 IMPRESSION: 1. No acute osseous abnormality seen in the pelvis and right hip joint. 2. Osteopenia and moderate to severe osteoarthritis in both hip joints. 3. Both hip joints are deformed possible AVM cannot be excluded, needs clinical correlation. 4. Bilateral sacroiliitis. - CXR and lumbar spine XR's pending radiology reading Code(s): W19.XXXA - UNSPECIFIED FALL, INITIAL ENCOUNTER (3) Hypotension Current Visit: Yes Status: Acute Qualifiers: Hypotension type: unspecified hypotension type Qualified Code(s): I95.9 - Hypotension, unspecified Assessment & Plan: - 2:2 sepsis from pneumonia - NS @ 100ml/hr - hold home narcotic pain and BP meds for now Code(s): I95.9 - HYPOTENSION, UNSPECIFIED (4) Right lower lobe pneumonia Current Visit: Yes Status: Acute Qualifiers: Pneumonia type: due to unspecified organism Qualified Code(s): J18.9 - Pneumonia, unspecified organism Assessment & Plan: - ceftriaxone and azithromycin - O2 at baseline 4LNC 94% - RT eval - IS - duonebs Code(s): J18.9 - PNEUMONIA, UNSPECIFIED ORGANISM (5) Acute exacerbation of chronic low back pain Current Visit: No Status: Acute Assessment & Plan: - tylenol for pain - heating pad if needed Code(s): M54.50 - LOW BACK PAIN, UNSPECIFIED; G89.29 - OTHER CHRONIC PAIN (6) Diabetes mellitus Current Visit: No Status: Chronic Qualifiers: Diabetes mellitus type: type 2 Diabetes mellitus 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 insulin use: with 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 use Diabetes mellitus complication status: without complication Qualified Code(s): E11.9 - Type 2 diabetes mellitus without complications; 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
[2023-10-01] MEDS: Zithromax 500 MG/ 250 ML NaCl Premix 500 MG/250 ML IVPB IV SCH (12:54)
[2023-10-01] MEDS: Sodium Chloride 0.9% 1000 ML 1,000 ML IV SCH (12:54)
[2023-10-01] MEDS ORDERED: DEXTROMETHORPHAN PO PRN (12:59)
[2023-10-01] MEDS ORDERED: GUAIFENESIN PO PRN (12:59)
[2023-10-01] MEDS ORDERED: IMODIUM 2 MG PO PRN (12:59)
[2023-10-01] MEDS ORDERED: [UNRECOGNIZED DRUG - OTHER] TOP PRN (12:59)
[2023-10-01] MEDS ORDERED: Ear Wax Drops OT PRN (12:59)
[2023-10-01] MEDS ORDERED: SODIUM CHLORIDE NS PRN (12:59)
[2023-10-01] MEDS ORDERED: MENTHOL 5.8 MG MM PRN (12:59)
[2023-10-01] MEDS ORDERED: ALOE VERA NS PRN (12:59)
[2023-10-01] MEDS ORDERED: [UNRECOGNIZED DRUG - OTHER] TP PRN (12:59)
[2023-10-01] MEDS ORDERED: CALCIUM CARBONATE 200 MG PO PRN (12:59)
[2023-10-01] MEDS ORDERED: [UNRECOGNIZED DRUG - OTHER] PO PRN (12:59)
[2023-10-01] MEDS ORDERED: VENTOLIN COMMON CANISTER IH PRN (12:59)
[2023-10-01] MEDS ORDERED: OCEAN Nasal Spray NS PRN (12:59)
[2023-10-01] MEDS ORDERED: INSULN SQ SCH (13:00)
[2023-10-01] MEDS ORDERED: INSULIN ASPART 100 UNIT/ML SQ SCH (13:00)
[2023-10-01] MEDS ORDERED: Tums EX 750 MG PO PRN (13:53)
[2023-10-01] MEDS ORDERED: Sodium Chloride 3 ML UD NEBULES IH ONE (14:05)
[2023-10-01] MEDS: Xopenex 1.25 MG/0.5 ML UD NEBULE IH SCH (14:07)
[2023-10-01] MEDS ORDERED: AQUAPHOR OINTMENT 50 GM TP PRN (14:51)
[2023-10-01] MEDS ORDERED: HALLS COUGH DROPS 5.4 MG MM PRN (14:53)
[2023-10-01] MEDS ORDERED: DUONEB 0.5-3 MG/3 ml Neb IH SCH (15:00)
[2023-10-01] MEDS ORDERED: Eucerin Lotion (HYDROCERIN) TP PRN (15:06)
[2023-10-01] MEDS: MAALOX ES 30 ML UNIT DOSE PO SCH (15:12)
[2023-10-01] MEDS ORDERED: Robitussin-Dm Syrup PO PRN (15:12)
[2023-10-01] MEDS: Mucinex 600MG ER Tabs PO SCH (15:13)
[2023-10-01] MEDS: Neurontin PO SCH (15:14)
[2023-10-01] MEDS: TOPIRAMATE PO ONE (16:15)
[2023-10-01] MEDS: Artificial Tears 15 ML OP PRN (16:17)
[2023-10-01] MEDS: CARBOXYMETHYLCELLULOSE SODIUM OP SCH (16:32)
[2023-10-01] MEDS: Advair Hfa 115/21 Common canister IH SCH (18:41)
--- NOTE | 2023-10-01 19:46 | XRAY ---
Indication: Pain following fall. Comparison: None 3 view lumbar spine demonstrates 5 lumbar segments in normal alignment with osteopenia, mild/moderate multilevel thoracolumbar degenerative spondylosis greatest at L4-S1, and mild aortic calcifications. No other bony, articular, or soft tissue abnormalities.
--- NOTE | 2023-10-01 19:48 | XRAY ---
Indication: Pain following fall. Comparison: August 24, 2023 Portable chest demonstrates clearing left base pleural parenchymal opacity. Stable diffuse right lung infiltrate/atelectasis without consolidation or large effusion. Heart not enlarged. No new cardiopulmonary abnormalities.
[2023-10-01] MEDS: Lantus Insulin SQ SCH (20:29)
[2023-10-01] MEDS: Protonix 40MG Tablet PO SCH (20:29)
[2023-10-01] MEDS: MELATONIN PO SCH (20:30)
[2023-10-01] MEDS: LIORESAL 10 MG PO SCH (20:30)
[2023-10-01] MEDS: TOPIRAMATE PO SCH (20:30)
[2023-10-01] MEDS: Reglan 10 MG PO SCH (20:31)
[2023-10-01] MEDS: Inderal PO SCH (20:32)
[2023-10-01] MEDS: Ranexa 500 MG PO SCH (20:33)
[2023-10-01] MEDS: Carafate 1 GM PO SCH (20:33)
[2023-10-01] MEDS: Singulair 10 MG PO SCH (20:33)
[2023-10-01] MEDS: ZOCOR 20MG PO SCH (20:34)
[2023-10-01] MEDS: Pepcid 20 MG PO SCH (20:34)
[2023-10-01] MEDS: Xalatan OP SCH (20:35)
[2023-10-01] MEDS ORDERED: NON-FORMULARY ITEM (Insulin Detemir [Levemir] 100 UNIT/ML Vial) SQ SCH (22:00)
[2023-10-01] MEDS ORDERED: Xopenex 1.25 MG/0.5 ML UD NEBULE IH SCH (22:00)
[2023-10-01] MEDS ORDERED: NON-FORMULARY ITEM (Topiramate [Topamax] 25 MG Tablet) PO SCH (22:00)
[2023-10-01] MEDS ORDERED: NON-FORMULARY ITEM (Rosuvastatin Calcium [Rosuvastatin Calcium] 20 MG Tablet) PO SCH (22:00)
[2023-10-01] MEDS ORDERED: PROPRANOLOL HCL 60 MG PO SCH (22:00)
[2023-10-01] MEDS ORDERED: NON-FORMULARY ITEM (Famotidine [Famotidine] 40 MG Tablet) PO SCH (22:00)
[2023-10-01] MEDS ORDERED: NON-FORMULARY ITEM (Melatonin [Melatonin] 10 MG Tablet) PO SCH (22:00)
[2023-10-01] MEDS ORDERED: NON-FORMULARY ITEM (Metoclopramide Hcl [Metoclopramide Hcl] 5 MG Tablet) PO SCH (22:00)
[2023-10-02 06:16] LABS: Hemoglobin 11.9 g/dL (12.5-18.0); Mean Corpuscular Hemoglobin 28.8 pg (26-32); Mean Corpuscular Hgb Concent. 31.3 g/dL (32-36); Platelet Count 179 x10^3/uL (150-450); Red Blood Count 4.13 x10^6/uL (4.1-5.6); Red Cell Distribution Width 14.4 % (11.5-14.0); White Blood Count 14.7 x10^3/uL (4.0-10.5)
[2023-10-02 06:43] LABS: ALBUMIN 3.7 g/dL (3.5-5.0); ANION GAP 10.5 MEQ/L (5-15); BILIRUBIN,TOTAL 1.1 mg/dL (0.2-1.3); Calcium 8.8 mg/dL (8.4-10.2); Creatinine 1 0.77 mg/dL (0.66-1.25); EST GLOMERULAR FILTRATION RATE 100.6 ML/MIN; Potassium 3.6 mmol/L (3.5-5.1); Total Protein 6.8 g/dL (6.3-8.2)
[2023-10-02] MEDS ORDERED: Sodium Chloride 3 ML UD NEBULES IH ONE (07:05)
[2023-10-02] MEDS: Sodium Chloride 3 ML UD NEBULES IH PRN (07:07)
[2023-10-02] MEDS: Spiriva 18 Mcg/Cap Inhaler IH SCH (07:07)
[2023-10-02] MEDS: Sodium Bicarbonate 50 MEQ/50 ML VIAL*** 150 MEQ in Dextrose 5%/Water IV Soln. 1000 ML 1... IV SCH (09:28)
[2023-10-02] MEDS: ROCEPHIN 1 GM / 100 ML NaCl 1 GM/100 ML IVPB IV SCH (09:31)
[2023-10-02] MEDS: Flonase NASAL NS SCH (09:31)
[2023-10-02] MEDS: VITAMIN D PO SCH (09:34)
[2023-10-02] MEDS: Calcium 500MG W/Vit D Tablet PO SCH (09:35)
[2023-10-02] MEDS: FOLATE 1 MG PO SCH (09:35)
[2023-10-02] MEDS: PLAVIX Tablet PO SCH (09:36)
[2023-10-02] MEDS: Ms Contin 15 MG PO SCH (09:36)
[2023-10-02] MEDS: ZOLOFT 50 MG TABLET PO SCH (09:38)
[2023-10-02] MEDS: Zinc Gluconate 50 MG PO SCH (09:40)
[2023-10-02] MEDS ORDERED: NON-FORMULARY ITEM (Calcium Carbonate/Vitamin D3 [Calcium 600-Vit D3 200 Tablet] 1 EACH Ta PO SCH (10:00)
[2023-10-02] MEDS ORDERED: CHOLECALCIFEROL 5000 UNIT PO SCH (10:00)
[2023-10-02] MEDS ORDERED: NON-FORMULARY ITEM (Fluticasone/Umeclidin/Vilanter [Trelegy Ellipta 200-62.5-25] 1 EACH Bl PO SCH (10:00)
[2023-10-02] MEDS ORDERED: NON-FORMULARY ITEM (Zinc Gluconate 50 MG Tablet) PO SCH (10:00)
[2023-10-02] MEDS ORDERED: NON-FORMULARY ITEM (Fluticasone Propionate [Flovent Diskus] 50 MCG Blst.W.Dev) NS SCH (10:00)
--- NOTE | 2023-10-02 11:45 | PCM.NOTE ---
Date and Time: 10/02/23 1137 Subjective Assessment: 10/01/23 Mr. Joya is a 63yo m with PMHX of mIgraines, peripheral neuropathy, cataracts, CAD, HTN, HI, asthma, COPD, emphysema, type II DM, arthritis, DDD, OA, GERD, anxiety and depression. He lives at a group home. He has had cardiac stents placed and takes clopidogrel. He presented via EMS to ER after being found on floor by group home staff. EMS reports group home saw pt in his bed at 0400 so fall occurred between 0400 and 0600. Pt is AxO x 3 on exam, was slow to answer questions in ER. Pt complains of low back pain that he states is chronic. Pt reports he does not know how he ended up on the floor. Pt also complains of some right hip discomfort. XR shows no acute concerns. CT head negative for acute concerns as well. Spine XR pending. Temp 100.2F orally on arrival. CXR shows RLL pneumonia. Pt is septic with LA of 2.3 on admission. NS 1 L bouls x2 gave in ER. Repat LA 2.1 at 9:43. Pt is hypotensive. He is on baseline oxygen of 4lNC @ 94% . Rocephin started for pneumonia in ER- will continue. He denies CP, Abd. pain, N/V/D. 10/02/23 Pt resting in bed. He is pale in appearance. He states he is thinking clearer today. BP has improved. Morphine chronic pain medication restarted. Bicarb 18 today, 2:2 pneumonia, will start Bicarb gtt. Pt reports coughing up thick yellow sputum today. He is refusing telemetry and took off monitor, order discontinued. Continue antibiotics. He denies CP, dizziness, lightheadedness, Abd. pain, N/V/D. - Review of Systems Constitutional: No Fever, No Chills Eyes: No Symptoms Ears, Nose, & Throat: No Symptoms Respiratory: Cough (with thick yellow sputum production), Short Of Breath Cardiac: No Chest Pain, No Edema, No Syncope Abdominal/Gastrointestinal: No Abdominal Pain, No Nausea, No Vomiting, No Diarrhea Genitourinary Symptoms: No Dysuria Musculoskeletal: No Back Pain, No Neck Pain Skin: Other (pale, bruises on back and bottom today ), No Rash Neurological: No Dizziness, No Focal Weakness, No Sensory Changes Psychological: No Symptoms Endocrine: No Symptoms Hematologic/Lymphatic: No Symptoms Immunological/Allergic: No Symptoms Objective Exam General Appearance: no apparent distress, alert, obese Neurologic Exam: alert, oriented x 3, cooperative, normal mood/affect, nml cerebellar function, sensation nml, No motor deficits Skin Exam: warm, dry, pale, other (bruising on back and bottom showed up today from fall at [facility] yesterday) Eye Exam: PERRL, EOMI, eyes nml inspection Ears, Nose, Throat Exam: normal ENT inspection, pharynx normal, moist mucous membranes Neck Exam: normal inspection, non-tender, supple, full range of motion Respiratory Exam: diminished breath sounds, wheezing, No respiratory distress Cardiovascular Exam: regular rate/rhythm, normal heart sounds Gastrointestinal/Abdomen Exam: soft, No tenderness, No mass Extremity Exam: normal inspection, normal range of motion Back Exam: normal inspection, normal range of motion, No CVA tenderness, No vertebral tenderness Male Genitalia Exam: deferred Rectal Exam: deferred Objective Data Vital Signs: Vital Signs - 24 hr Temp Pulse Resp BP BP Pulse Ox 10/02/23 11:22 97.8 F 95 H 16 138/80 92 L 10/02/23 10:29 97 H 18 95 10/02/23 07:12 82 18 96 10/02/23 07:03 97.8 F 82 16 122/73 92 L 10/02/23 04:00 98.2 F 80 18 128/75 98 10/02/23 00:00 97.9 F 84 19 112/69 98 10/01/23 20:00 97.9 F 94 H 20 110/62 99 10/01/23 18:40 96 H 18 89 L 10/01/23 16:00 97.5 F 89 16 121/70 92 L 10/01/23 14:11 85 16 93 L 10/01/23 12:24 98 F 92 H 16 117/56 96 10/01/23 12:00 93 H 8 L 88/55 91 L Pain Assessment - Last Documented Pain Intensity 9 Intake and Output: Intake & Output 09/29/23 09/30/23 10/01/23 10/02/23 11:59 11:59 11:59 11:59 Intake Total 2783 Balance 2783 Weight 110.5 kg 107.4 kg Lab Results: Lab Results-Last 24 Hours 10/01/23 10/01/23 10/01/23 Range/Units 11:35 15:25 15:25 WBC (4.0-10.5) x10^3/uL RBC (4.1-5.6) x10^6/uL Hgb (12.5-18.0) g/dL Hct (42-50) % MCV (78-100) fL MCH (26-32) pg MCHC (32-36) g/dL RDW (11.5-14.0) % Plt Count (150-450) x10^3/uL MPV (7.5-11.0) fL Sodium (135-145) mmol/L Potassium (3.5-5.1) mmol/L Chloride (98-107) mmol/L Carbon Dioxide (22-30) mmol/L Anion Gap (5-15) MEQ/L BUN (9-20) mg/dL Creatinine (0.66-1.25) mg/dL Estimated GFR ML/MIN Glucose (74-106) mg/dL POC Glucometer (74 to 106) mg/dL Lactic Acid 1.6 (0.4-2.0) Calcium (8.4-10.2) mg/dL Total Bilirubin (0.2-1.3) mg/dL AST (17-59) U/L ALT (0-50) U/L Alkaline Phosphatase (38-126) U/L Troponin I < 0.012 < 0.012 (0.000-0.033) ng/mL Serum Total Protein (6.3-8.2) g/dL Albumin (3.5-5.0) g/dL Procalcitonin (0.030-0.080) ng/mL 10/01/23 10/01/23 10/01/23 Range/Units 16:37 20:20 Unknown WBC (4.0-10.5) x10^3/uL RBC (4.1-5.6) x10^6/uL Hgb (12.5-18.0) g/dL Hct (42-50) % MCV (78-100) fL MCH (26-32) pg MCHC (32-36) g/dL RDW (11.5-14.0) % Plt Count (150-450) x10^3/uL MPV (7.5-11.0) fL Sodium (135-145) mmol/L Potassium (3.5-5.1) mmol/L Chloride (98-107) mmol/L Carbon Dioxide (22-30) mmol/L Anion Gap (5-15) MEQ/L BUN (9-20) mg/dL Creatinine (0.66-1.25) mg/dL Estimated GFR ML/MIN Glucose (74-106) mg/dL POC Glucometer 171 H 188 H (74 to 106) mg/dL Lactic Acid (0.4-2.0) Calcium (8.4-10.2) mg/dL Total Bilirubin (0.2-1.3) mg/dL AST (17-59) U/L ALT (0-50) U/L Alkaline Phosphatase (38-126) U/L Troponin I (0.000-0.033) ng/mL Serum Total Protein (6.3-8.2) g/dL Albumin (3.5-5.0) g/dL Procalcitonin 6.370 H* (0.030-0.080) ng/mL 10/02/23 10/02/23 10/02/23 Range/Units 06:15 06:15 07:20 WBC 14.7 H (4.0-10.5) x10^3/uL RBC 4.13 (4.1-5.6) x10^6/uL Hgb 11.9 L (12.5-18.0) g/dL Hct 38.0 L (42-50) % MCV 92.0 (78-100) fL MCH 28.8 (26-32) pg MCHC 31.3 L (32-36) g/dL RDW 14.4 H (11.5-14.0) % Plt Count 179 (150-450) x10^3/uL MPV 9.0 (7.5-11.0) fL Sodium 137 (135-145) mmol/L Potassium 3.6 (3.5-5.1) mmol/L Chloride 112 H (98-107) mmol/L Carbon Dioxide 19 L (22-30) mmol/L Anion Gap 10.5 (5-15) MEQ/L BUN 13 (9-20) mg/dL Creatinine 0.77 (0.66-1.25) mg/dL Estimated GFR 100.6 ML/MIN Glucose 127 H (74-106) mg/dL POC Glucometer 126 H (74 to 106) mg/dL Lactic Acid (0.4-2.0) Calcium 8.8 (8.4-10.2) mg/dL Total Bilirubin 1.10 (0.2-1.3) mg/dL AST 64 H (17-59) U/L ALT 24 (0-50) U/L Alkaline Phosphatase 81 (38-126) U/L Troponin I (0.000-0.033) ng/mL Serum Total Protein 6.8 (6.3-8.2) g/dL Albumin 3.7 (3.5-5.0) g/dL Procalcitonin (0.030-0.080) ng/mL Radiology Exams: Radiology Procedures Category Date Time Status CHEST 1 VIEW (PORTABLE) Stat Exams 10/01/23 07:22 Completed HEAD WITHOUT CONTRAST [CT] Stat Exams 10/01/23 06:45 Completed HIP UNI (2V) INCL PEL IF DONE Stat Exams 10/01/23 07:22 Completed THORACOLUMBAR SPINE Stat Exams 10/01/23 07:31 Completed Assessment/Plan (1) Sepsis Current Visit: Yes Status: Acute (2) Fall Current Visit: Yes Status: Acute Qualifiers: Encounter type: initial encounter Qualified Code(s): W19.XXXA - Unspecified fall, initial encounter Code(s): W19.XXXA - UNSPECIFIED FALL, INITIAL ENCOUNTER (3) Hypotension Current Visit: Yes Status: Acute Qualifiers: Hypotension type: unspecified hypotension type Qualified Code(s): I95.9 - Hypotension, unspecified Code(s): I95.9 - HYPOTENSION, UNSPECIFIED (4) Right lower lobe pneumonia Current Visit: Yes Status: Acute Qualifiers: Pneumonia type: due to unspecified organism Qualified Code(s): J18.9 - Pneumonia, unspecified organism Code(s): J18.9 - PNEUMONIA, UNSPECIFIED ORGANISM (5) Acute exacerbation of chronic low back pain Current Visit: No Status: Acute Code(s): M54.50 - LOW BACK PAIN, UNSPECIFIED; G89.29 - OTHER CHRONIC PAIN (6) Diabetes mellitus Current Visit: No Status: Chronic Qualifiers: Diabetes mellitus type: type 2 Diabetes mellitus roasterman insulin use: with roasterman use Diabetes mellitus complication status: without complication Qualified Code(s): E11.9 - Type 2 diabetes mellitus without complications; Z79.4 - [facility] (current) use of insulin Code(s): E11.9 - TYPE 2 DIABETES MELLITUS WITHOUT COMPLICATIONS (7) Altered mental status Current Visit: No Status: Resolved Assessment & Plan: (1) Sepsis Current Visit: Yes Status: Acute Assessment & Plan: - + hypotension, HR > 90, temp of 100.2 on admission, lactate > 2, + pneumonia - 2:2 RLL pneumonia - BCx2- Pending - Lactic acid 2.3 @ 07:40, 2.1@ 09:43- trend- 1L fluid bolus x2 gave in ER - repeat LA 1.6 - Continue IVF - tele 10/01 - LA 0.8 - pt refused tele - hypotension resolved (2) Fall Current Visit: Yes Status: Acute Qualifiers: Encounter type: initial encounter Qualified Code(s): W19.XXXA - Unspecified fall, initial encounter Assessment & Plan: - unknown cause of fall - Possibly 2:2 [address] - [address] head 09/30 IMPRESSION: 1. No intracranial hemorrhage, established major territorial infarct, or mass effect was noted. 2. Age-matched involutional brain changes. 3. No interval changes. - HIP XR 09/30 IMPRESSION: 1. No acute osseous abnormality seen in the pelvis and right hip joint. 2. Osteopenia and moderate to severe osteoarthritis in both hip joints. 3. Both hip joints are deformed possible AVM cannot be excluded, needs clinical correlation. 4. Bilateral sacroiliitis. - CXR 09/30 Portable chest demonstrates clearing left base pleural parenchymal opacity. Stable diffuse right lung infiltrate/atelectasis without consolidation or large effusion. Heart not enlarged. No new cardiopulmonary abnormalities. - lumbar spine XR's 09/30 3 view lumbar spine demonstrates 5 lumbar segments in normal alignment with osteopenia, mild/moderate multilevel thoracolumbar degenerative spondylosis greatest at L4-S1, and mild aortic calcifications. No other bony, articular, or soft tissue abnormalities 10/01 - Multiple bruises from fall showing up today on back and bottom Code(s): W19.XXXA - UNSPECIFIED FALL, INITIAL ENCOUNTER (3) Hypotension Current Visit: Yes Status: Acute Qualifiers: Hypotension type: unspecified hypotension type Qualified Code(s): I95.9 - Hypotension, unspecified Assessment & Plan: - 2:2 sepsis from pneumonia - NS @ 100ml/hr - hold home narcotic pain and BP meds for now 10/01 - resolved Code(s): I95.9 - HYPOTENSION, UNSPECIFIED (4) Right lower lobe pneumonia Current Visit: Yes Status: Acute Qualifiers: Pneumonia type: due to unspecified organism Qualified Code(s): J18.9 - Pneumonia, unspecified organism Assessment & Plan: - ceftriaxone and azithromycin - O2 at baseline 4LNC 94% - RT eval - IS - duonebs - CXR 09/30 Portable chest demonstrates clearing left base pleural parenchymal opacity. Stable diffuse right lung infiltrate/atelectasis without consolidation or large effusion. Heart not enlarged. No new cardiopulmonary abnormalities. 10/01 - WBC 14.7 - coughing yellow thick sputum - At BL O2 4lNC 96% Code(s): J18.9 - PNEUMONIA, UNSPECIFIED ORGANISM (5) Acute exacerbation of chronic low back pain Current Visit: No Status: Acute Assessment & Plan: - tylenol for pain - heating pad if needed - see above XR results 10/01 - hypotension resolved- restarted morphine home dosing Code(s): M54.50 - LOW BACK PAIN, UNSPECIFIED; G89.29 - OTHER CHRONIC PAIN (6) Diabetes mellitus Current Visit: No Status: Chronic Qualifiers: Diabetes mellitus type: type 2 Diabetes mellitus roasterman insulin use: with half-way use Diabetes mellitus complication status: without complication Qualified Code(s): E11.9 - Type 2 diabetes mellitus without complications; Z79.4 - [facility] long term care (current) use of insulin Assessment & Plan: - Accuchecks ac/hs - Levimer BID, low dose s/s humalog Code(s): E11.9 - TYPE 2 DIABETES MELLITUS WITHOUT COMPLICATIONS (7) Altered mental status Current Visit: No Status: Resolved Assessment & Plan: - slow to respond to questions - see CT results above 10/01 - Pt is more awake and alert today Code(s): R41.82 - ALTERED MENTAL STATUS, UNSPECIFIED Code(s): R41.82 - ALTERED MENTAL STATUS, UNSPECIFIED (8) Low bicarbonate level Current Visit: Yes Status: Acute Assessment & Plan: - CO2 19 - 2:2 pneumonia - Start sodium bicarb gtt VTE: plavix, scd's PPI: pantoprazole Next of KIN: Sibling- Yoly Romero [phone] D/c plan: 1-2 days Code status: full Code(s): E87.8 - OTH DISORDERS OF ELECTROLYTE AND FLUID BALANCE, NEC
[2023-10-02] MEDS: HUMALOG SQ PRN (20:17)
[2023-10-03 04:58] LABS: Mean Cell Volume 91.2 fL (78-100); Mean Corpuscular Hemoglobin 28.5 pg (26-32); Mean Corpuscular Hgb Concent. 31.3 g/dL (32-36); Platelet Count 147 x10^3/uL (150-450); Red Blood Count 3.51 x10^6/uL (4.1-5.6); Red Cell Distribution Width 14.4 % (11.5-14.0); White Blood Count 9.1 x10^3/uL (4.0-10.5)
[2023-10-03 05:19] LABS: ALBUMIN 3.1 g/dL (3.5-5.0); ANION GAP 9.5 MEQ/L (5-15); BILIRUBIN,TOTAL 0.6 mg/dL (0.2-1.3); Calcium 8.3 mg/dL (8.4-10.2); Creatinine 1 0.74 mg/dL (0.66-1.25); EST GLOMERULAR FILTRATION RATE 101.8 ML/MIN; Potassium 3.3 mmol/L (3.5-5.1); Total Protein 5.9 g/dL (6.3-8.2)
--- NOTE | 2023-10-03 05:22 | PCM.NOTE ---
Date and Time: 10/03/23 0514 Subjective Assessment: Mr. Joya is a 63 year old male admitted to [facility] on 10/01/23 after a fall at the nursing facility he resides at and diagnosed with sepsis/acute respiratory failure secondary to healthcare acquired RLL pneumonia being treated with ceftriaxone/azithromycin. Patient is at his baseline oxygen of 4L. No acute fin dings on CT of the head, right hip xray, cxr, thoracolumbar spine. Labs indicating metabolic acidosis, bicarb gtt initiated with co2 levels at 19 on 10/02/23. Objective Data Vital Signs: Vital Signs - 24 hr Temp Pulse Resp BP Pulse Ox 10/03/23 04:00 97.1 F 75 19 107/61 99 10/03/23 00:00 98.5 F 89 19 107/59 96 10/02/23 19:54 97.9 F 85 19 130/70 97 10/02/23 18:41 67 16 95 10/02/23 15:06 97.7 F 99 H 16 120/73 94 L 10/02/23 14:55 91 H 16 96 10/02/23 11:22 97.8 F 95 H 16 138/80 92 L 10/02/23 10:29 97 H 18 95 10/02/23 07:12 82 18 96 10/02/23 07:03 97.8 F 82 16 122/73 92 L Pain Assessment - Last Documented Pain Intensity 0 Intake and Output: Intake & Output 09/30/23 10/01/23 10/02/23 10/03/23 11:59 11:59 11:59 11:59 Intake Total 2783 4061 Balance 2783 4061 Weight 110.5 kg 107.4 kg Lab Results: Lab Results-Last 24 Hours 10/02/23 10/02/23 10/02/23 Range/Units 06:15 06:15 07:20 WBC 14.7 H (4.0-10.5) x10^3/uL RBC 4.13 (4.1-5.6) x10^6/uL Hgb 11.9 L (12.5-18.0) g/dL Hct 38.0 L (42-50) % MCV 92.0 (78-100) fL MCH 28.8 (26-32) pg MCHC 31.3 L (32-36) g/dL RDW 14.4 H (11.5-14.0) % Plt Count 179 (150-450) x10^3/uL MPV 9.0 (7.5-11.0) fL Sodium 137 (135-145) mmol/L Potassium 3.6 (3.5-5.1) mmol/L Chloride 112 H (98-107) mmol/L Carbon Dioxide 19 L (22-30) mmol/L Anion Gap 10.5 (5-15) MEQ/L BUN 13 (9-20) mg/dL Creatinine 0.77 (0.66-1.25) mg/dL Estimated GFR 100.6 ML/MIN Glucose 127 H (74-106) mg/dL POC Glucometer 126 H (74 to 106) mg/dL Lactic Acid (0.4-2.0) Calcium 8.8 (8.4-10.2) mg/dL Total Bilirubin 1.10 (0.2-1.3) mg/dL AST 64 H (17-59) U/L ALT 24 (0-50) U/L Alkaline Phosphatase 81 (38-126) U/L Serum Total Protein 6.8 (6.3-8.2) g/dL Albumin 3.7 (3.5-5.0) g/dL 10/02/23 10/02/23 10/02/23 Range/Units 11:42 11:54 16:40 WBC (4.0-10.5) x10^3/uL RBC (4.1-5.6) x10^6/uL Hgb (12.5-18.0) g/dL Hct (42-50) % MCV (78-100) fL MCH (26-32) pg MCHC (32-36) g/dL RDW (11.5-14.0) % Plt Count (150-450) x10^3/uL MPV (7.5-11.0) fL Sodium (135-145) mmol/L Potassium (3.5-5.1) mmol/L Chloride (98-107) mmol/L Carbon Dioxide (22-30) mmol/L Anion Gap (5-15) MEQ/L BUN (9-20) mg/dL Creatinine (0.66-1.25) mg/dL Estimated GFR ML/MIN Glucose (74-106) mg/dL POC Glucometer 192 H 196 H (74 to 106) mg/dL Lactic Acid 0.8 (0.4-2.0) Calcium (8.4-10.2) mg/dL Total Bilirubin (0.2-1.3) mg/dL AST (17-59) U/L ALT (0-50) U/L Alkaline Phosphatase (38-126) U/L Serum Total Protein (6.3-8.2) g/dL Albumin (3.5-5.0) g/dL 10/02/23 10/03/23 Range/Units 20:05 04:52 WBC 9.1 (4.0-10.5) x10^3/uL RBC 3.51 L (4.1-5.6) x10^6/uL Hgb 10.0 L (12.5-18.0) g/dL Hct 32.0 L (42-50) % MCV 91.2 (78-100) fL MCH 28.5 (26-32) pg MCHC 31.3 L (32-36) g/dL RDW 14.4 H (11.5-14.0) % Plt Count 147 L (150-450) x10^3/uL MPV 9.0 (7.5-11.0) fL Sodium (135-145) mmol/L Potassium (3.5-5.1) mmol/L Chloride (98-107) mmol/L Carbon Dioxide (22-30) mmol/L Anion Gap (5-15) MEQ/L BUN (9-20) mg/dL Creatinine (0.66-1.25) mg/dL Estimated GFR ML/MIN Glucose (74-106) mg/dL POC Glucometer 209 H (74 to 106) mg/dL Lactic Acid (0.4-2.0) Calcium (8.4-10.2) mg/dL Total Bilirubin (0.2-1.3) mg/dL AST (17-59) U/L ALT (0-50) U/L Alkaline Phosphatase (38-126) U/L Serum Total Protein (6.3-8.2) g/dL Albumin (3.5-5.0) g/dL Radiology Exams: Radiology Procedures Category Date Time Status CHEST 1 VIEW (PORTABLE) Stat Exams 10/01/23 07:22 Completed HEAD WITHOUT CONTRAST [CT] Stat Exams 10/01/23 06:45 Completed HIP UNI (2V) INCL PEL IF DONE Stat Exams 10/01/23 07:22 Completed THORACOLUMBAR SPINE Stat Exams 10/01/23 07:31 Completed Assessment/Plan (1) Sepsis Current Visit: Yes Status: Acute Assessment & Plan: -Most likely secondary to right lower lobe pneumonia seen on cxr -Received 2L fluid bolus -LA now WNL -Bcult with NGTD, will follow -Procal 6.370 on admission -WBC now WNL -treated with ceftriaxone/azith (last day) -No longer meets sepsis criteria (2) Right lower lobe pneumonia Current Visit: Yes Status: Acute Qualifiers: Pneumonia type: due to unspecified organism Qualified Code(s): J18.9 - Pneumonia, unspecified organism Assessment & Plan: -CXR showing infiltre in RLL -Supplemental oxygen for spo2 goal >88-92% -Patient at his baseline oxygen of 4L -Continue ceftriaxone/azithromycin (last days of azith) Code(s): J18.9 - PNEUMONIA, UNSPECIFIED ORGANISM (3) Fall Current Visit: Yes Status: Acute Qualifiers: Encounter type: initial encounter Qualified Code(s): W19.XXXA - Unspecified fall, initial encounter Assessment & Plan: -Although cause of fall is unknown, could be secondary to pneumonia -CT with no acute findings -XR right hip with no acute findings - both hip joints show deformity possible AVM and bilateral sacroilitis -Lumbar spine XR/toracolumbar spine with chronic findings of degenerative spondylosis -Continue pain control Code(s): W19.XXXA - UNSPECIFIED FALL, INITIAL ENCOUNTER (4) Hypotension Current Visit: Yes Status: Acute Qualifiers: Hypotension type: unspecified hypotension type Qualified Code(s): I95.9 - Hypotension, unspecified Assessment & Plan: -Resolved with fluid bolus -remains stable Code(s): I95.9 - HYPOTENSION, UNSPECIFIED (5) Acute exacerbation of chronic low back pain Current Visit: No Status: Acute Assessment & Plan: - tylenol for pain - heating pad if needed - see above XR results 10/01 - hypotension resolved- restarted morphine home dosing Code(s): M54.50 - LOW BACK PAIN, UNSPECIFIED; G89.29 - OTHER CHRONIC PAIN (6) Diabetes mellitus Current Visit: No Status: Chronic Qualifiers: Diabetes mellitus type: type 2 Diabetes mellitus penitentiary insulin use: with penitentiary use Diabetes mellitus complication status: without complication Qualified Code(s): E11.9 - Type 2 diabetes mellitus without complications; Z79.4 - correction (current) use of insulin Assessment & Plan: -ADA diet -SSI - low dose -Levemier BID Code(s): E11.9 - TYPE 2 DIABETES MELLITUS WITHOUT COMPLICATIONS (7) Altered mental status Current Visit: No Status: Resolved Assessment & Plan: -CT head with no acute findings -mentation improving -continue to monitor, consider MRI if no improvement Code(s): R41.82 - ALTERED MENTAL STATUS, UNSPECIFIED (8) Low bicarbonate level Current Visit: Yes Status: Acute Assessment & Plan: -Bicarb gtt for co2 level of 19 Code(s): E87.8 - OTH DISORDERS OF ELECTROLYTE AND FLUID BALANCE, NEC
[2023-10-03] MEDS: Klor Con PO SCH (07:34)
[2023-10-03 08:02] VITALS: RESP 22
--- NOTE | 2023-10-03 11:16 | PCM.DS ---
Discharge Summary Date of Admission: 10/01/23 12:11 Date of Discharge: 10/03/23 Admitting Physician: FARIHA ASHLEY MD Primary Care Provider: TERENCE GIBBS Allergies Allergies amitriptyline HCl [From Elavil] Allergy (Severe, Verified 10/01/23 06:54) Rapid Heart Beat hallucination tramadol HCl [From Ultram] Allergy (Severe, Verified 10/01/23 06:54) double vision divalproex sodium [From Depakote] Allergy (Verified 10/01/23 06:54) alprazolam [From Xanax] Adverse Reaction (Severe, Verified 10/01/23 06:54) makes me aggitated Hospital Summary - Hospital Course Hospital Course: Mr. Joya is a 63 year old male admitted to [facility] on 10/01/23 after a fall at the nursing facility he resides at and diagnosed with sepsis/acute respiratory failure secondary to healthcare acquired RLL pneumonia being treated IP with ceftriaxone/azithromycin. Patient is at his baseline oxygen of 4L. No acute findings on CT of the head, right hip xray, cxr, thoracolumbar spine. Labs indicating metabolic acidosis, bicarb gtt initiated with co2 levels at 19 on , now resolved. No longer meeting SIRS/Sepsis criteria. WBC now WNL. Electrolytes have been replenished. He has received his last dose of azithromycin. Will discharge to [facility] on cefpodoxime. Advised follow up in one week with CXR for treatment response and resolution of pneumonia. Discharge Note New Diagnosis: Pnuemonia New Medications: cefpodoxime Follow Up: PCP Latest Assessment & Plan 1) Sepsis Current Visit: Yes Status: Acute Assessment & Plan: -Most likely secondary to right lower lobe pneumonia seen on cxr -Received 2L fluid bolus -LA now WNL -Bcult with NGTD, will follow -Procal 6.370 on admission -WBC now WNL -treated with ceftriaxone/azith (last day) -No longer meets sepsis criteria (2) Right lower lobe pneumonia Current Visit: Yes Status: Acute Qualifiers: Pneumonia type: due to unspecified organism Qualified Code(s): J18.9 - Pneumonia, unspecified organism Assessment & Plan: -CXR showing infiltre in RLL -Supplemental oxygen for spo2 goal >88-92% -Patient at his baseline oxygen of 4L -Continue ceftriaxone/azithromycin (last days of azith) - continue at [facility] with cefpodoxime Code(s): J18.9 - PNEUMONIA, UNSPECIFIED ORGANISM (3) Fall Current Visit: Yes Status: Acute Qualifiers: Encounter type: initial encounter Qualified Code(s): W19.XXXA - Unspecified fall, initial encounter Assessment & Plan: -Although cause of fall is unknown, could be secondary to pneumonia -CT with no acute findings -XR right hip with no acute findings - both hip joints show deformity possible AVM and bilateral sacroilitis -Lumbar spine XR/toracolumbar spine with chronic findings of degenerative spondylosis -Continue pain control Code(s): W19.XXXA - UNSPECIFIED FALL, INITIAL ENCOUNTER (4) Hypotension Current Visit: Yes Status: Acute Qualifiers: Hypotension type: unspecified hypotension type Qualified Code(s): I95.9 - Hypotension, unspecified Assessment & Plan: -Resolved with fluid bolus -remains stable Code(s): I95.9 - HYPOTENSION, UNSPECIFIED (5) Acute exacerbation of chronic low back pain Current Visit: No Status: Acute Assessment & Plan: - tylenol for pain - heating pad if needed - see above XR results 10/01 - hypotension resolved- restarted morphine home dosing Code(s): M54.50 - LOW BACK PAIN, UNSPECIFIED; G89.29 - OTHER CHRONIC PAIN (6) Diabetes mellitus Current Visit: No Status: Chronic Qualifiers: Diabetes mellitus type: type 2 Diabetes mellitus 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 insulin use: with 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 use Diabetes mellitus complication status: without complication Qualified Code(s): E11.9 - Type 2 diabetes mellitus without complications; Z79.4 - [facility] (current) use of insulin Assessment & Plan: -ADA diet -SSI - low dose -Levemier BID Code(s): E11.9 - TYPE 2 DIABETES MELLITUS WITHOUT COMPLICATIONS (7) Altered mental status Current Visit: No Status: Resolved Assessment & Plan: -CT head with no acute findings -mentation improving -continue to monitor, consider MRI if no improvement Code(s): R41.82 - ALTERED MENTAL STATUS, UNSPECIFIED (8) Low bicarbonate level Current Visit: Yes Status: Acute Assessment & Plan: -Bicarb gtt for co2 level of 19 15 -Resolved, gtt discontinued (9) hypokalemia -PO replenishment per protocol, when WNL can discharge to [facility] Code(s): E87.8 - OTH DISORD I spent 35 minutes [id number] with the patient on the day of discharge performing discharge exam, discussing hospital stay and discharge instructions with patient and caregivers, preparation of discharge records, prescriptions & referral forms and addressing any questions/concerns the patient had as documented above. - Vitals & Intake/Output Vital Signs: Vital Signs Temperature 96.6 F 10/03/23 08:00 Pulse Rate 76 10/03/23 10:53 Respiratory Rate 22 10/03/23 10:53 Blood Pressure 127/65 10/03/23 08:00 O2 Sat by Pulse Oximetry 92 L 10/03/23 10:53 Intake & Output: Intake & Output 09/30/23 10/01/23 10/02/23 10/03/23 11:59 11:59 11:59 11:59 Intake Total 2783 4181 Balance 2783 4181 Weight 110.5 kg 107.4 kg - Lab Result Diagrams: 10/03/23 04:52 10/03/23 10:23 Lab Results-Last 24 Hrs: Lab Results-Last 24 Hours 10/02/23 10/02/23 10/02/23 Range/Units 11:42 11:54 16:40 WBC (4.0-10.5) x10^3/uL RBC (4.1-5.6) x10^6/uL Hgb (12.5-18.0) g/dL Hct (42-50) % MCV (78-100) fL MCH (26-32) pg MCHC (32-36) g/dL RDW (11.5-14.0) % Plt Count (150-450) x10^3/uL MPV (7.5-11.0) fL Sodium (135-145) mmol/L Potassium (3.5-5.1) mmol/L Chloride (98-107) mmol/L Carbon Dioxide (22-30) mmol/L Anion Gap (5-15) MEQ/L BUN (9-20) mg/dL Creatinine (0.66-1.25) mg/dL Estimated GFR ML/MIN Glucose (74-106) mg/dL POC Glucometer 192 H 196 H (74 to 106) mg/dL Lactic Acid 0.8 (0.4-2.0) Calcium (8.4-10.2) mg/dL Magnesium (1.6-2.3) mg/dL Total Bilirubin (0.2-1.3) mg/dL AST (17-59) U/L ALT (0-50) U/L Alkaline Phosphatase (38-126) U/L Serum Total Protein (6.3-8.2) g/dL Albumin (3.5-5.0) g/dL 25-OH Vitamin D Total (30-100) ng/mL 10/02/23 10/03/23 10/03/23 Range/Units 20:05 04:52 04:52 WBC 9.1 (4.0-10.5) x10^3/uL RBC 3.51 L (4.1-5.6) x10^6/uL Hgb 10.0 L (12.5-18.0) g/dL Hct 32.0 L (42-50) % MCV 91.2 (78-100) fL MCH 28.5 (26-32) pg MCHC 31.3 L (32-36) g/dL RDW 14.4 H (11.5-14.0) % Plt Count 147 L (150-450) x10^3/uL MPV 9.0 (7.5-11.0) fL Sodium (135-145) mmol/L Potassium (3.5-5.1) mmol/L Chloride (98-107) mmol/L Carbon Dioxide (22-30) mmol/L Anion Gap (5-15) MEQ/L BUN (9-20) mg/dL Creatinine (0.66-1.25) mg/dL Estimated GFR ML/MIN Glucose (74-106) mg/dL POC Glucometer 209 H (74 to 106) mg/dL Lactic Acid (0.4-2.0) Calcium (8.4-10.2) mg/dL Magnesium (1.6-2.3) mg/dL Total Bilirubin (0.2-1.3) mg/dL AST (17-59) U/L ALT (0-50) U/L Alkaline Phosphatase (38-126) U/L Serum Total Protein (6.3-8.2) g/dL Albumin (3.5-5.0) g/dL 25-OH Vitamin D Total 75.6 (30-100) ng/mL 10/03/23 10/03/23 10/03/23 Range/Units 04:52 04:52 07:54 WBC (4.0-10.5) x10^3/uL RBC (4.1-5.6) x10^6/uL Hgb (12.5-18.0) g/dL Hct (42-50) % MCV (78-100) fL MCH (26-32) pg MCHC (32-36) g/dL RDW (11.5-14.0) % Plt Count (150-450) x10^3/uL MPV (7.5-11.0) fL Sodium 138 (135-145) mmol/L Potassium 3.3 L (3.5-5.1) mmol/L Chloride 108 H (98-107) mmol/L Carbon Dioxide 24 (22-30) mmol/L Anion Gap 9.5 (5-15) MEQ/L BUN 13 (9-20) mg/dL Creatinine 0.74 (0.66-1.25) mg/dL Estimated GFR 101.8 ML/MIN Glucose 104 (74-106) mg/dL POC Glucometer 118 H (74 to 106) mg/dL Lactic Acid (0.4-2.0) Calcium 8.3 L (8.4-10.2) mg/dL Magnesium 2.1 (1.6-2.3) mg/dL Total Bilirubin 0.60 (0.2-1.3) mg/dL AST 58 (17-59) U/L ALT 23 (0-50) U/L Alkaline Phosphatase 69 (38-126) U/L Serum Total Protein 5.9 L (6.3-8.2) g/dL Albumin 3.1 L (3.5-5.0) g/dL 25-OH Vitamin D Total (30-100) ng/mL 10/03/23 Range/Units 10:23 WBC (4.0-10.5) x10^3/uL RBC (4.1-5.6) x10^6/uL Hgb (12.5-18.0) g/dL Hct (42-50) % MCV (78-100) fL MCH (26-32) pg MCHC (32-36) g/dL RDW (11.5-14.0) % Plt Count (150-450) x10^3/uL MPV (7.5-11.0) fL Sodium (135-145) mmol/L Potassium 3.7 (3.5-5.1) mmol/L Chloride (98-107) mmol/L Carbon Dioxide (22-30) mmol/L Anion Gap (5-15) MEQ/L BUN (9-20) mg/dL Creatinine (0.66-1.25) mg/dL Estimated GFR ML/MIN Glucose (74-106) mg/dL POC Glucometer (74 to 106) mg/dL Lactic Acid (0.4-2.0) Calcium (8.4-10.2) mg/dL Magnesium (1.6-2.3) mg/dL Total Bilirubin (0.2-1.3) mg/dL AST (17-59) U/L ALT (0-50) U/L Alkaline Phosphatase (38-126) U/L Serum Total Protein (6.3-8.2) g/dL Albumin (3.5-5.0) g/dL 25-OH Vitamin D Total (30-100) ng/mL Micro Results-Entire Visit: Microbiology 10/01/23 12:30 Blood Culture - Preliminary Blood 10/01/23 07:10 Blood Culture - Preliminary Blood Accuchecks Date 10/03/23 Date 10/02/23 Date 10/02/23 Date 10/02/23 Time 08:02 Time 20:00 Time 16:43 Time 11:47 - Procedures and Test Procedures and Tests throughout Hospitalization: Therapy Orders & Screens 10/01/23 12:23 Respiratory Therapy Assessment DAILY Comment: Diagnosis: pneumonia 10/01/23 12:24 Incentive Spirometry TID Comment: Diagnosis: pneumonia 10/01/23 13:43 Oxygen NASAL CANNULA 4 lpm Comment: Diagnosis: pneumonia 10/02/23 07:29 Incentive Spirometry Q1H Comment: Diagnosis: pneumonia Discharge Exam General Appearance: no apparent distress Neurologic Exam: alert, oriented x 3, cooperative Eye Exam: PERRL Ears, Nose, Throat Exam: normal ENT inspection Neck Exam: normal inspection Respiratory Exam: crackles/rales Cardiovascular Exam: regular rate/rhythm, normal heart sounds Gastrointestinal/Abdomen Exam: soft, normal bowel sounds Male Genitalia Exam: deferred Rectal Exam: deferred Back Exam: normal inspection Extremity Exam: normal inspection Skin Exam: normal color Final Diagnosis/Problem List - Final Discharge Diagnosis/Problem (1) Sepsis Current Visit: Yes Status: Resolved (2) Right lower lobe pneumonia Current Visit: Yes Status: Acute Code(s): J18.9 - PNEUMONIA, UNSPECIFIED ORGANISM (3) Fall Current Visit: Yes Status: Acute Code(s): W19.XXXA - UNSPECIFIED FALL, INITIAL ENCOUNTER (4) Hypotension Current Visit: Yes Status: Resolved Code(s): I95.9 - HYPOTENSION, U NSPECIFIED (5) Acute exacerbation of chronic low back pain Current Visit: No Status: Chronic Code(s): M54.50 - LOW BACK PAIN, UNSPECIFIED; G89.29 - OTHER CHRONIC PAIN (6) Diabetes mellitus Current Visit: No Status: Chronic Code(s): E11.9 - TYPE 2 DIABETES MELLITUS WITHOUT COMPLICATIONS (7) Altered mental status Current Visit: No Status: Resolved Code(s): R41.82 - ALTERED MENTAL STATUS, UNSPECIFIED (8) Low bicarbonate level Current Visit: Yes Status: Resolved Code(s): E87.8 - OTH DISORDERS OF ELECTROLYTE AND FLUID BALANCE, NEC - Discharge Disposition: DC TO [facility] Condition: Stable Prescriptions: New Cefpodoxime Proxetil 200 mg [Vantin 200 mg] 200 mg PO BID 10 Days #20 tablet Continue Cholecalciferol (Vitamin D3) [Vitamin D3] 5,000 unit PO DAILY Ranolazine 500 MG [Ranexa 500 MG] 500 mg PO BID Morphine Sulfate [Morphine Sulfate ER] 60 mg PO TID Famotidine 40 mg PO BID Clopidogrel Bisulfate [PLAVIX Tablet] 75 mg PO DAILY Baclofen 10 mg [Lioresal 10 mg] 10 mg PO BID Calcium Carbonate/Vitamin D3 [Calcium 600-Vit D3 200 Tablet] 1 each PO DAILY Fluticasone/Umeclidin/Vilanter [Trelegy Ellipta 200-62.5-25] 1 inh PO DAILY Folic Acid 1 mg [Folate 1 mg] 1 mg PO DAILY guaiFENesin [Mucus ER] 600 mg PO Q12H Linagliptin [Tradjenta] 5 mg PO DAILY Montelukast Sodium 10 mg [Singulair 10 MG] 10 mg PO QHS PANTOPRAZOLE 40 mg Tablet [Protonix 40MG Tablet] 40 mg PO BID Sertraline HCl 50 mg PO DAILY Sucralfate 1 gm [Carafate 1 GM] 1 gm PO BID levalbuterol HCl [Xopenex 1.25 MG/0.5 ML UD NEBULE] 2 puff IH BID Albuterol Common Canister [Ventolin Common Canister] 2 puff IH Q4H PRN PRN PRN Reason: Shortness Of Breath Acetaminophen 325 mg [Tylenol 325 mg] 650 mg PO Q4H PRN PRN PRN Reason: Pain And/Or Fever Topiramate [Topamax] 75 mg PO BID Rosuvastatin Calcium 20 mg PO QHS Carboxymethylcellulose Sodium [Refresh Liquigel] 2 drop OP QID Propranolol HCl 60 mg PO BID Nitroglycerin 0.4 mg Tablet [Nitrostat 0.4 MG Tablet] 0.4 mg SL UD Mag Hydrox/Aluminum Hyd/Simeth [Mylanta Maximum Strength Liq] 10 ml PO QID Melatonin 10 mg PO QHS Loperamide HCl 2 mg [Imodium 2 mg] 2 mg PO Q6H PRN PRN PRN Reason: Diarrhea Latanoprost [Xalatan] 1 drop OP QHS Insulin Detemir [Levemir] 50 unit SQ BID Insulin Aspart [Insulin Aspart Flexpen] 1 unit SQ UD Gabapentin 400 mg PO QID Calcium Carbonate [Alexis-Gest] 1,000 mg PO Q6H PRN PRN PRN Reason: heartburn Sodium Chloride/Aloe Vera [Saline Nasal Gel] 1 applic NS Q2H/PRN PRN PRN Reason: nasal dryness Sodium Chloride Nasal Dry Prong [OCEAN Nasal Dry Prong] 2 spray NS Q4H PRN PRN PRN Reason: nasal dryness Mineral Oil/Hydrophil Petrolat [Aquaphor Healing Ointment] 1 applic TOP Q12H PRN PRN PRN Reason: dry, cracked skin Zinc Gluconate [Zinc] 50 mg PO DAILY Guaifenesin/Dextromethorphan [Robitussin Ijifs-Kixxn-Ynpp Dm] 1 each PO Q4H PRN PRN PRN Reason: Sinus Congestion Carbamide Peroxide [Debrox] 4 drop OT Q12H PRN PRN PRN Reason: Severe Pain Menthol [Cough Drops] 5.8 mg MM Q4H PRN PRN PRN Reason: Cough Lanolin Alcohol/Mo/W.pet/[place] [Eucerin Cream] 1 gm TP Q8H PRN PRN PRN Reason: Redness/Irritation Insulin Aspart [Insulin Aspart Flexpen] 10 unit SQ TIDAC Diazepam [Valium] 2 mg PO QHS Diazepam [Valium] 1 mg PO DAILY Fluticasone Propionate [Flonase NASAL] 1 spray NS DAILY Follow up with: TERENCE GIBBS MD [Primary Care Provider] -
[2023-10-03] MEDS: NON-FORMULARY ITEM PO SCH (11:41)
[2023-10-03 12:16] VITALS: BP 126/68; PULSE 73; TEMP 98.3; O2SAT 94
== END 2023-10-03 13:30 ==
LOC: ED 06:43 → MED SURG 12:11
PROVIDERS: ADMIT Internal Medicine; ATTEND Internal Medicine
DX: A41.9 Sepsis, unspecified organism (principal); J18.9 Pneumonia, unspecified organism; W19.XXXA Unspecified fall, initial encounter; I95.9 Hypotension, unspecified; M54.50 Low back pain, unspecified; G89.29 Other chronic pain; E11.9 Type 2 diabetes mellitus without complications; R41.82 Altered mental status, unspecified; E87.8 Other disorders of electrolyte and fluid balance, not elsewhere classified; I10 Essential (primary) hypertension; I25.10 Atherosclerotic heart disease of native coronary artery without angina pectoris; I25.2 Old myocardial infarction; Z79.4 Long term (current) use of insulin; Z79.899 Other long term (current) drug therapy; Z20.828 Contact with and (suspected) exposure to other viral communicable diseases
CPT/HCPCS: 36000; 36415; 70450; 71045; 72080; 73502; 80053; 81001; 82306; 82550; 82947; 83605; 83735; 84132; 84145; 84484; 85025; 85027; 87040; 93268; 94640; 94760; 96360; 96361; 96365; 99285; G0378; Q3014; J0456; J0696; J1817; A9270-GY